=== PATIENT | female | born 1935 | race Caucasian/White ===

== ENCOUNTER 2017-05-09 18:12 | Inpatient (IN) | payer MEDICARE, MEDICAID ==
[2017-05-09 18:13] VITALS: PULSE 76
[2017-05-09] MEDS ORDERED: Sodium Chloride 0.9% 1,000 ML IV ONE (19:43)
--- NOTE | 2017-05-09 19:43 | C.PDOC ---
History Of Present Illness 81 year old female sent from correction being found to have altered mental status. As per correction, patient has not been recognizing things in the correction; they report she has a Hx of recurrent UTIs. Patient is currently complaining of abdominal pain; denies nausea, vomiting, or headache. Chief Complaint (Nursing): Fever History Per: Patient, EMS History/Exam Limitations: no limitations Onset/Duration Of Symptoms: Days Current Symptoms Are (Timing): Still Present Location Of Pain: Other (Abdomen) Sick Contacts (Context): None Associated Symptoms: Fever, Other ((+) AMS (-) Headache). denies: Nausea, Vomiting Ear Symptoms: Bilateral: None Recent travel outside of the [place]: No Additional History Per: Group Home Past Medical History Reviewed: Historical Data, Nursing Documentation, Vital Signs Vital Signs: Last Vital Signs Temp 98.1 F 05/09/17 21:30 Pulse 93 H 05/09/17 21:30 Resp 20 05/09/17 21:30 BP 144/56 L 05/09/17 21:30 Pulse Ox 96 05/09/17 21:30 - Medical History PMH: Arthritis (B/L KNEE R >L), 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), Dementia, Depression (sigle episode), Diabetes, HTN, Hypercholesterolemia, Hyperlipidemia, Osteoporosis, Parkinson's Disease, Rheumatoid Arthritis - [facility] Procedures PLICATION OF VENA CAVA (02/28/14) Family History: States: Unknown Family Hx - Social History Hx Tobacco Use: No Hx Alcohol Use: No Hx Substance Use: No - Immunization History Hx Tetanus Toxoid Vaccination: No Hx Influenza Vaccination: Yes Hx Pneumococcal Vaccination: Yes Review Of Systems Constitutional: Positive for: Fever Cardiovascular: Negative for: Chest Pain Respiratory: Negative for: Shortness of Breath Gastrointestinal: Positive for: Abdominal Pain. Negative for: Nausea, Vomiting Neurological: Positive for: Altered Mental Status. Negative for: Headache Physical Exam - Physical Exam Appears: Non-toxic, Other (Noted to have fever of 100.6) Skin: Normal Color, Warm, Dry Head: Atraumatic, Normacephalic Eye(s): bilateral: Normal Inspection Oral Mucosa: Moist Neck: Normal, No Midline Cervical Tenderness, No Paracervical Tenderness, Supple Chest: Symmetrical, No Tenderness Cardiovascular: Rhythm Regular Respiratory: Normal Breath Sounds, No Rales, No Rhonchi, No Wheezing Gastrointestinal/Abdominal: Soft, Tenderness (Nonspecific to mid abdomen), No Guarding, No Rebound Neurological/Psych: Other (Awake, Alert) ED Course And Treatment - Laboratory Results Result Diagrams: 05/09/17 20:02 05/09/17 20:02 O2 Sat by Pulse Oximetry: 91 (room air) Progress Note: CT abd/pel, CT head, blood work, CXR, and urinalysis ordered. IV fluids and toradol administered. Disposition Discussed With Dr.: Yu Franklin Doctor Will See Patient In The: Hospital Counseled Patient/Family Regarding: Diagnosis - Disposition Referrals: Faina Franklin MD [Medical Doctor] - Disposition: HOSPITALIZED Disposition Time: 22:44 Condition: STABLE Forms: [facility] ([place]) - POA Present On Arrival: None - Clinical Impression Clinical Impression: Altered mental status, Obstructive uropathy, Urinary tract infection - Scribe Statement The provider has reviewed the documentation as recorded by the Scribe Zenon Conklin All medical record entries made by the Scribe were at my direction and personally dictated by me. I have reviewed the chart and agree that the record accurately reflects my personal performance of the history, physical exam, medical decision making, and the department course for this patient. I have also personally directed, reviewed, and agree with the discharge instructions and disposition.
[2017-05-09] MEDS ORDERED: Iohexol 240 (50 ml) ONE (20:00)
[2017-05-09] MEDS ORDERED: Iohexol 240 (50 ml) PO ONE (20:00)
[2017-05-09 20:06] LABS: BASO # 0.1 K/uL (0.0-0.2); BASO % 0.6 % (0.0-2.0); EOS # 0.2 K/uL (0.0-0.7); EOS % 1.1 % (0.0-4.0); HEMOGLOBIN 11.6 g/dL (11.0-16.0); LYMPH # 3.8 K/uL (1.0-4.3); LYMPH % 24.1 % (20.0-40.0); MEAN CORPUSCULAR HEMOGLOBIN 31.5 pg (27.0-31.0); MEAN CORPUSCULAR HGB CONC 33.1 g/dL (33.0-37.0); MEAN PLATELET VOLUME 8.6 fL (7.2-11.7); MONO # 1.2 K/uL (0.0-0.8); MONO % 7.9 % (0.0-10.0); NEUT # 10.5 K/uL (1.8-7.0); NEUT % 66.3 % (50.0-75.0); NRBC % 0.1 % (0.0-2.0); RBC 3.69 Mil/uL (3.80-5.20); RED CELL DISTRIBUTION WIDTH 15.1 % (11.5-14.5); WHITE BLOOD COUNT 15.8 K/uL (4.8-10.8)
[2017-05-09] MEDS ORDERED: Sodium Chloride 0.9% 1,000 ML ONE (20:10)
[2017-05-09 20:18] LABS: CALCIUM 8.6 mg/dl (8.6-10.4); GFR AFRICAN-AMERICAN > 60; GFR NON-AFRICAN AMERICAN 60; LIPASE 300 U/L (23-300)
[2017-05-09 20:20] LABS: ALBUMIN 4.3 g/dL (3.5-5.0); ALT/SGPT 17 U/L (9-52); AST/SGOT 33 U/L (14-36); BLOOD UREA NITROGEN 18 mg/dL (7-17)
[2017-05-09] MEDS ORDERED: Iohexol 300 100 ML IJ ONE (20:30)
[2017-05-09 22:08] LABS: SQUAMOUS EPITHIAL 3 /hpf (0-5); URINE BACTERIA MOD (<OCC); URINE BILIRUBIN NEGATIVE (NEGATIVE); URINE BLOOD 1+ (NEGATIVE); URINE CLARITY Turbid (Clear); URINE COLOR Yellow (YELLOW); URINE GLUCOSE (UA) 3+ mg/dL (Normal); URINE LEUKOCYTE ESTERASE 3+ Leu/uL (Negative); URINE NITRATE POSITIVE (NEGATIVE); URINE PROTEIN 2+ mg/dL (NEGATIVE); URINE UROBILINOGEN NORMAL mg/dL (0.2-1.0); WBC CLUMPS MANY /hpf
--- NOTE | 2017-05-09 22:21 | CT ---
EXAM: CT Abdomen and Pelvis With Intravenous Contrast EXAM DATE/TIME: 05/09/2017 7:45 PM CLINICAL HISTORY: 81 years old, female; Pain; Abdominal pain; Generalized; Additional info: Mid abd pain TECHNIQUE: Axial computed tomography images of the abdomen and pelvis with intravenous contrast. All CT scans at this facility use one or more dose reduction techniques, viz.: automated exposure control; ma/kV adjustment per patient size (including targeted exams where dose is matched to indication; i.e. head); or iterative reconstruction technique. Coronal and sagittal reformatted images were created and reviewed. CONTRAST: 100 mL of omnipaque 300 administered intravenously. COMPARISON: There are no prior studies for comparison. FINDINGS: Artifacts: Motion artifact degrades image quality. Streak artifact degrades image quality. Lower thorax: Heart size is normal. There are coronary artery calcifications. There is minimal atelectasis and scarring at the lung bases. There is a small hiatal hernia. ABDOMEN: Liver: There is fatty infiltration of the liver.The liver is enlarged. Gallbladder and bile ducts: unremarkable Pancreas: Pancreas is mildly atrophic. Spleen: unremarkable Adrenals: unremarkable Kidneys and ureters: There is bilateral obstructive uropathy. There is bilateral pelvocaliectasis and ureterectasis. There are no renal or ureteral stones. Dilated ureters can be traced to the bladder. Stomach and bowel: Stomach is partially distended with an air-fluid level. Rotation is normal. There is no obstruction. Ileocecal region is unremarkable. There is a moderately large amount of stool in the right colon. Left colon is incompletely distended. There is scattered diverticulosis. Appendix: See stomach and bowel PELVIS: Bladder: Bladder is almost empty. There is marked bladder wall thickening and mucosal enhancement. There is perivesical inflammation. Reproductive: Uterus is absent. There are no adnexal masses. ABDOMEN and PELVIS: Intraperitoneal space: There is no significant fluid.There is no free air. Bones/joints: Bony structures are osteopenic. There are degenerative changes. There is sclerosis at the sacroiliac joints. Soft tissues: There are small fat containing inguinal hernias. Vasculature: An IVC filter is in place. There are vascular calcifications. There are vascular calcifications. Lymph nodes: There is no pathologic adenopathy. IMPRESSION: Bilateral obstructive uropathy secondary to bladder wall thickening; bladder wall thickening and inflammation infectious/inflammatory versus neoplastic; enlarged fatty liver; constipation, no bowel obstruction Additional nonemergent findings as described above.
[2017-05-09] MEDS ORDERED: Ciprofloxacin 400mg/200ml D5W 400 MG/200 ML BAG IVPB STA (22:35)
[2017-05-09] MEDS ORDERED: Ciprofloxacin 400mg/200ml D5W 400 MG/200 ML BAG IVPB ONE (22:39)
[2017-05-09] MEDS ORDERED: (Novolin R) Insulin Human Regular 100 units/ml vial SC ONE (22:49)
[2017-05-09] MEDS ORDERED: (Novolin R) Insulin Human Regular 100 units/ml vial ONE (23:00)
[2017-05-09] MEDS ORDERED: ACETAMINOPHEN 650 MG PO PRN (23:06)
[2017-05-10] MEDS ORDERED: (Novolog) Insulin Aspart, Recombinant 100 u/ml 10 ml vial SC SCH (07:30)
--- NOTE | 2017-05-10 08:31 | CT ---
PROCEDURE: CT HEAD WITHOUT CONTRAST. HISTORY: Altered mental status COMPARISON: MRI brain from 07/02/[address] from 06/30/2015. TECHNIQUE: Axial computed tomography images were obtained through the head/brain without intravenous contrast. Radiation dose: Total exam DLP = 841.54 mGy-cm. This CT exam was performed using one or more of the following dose reduction techniques: Automated exposure control, adjustment of the mA and/or kV according to patient size, and/or use of iterative reconstruction technique. FINDINGS: HEMORRHAGE: No intracranial hemorrhage. BRAIN: Again seen are severe chronic microangiopathic changes. There is no mass, mass effect or abnormal extra-axial fluid collection. Status post clipping of right ICA aneurysm with streak artifacts from cord limiting evaluation of this region. VENTRICLES: There is moderate age-related global parenchymal volume loss and proportionate enlargement of the ventricles and cortical sulci. CALVARIUM: The skull base and calvarium are normal. PARANASAL SINUSES: Predominantly clear. MASTOID AIR CELLS: Predominantly clear. OTHER FINDINGS: None. IMPRESSION: 1. No acute intracranial abnormality. 2. Severe chronic microangiopathic changes and moderate age-related global parenchymal volume loss. A preliminary report was provided by [employer] services.
--- NOTE | 2017-05-10 09:07 | RAD ---
PROCEDURE: CHEST RADIOGRAPH, 1 VIEW HISTORY: abd pain COMPARISON: Chest radiograph dated 06/30/2015 FINDINGS: LUNGS: Stable chronic prominence of the bilateral interstitial markings. PLEURA: No pneumothorax or pleural fluid seen. CARDIOVASCULAR: Atherosclerotic aortic calcifications. Cardiomediastinal silhouette within normal limits. OSSEOUS STRUCTURES: Unchanged. VISUALIZED UPPER ABDOMEN: Normal. OTHER FINDINGS: None. IMPRESSION: Stable chronic prominence of the bilateral interstitial markings. No focal consolidation or pleural effusion.
[2017-05-10] MEDS ORDERED: (Novolog) Insulin Aspart, Recombinant 100 u/ml 10 ml vial ONE ×2 (09:10→13:03)
[2017-05-10] MEDS ORDERED: DEXTRAN OU SCH (10:00)
[2017-05-10] MEDS ORDERED: TIMOLOL OU SCH (10:00)
[2017-05-10] MEDS ORDERED: ACARBOSE 50 MG PO SCH ×2 (10:00)
[2017-05-10] MEDS ORDERED: DORZOLAMIDE OU SCH (10:00)
[2017-05-10] MEDS ORDERED: HYPROMELLOSE OU SCH (10:00)
[2017-05-10] MEDS: Aritificial Tears (15ml) OU SCH ×3 (10:03→18:00)
[2017-05-10] MEDS: Ciprofloxacin 400mg/200ml D5W 400 MG/200 ML BAG IVPB SCH ×2 (10:03→21:32)
[2017-05-10] MEDS: Dorzolamide 2% Opht Sol 10ml OU SCH ×2 (10:04→21:35)
[2017-05-10] MEDS: Pantoprazole 40 mg EC Tab PO SCH (10:04)
[2017-05-10] MEDS: Enoxaparin 40 mg Syringe SC SCH (10:04)
[2017-05-10] MEDS: Insulin Detemir 100 units/ml Vial (Levemir) SC SCH ×2 (10:04→21:48)
[2017-05-10] MEDS: (Novolog) Insulin Aspart, Recombinant 100 u/ml 10 ml vial SC SCH ×3 (13:15→21:48)
--- NOTE | 2017-05-10 16:01 | CARD ---
APPROVED REPORT EKG Measurement Heart [id number] <Conclusion> Normal sinus rhythm Minimal voltage criteria for LVH, may be normal variant Borderline ECG
[2017-05-10 16:13] VITALS: RESP 20
--- NOTE | 2017-05-10 19:16 | CP.PCM.HP ---
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 - INTEGUMENTARY Hx Dermatological Problems: No - MUSCULOSKELETAL/RHEUMATOLOGICAL Hx Arthritis: Yes (B/L KNEE R >L) Hx Osteoporosis: Yes Hx Rheumatoid Arthritis: Yes - GASTROINTESTINAL Hx Gastrointestinal Disorders: Yes Hx Constipation: Yes Hx Gastroesophageal Reflux: Yes - GENITOURINARY/GYNECOLOGICAL Hx Genitourinary Disorders: No - PSYCHIATRIC Hx Depression: Yes (sigle episode) Hx Substance Use: No - SURGICAL HISTORY Hx Surgeries: Yes Hx Vascular Surgery: Yes (brain aneurysm) - ANESTHESIA Hx Anesthesia: Yes Hx Anesthesia Reactions: No Hx Malignant Hyperthermia: No Meds Allergies/Adverse Reactions: Allergies Allergy/AdvReac Type Severity Reaction Status Date / Time No Known Allergies Allergy Verified 05/09/17 18:31 Physical Exam - Constitutional Appears: Well - Head Exam Head Exam: ATRAUMATIC, NORMAL INSPECTION, NORMOCEPHALIC - Eye Exam Eye Exam: EOMI, Normal appearance, PERRL Pupil Exam: NORMAL ACCOMODATION, PERRL - ENT Exam ENT Exam: Mucous Membranes Moist, Normal Exam - Neck Exam Neck exam: Positive for: Normal Inspection - Respiratory Exam Respiratory Exam: Decreased Breath Sounds - Cardiovascular Exam Cardiovascular Exam: REGULAR RHYTHM, +S1, +S2 - GI/Abdominal Exam GI & Abdominal Exam: Diminished Bowel Sounds, Soft - Rectal Exam Rectal Exam: Deferred Results - Vital Signs Recent Vital Signs: Last Vital Signs Temp 98.0 F 05/10/17 15:00 Pulse 98 H 05/10/17 15:00 Resp 20 05/10/17 15:00 BP 125/79 05/10/17 15:00 Pulse Ox 97 05/10/17 15:00 - Labs Result Diagrams: 05/09/17 20:02 05/09/17 20:02 Labs: Laboratory Results - last 24 hr 05/09/17 05/09/17 05/09/17 20:02 20:02 21:52 WBC 15.8 H D RBC 3.69 L Hgb 11.6 Hct 35.0 MCV 95.0 D MCH 31.5 H MCHC 33.1 RDW 15.1 H Plt Count 322 MPV 8.6 Neut % (Auto) 66.3 Lymph % (Auto) 24.1 [place] % (Auto) 7.9 Eos % (Auto) 1.1 Baso % (Auto) 0.6 Neut # 10.5 H Lymph # 3.8 Wilcox # 1.2 H Eos # 0.2 Baso # 0.1 Sodium 130 L Potassium 5.2 Chloride 95 L Carbon Dioxide 25 Anion Gap 16 BUN 18 H Creatinine 0.9 Est GFR ( Amer) > 60 Est GFR (Non-Af Amer) 60 POC Glucose (mg/dL) Random Glucose 335 H Calcium 8.6 Total Bilirubin 0.9 AST 33 ALT 17 Alkaline Phosphatase 128 H Total Protein 8.4 H Albumin 4.3 Globulin 4.1 H Albumin/Globulin Ratio 1.0 Lipase 300 Urine Color Yellow Urine Clarity Turbid Urine pH 6.0 Ur Specific [place] 1.013 Urine Protein 2+ H Urine Glucose (UA) 3+ H Urine Ketones Negative Urine Blood 1+ H Urine Nitrate Positive H Urine Bilirubin Negative Urine Urobilinogen Normal Ur Leukocyte Esterase 3+ H Urine WBC (Auto) 2140 H Urine RBC (Auto) 63 H Urine WBC Clumps (Auto) Many H Ur Squamous Epith Cells 3 Urine Bacteria Mod H 05/09/17 05/10/17 05/10/17 22:55 08:08 11:43 WBC RBC Hgb Hct MCV MCH MCHC RDW Plt Count MPV Neut % (Auto) Lymph % (Auto) [place] % (Auto) Eos % (Auto) Baso % (Auto) Neut # Lymph # [place] # Eos # Baso # Sodium Potassium Chloride Carbon Dioxide Anion Gap BUN Creatinine Est GFR ( Amer) Est GFR (Non-Af Amer) POC Glucose (mg/dL) 250 H 270 H 320 H Random Glucose Calcium Total Bilirubin AST ALT Alkaline Phosphatase Total Protein Albumin Globulin Albumin/Globulin Ratio Lipase Urine Color Urine Clarity Urine pH Ur Specific [place] Urine Protein Urine Glucose (UA) Urine Ketones Urine Blood Urine Nitrate Urine Bilirubin Urine Urobilinogen Ur Leukocyte Esterase Urine WBC (Auto) Urine RBC (Auto) Urine WBC Clumps (Auto) Ur Squamous Epith Cells Urine Bacteria 05/10/17 16:02 WBC RBC Hgb Hct MCV MCH MCHC RDW Plt Count MPV Neut % (Auto) Lymph % (Auto) [place] % (Auto) Eos % (Auto) Baso % (Auto) Neut # Lymph # [place] # Eos # Baso # Sodium Potassium Chloride Carbon Dioxide Anion Gap BUN Creatinine Est GFR ( Amer) Est GFR (Non-Af Amer) POC Glucose (mg/dL) 235 H Random Glucose Calcium Total Bilirubin AST ALT Alkaline Phosphatase Total Protein Albumin Globulin Albumin/Globulin Ratio Lipase Urine Color Urine Clarity Urine pH Ur Specific [place] Urine Protein Urine Glucose (UA) Urine Ketones Urine Blood Urine Nitrate Urine Bilirubin Urine Urobilinogen Ur Leukocyte Esterase Urine WBC (Auto) Urine RBC (Auto) Urine WBC Clumps (Auto) Ur Squamous Epith Cells Urine Bacteria
[2017-05-11] MEDS: (Novolog) Insulin Aspart, Recombinant 100 u/ml 10 ml vial SC SCH ×4 (08:30→21:34)
[2017-05-11] MEDS: Dorzolamide 2% Opht Sol 10ml OU SCH ×2 (10:10→21:33)
[2017-05-11] MEDS: Enoxaparin 40 mg Syringe SC SCH (10:11)
[2017-05-11] MEDS: Aritificial Tears (15ml) OU SCH ×3 (10:11→18:00)
[2017-05-11] MEDS: Pantoprazole 40 mg EC Tab PO SCH (10:12)
[2017-05-11] MEDS: Insulin Detemir 100 units/ml Vial (Levemir) SC SCH ×2 (10:23→21:34)
[2017-05-11 11:28] LABS: BASO % 0.3 % (0.0-2.0); EOS # 0.2 K/uL (0.0-0.7); EOS % 1.8 % (0.0-4.0); HEMOGLOBIN 10.1 g/dL (11.0-16.0); LYMPH # 2.4 K/uL (1.0-4.3); LYMPH % 19.1 % (20.0-40.0); MEAN CELL VOLUME 95.3 fL (81.0-99.0); MEAN CORPUSCULAR HGB CONC 33.6 g/dL (33.0-37.0); MEAN PLATELET VOLUME 8.8 fL (7.2-11.7); MONO # 1.2 K/uL (0.0-0.8); MONO % 9.9 % (0.0-10.0); NEUT # 8.5 K/uL (1.8-7.0); NEUT % 68.9 % (50.0-75.0); RBC 3.15 Mil/uL (3.80-5.20); RED CELL DISTRIBUTION WIDTH 14.3 % (11.5-14.5); WHITE BLOOD COUNT 12.3 K/uL (4.8-10.8)
[2017-05-11 11:55] LABS: BLOOD UREA NITROGEN 19 mg/dL (7-17); CALCIUM 8.4 mg/dl (8.6-10.4); GFR AFRICAN-AMERICAN > 60; GFR NON-AFRICAN AMERICAN 53
--- NOTE | 2017-05-11 11:56 | CP.PCM.PN ---
Subjective - Date & Time of Evaluation Date of Evaluation: 05/11/17 Time of Evaluation: 08:40 - Subjective Subjective: clinically same Objective - Vital Signs/Intake and Output Vital Signs (last 24 hours): Temp Pulse Resp BP Pulse Ox 97.7 F 100 H 20 129/70 100 05/11/17 08:43 05/11/17 08:43 05/11/17 08:43 05/11/17 08:43 05/11/17 08:43 Intake and Output: 05/11/17 05/11/17 06:59 18:59 Intake Total 200 Balance 200 - Medications Medications: Current Medications Acetaminophen (Tylenol 325mg Tab) 650 mg PO Q4 PRN PRN Reason: Fever >100.4 F Artificial Tears (Artificial Tears) 1 ml OU TID [facility] Last Admin: 05/11/17 10:11 Dose: 1 drop Aspirin (Aspirin) 325 mg PO DAILY [facility] Last Admin: 05/11/17 10:12 Dose: 325 mg Carbidopa/Levodopa (Sinemet 10/) 1 tab PO BID [facility] Last Admin: 05/11/17 10:12 Dose: 1 tab Dorzolamide HCl (Trusopt) 0 ml OU Q12 [facility] Last Admin: 05/11/17 10:10 Dose: 1 drop Enoxaparin Sodium (Lovenox) 40 mg SC DAILY [facility] Last Admin: 05/11/17 10:11 Dose: 40 mg Meropenem 500 mg/ Sodium (Chloride) 100 mls @ 100 mls/hr IVPB Q8 [facility] Insulin Aspart (Novolog) 0 unit SC ACHS [facility] PRN Reason: Protocol Last Admin: 05/11/17 08:30 Dose: 2 unit Insulin Detemir (Levemir) 26 unit SC Q12 [facility] Last Admin: 05/11/17 10:23 Dose: 26 unit Levetiracetam (Keppra) 250 mg PO BID [facility] Last Admin: 05/11/17 10:13 Dose: 250 mg Loperamide HCl (Imodium) 2 mg PO QID [facility] Last Admin: 05/11/17 10:12 Dose: Not Given Metformin HCl (Glucophage) 500 mg PO BID [facility] Last Admin: 05/11/17 10:12 Dose: 500 mg Nateglinide (Starlix) 120 mg PO TID [facility] Last Admin: 05/11/17 10:12 Dose: 120 mg Pantoprazole Sodium (Protonix Ec Tab) 40 mg PO DAILY [facility] Last Admin: 05/11/17 10:12 Dose: 40 mg Rosuvastatin Calcium (Crestor) 20 mg PO [facility] Last Admin: 05/10/17 21:33 Dose: 20 mg Sennosides (Senokot Tab) 8.6 mg PO HS [facility] Last Admin: 05/10/17 21:33 Dose: 8.6 mg Sitagliptin Phosphate (Januvia) 50 mg PO DAILY [facility] Last Admin: 05/11/17 10:12 Dose: 50 mg Timolol Maleate (Timoptic 0.5% Ophth Soln) 0 drop OU BID [facility] Last Admin: 05/11/17 10:11 Dose: 1 drop - Labs Labs: 05/11/17 11:04 05/11/17 11:04 - Constitutional Appears: Well - Head Exam Head Exam: ATRAUMATIC, NORMAL INSPECTION, NORMOCEPHALIC - Eye Exam Eye Exam: EOMI, Normal appearance, PERRL Pupil Exam: NORMAL ACCOMODATION, PERRL - ENT Exam ENT Exam: Mucous Membranes Moist, Normal Exam - Neck Exam Neck Exam: Full ROM, Normal Inspection. absent: Lymphadenopathy - Respiratory Exam Respiratory Exam: Decreased Breath Sounds - Cardiovascular Exam Cardiovascular Exam: REGULAR RHYTHM, +S1, +S2 - GI/Abdominal Exam GI & Abdominal Exam: Soft, Diminished Bowel Sounds - Rectal Exam Rectal Exam: Deferred
[2017-05-11] MEDS ORDERED: Meropenem 500 MG in Sodium Chloride 0.9% 100 ML IVPB SCH (14:00)
--- NOTE | 2017-05-11 19:31 | CP.PCM.CON ---
History of Present Illness - History of Present Illness History of Present Illness: 81 year old female sent from alf being found to have altered mental status. As per alf, patient has not been recognizing things in the alf; they report she has a Hx of recurrent UTIs. Patient is currently complaining of abdominal pain; denies nausea, vomiting, or headache. 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), Dementia, Depression (sigle episode), Diabetes, HTN, Hypercholesterolemia, Hyperlipidemia, Osteoporosis, Parkinson's Disease, Rheumatoid Arthritis Review of Systems - Review of Systems Systems not reviewed;Unavailable: Altered Mental Status - Constitutional Constitutional: As Per HPI - EENT Eyes: absent: As Per HPI, Blind Spots, Blurred Vision, Change in Vision, Decreased Night Vision, Diplopia, Discharge, Dry Eye, Exophthalmos, Floaters, Irritation, Itchy Eyes, Loss of Peripheral Vision, Pain, Photophobia, Requires Corrective Lenses, Sees Flashes, Spots in Vision, Tunnel Vision, Other Visual Disturbances, Loss of Vision, Other Ears: absent: As Per HPI, Decreased Hearing, Ear Discharge, Ear Pain, Tinnitus, Abnormal Hearing, Disequilibrium, Dizziness, Other Nose/Mouth/Throat: absent: As Per HPI, Epistaxis, Nasal Congestion, Nasal Discharge, Nasal Obstruction, Nasal Trauma, Nose Pain, Post Nasal Drip, Sinus Pain, Sinus Pressure, Bleeding Gums, Change in Voice, Dental Pain, Dry Mouth, Dysphagia, Halitosis, Hoarsness, Lip Swelling, Mouth Lesions, Mouth Pain, Odynophagia, Sore Throat, Throat Swelling, Tongue Swelling, Facial Pain, Neck Pain, Neck Mass, Other - Breasts Breasts: absent: As Per HPI, Change in Shape, Mass, Pain, Nipple Discharge, Nipple Inversion, Skin Changes, Swelling, Other - Cardiovascular Cardiovascular: absent: As Per HPI, Acrocyanosis, Chest Pain, Chest Pain at Rest , Chest Pain with Activity, Claudication, Diaphoresis, Dyspnea, Dyspnea on Exertion, Edema, Irregular Heart Rhythm, Pain Radiating to Arm/Neck/Jaw, Leg Edema, Leg Ulcers, Lightheadedness, Orthopnea, Palpitations, Paroxysmal Nocturnal Dyspnea, Pedal Edema, Radiating Pain, Rapid Heart Rate, Slow Heart Rate, Syncope, Other - Respiratory Respiratory: absent: As Per HPI, Cough, Dyspnea, Hemoptysis, Dyspnea on Exertion , Wheezing, Snoring, Stridor, Pain on Inspiration, Chest Congestion, Excessive Mucous Production, Change in Mucous Color, Pain with Coughing, Other - Gastrointestinal Gastrointestinal: absent: As Per HPI, Abdominal Pain, Belching, Bloating, Change in Bowel Habits, Change in Stool Character, Coffee Ground Emesis, Constipation, Cramping, Diarrhea, Dyspepsia, Dysphagia, Early Satiety, Excessive Flatus, Fecal Incontinence, Heartburn, Hematemesis, Hematochezia, Loose Stools, Melena, Nausea, Odynophagia, Temesmus, Vomiting, Other - Genitourinary Genitourinary: As Per HPI - Reproductive: Female Reproductive:Female: absent: As Per HPI, Amenorrhea, Amenorrhea/ Control, Currently Menstual, Cycle <21 Days, Cycle >35 Days, Cycle Variable, Menses 1-7 Days, Menses >/= 8 Days, Menses Variable, Cycle > 4 Weeks Between, No Menses for 6 Months, Heavy Menses, Light Menses, Normal Menses, Spotting Between Cycles , S/P Hysterectomy, Menopausal, Post Menopausal, Premenarche, Abnormal Vaginal Bleeding, Dysmenorrhea, Dyspareunia, Genital Lesions, Genital Pruritis, Pelvic Pain, Prolapse Symptoms, Sexual Dysfunction, Vaginal Discharge, Vaginal Dryness , Vaginal Odor, Vaginal Pruritis, Other - Menstruation Menstruation: absent: As Per HPI, Amenorrhea, Amenorrhea/ Control, Currently Menstual, Cycle <21 Days, Cycle >35 Days, Cycle Variable, Menses 1-7 Days, Menses >/= 8 Days, Menses Variable, Cycle > 4 Weeks Between, No Menses for 6 Months, Heavy Menses, Light Menses, Normal Menses, Spotting Between Cycles , S/P Hysterectomy, Menopausal, Post Menopausal, Premenarche, Abnormal Vaginal Bleeding, Dysmenorrhea, Other - Musculoskeletal Musculoskeletal: absent: As Per HPI, Abnormal Gait, Arthralgias, Atrophy, Back Pain, Deformity, Joint Swelling, Limited Range of Motion, Loss of Height, Muscle Cramps, Muscle Weakness, Myalgias, Neck Pain, Numbness, Radiating Pain into Limb, Stiffness, Tingling, Other - Integumentary Integumentary: absent: As Per HPI, Acne, Alopecia, Bleeding Lesions, Change in Hair, Change in Nails, Change in Pigmentation, Changing Lesions, Dry Skin, Erythema, Furuncle, Hirsutism, Lesions, New Lesions, Non-Healing Lesions, Photosensitivity, Pruritus, Rash, Skin Pain, Skin Ulcer, Sores, Striae, Swelling , Unusual Bruising, Wounds, Jaundice, Other - Neurological Neurological: absent: As Per HPI, Abnormal Gait, Abnormal Hearing, Abnormal Movements, Abnormal Speech, Behavioral Changes, Burning Sensations, Confusion, Convulsions, Disequilibrium, Dizziness, Numbness, Focal Weakness, Frequent Falls , Headaches, Lack of Coordination, Loss of Vision, Memory Loss, Paresthesias, Radicular Pain, Restless Legs, Sensory Deficit, Syncope, Tingling, Tremor, Vertigo, Weakness, Other Visual Disturbances, Other - Psychiatric Psychiatric: absent: As Per HPI, Abnormal Sleep Pattern, Anhedonia, Anxiety, Auditory Hallucinations, Behavioral Changes, Change in Appetite, Change in Libido, Confusion, Depression, Difficulty Concentrating, Hallucinations, Homicidal Ideation, Hopelessness, Irritability, Memory Loss, Mood Swings, Panic Attacks, Paranoia, Suicidal Ideation, Visual Hallucinations, Tactile Hallucinations, Other - Endocrine Endocrine: absent: As Per HPI, Change in Body Appearance, Change in Libido, Cold Intolorance, Deepening of Voice, Excessive Sweating, Fatigue, Flushing, Heat Intolorance, Increase in Ring/Shoe/Hat Size, Palpitations, Polydipsia, Polyphagia, Polyuria, Other - Hematologic/Lymphatic Hematologic: absent: As Per HPI, Easy Bleeding, Easy Bruising, Lymphadenopathy, Other Past Patient History - Past Medical History & Family History Past Medical History?: Yes - Past Social History Smoking Status: unknown - CARDIAC Hx Hypercholesterolemia: Yes Hx Hypertension: Yes - PULMONARY Hx Respiratory Disorders: No - NEUROLOGICAL Hx Dementia: Yes Hx Parkinson's Disease: Yes - HEENT Hx HEENT Problems: No - RENAL Hx Chronic Kidney Disease: No - ENDOCRINE/METABOLIC Hx Diabetes Mellitus Type 2: Yes - HEMATOLOGICAL/ONCOLOGICAL Hx Blood Disorders: No Other/Comment: 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 - INTEGUMENTARY Hx Dermatological Problems: No - MUSCULOSKELETAL/RHEUMATOLOGICAL Hx Arthritis: Yes (B/L KNEE R >L) Hx Falls: Yes (according to friend) Hx Osteoporosis: Yes Hx Rheumatoid Arthritis: Yes - GASTROINTESTINAL Hx Gastrointestinal Disorders: Yes Hx Constipation: Yes Hx Gastroesophageal Reflux: Yes - GENITOURINARY/GYNECOLOGICAL Hx Genitourinary Disorders: No - PSYCHIATRIC Hx Depression: Yes (sigle episode) Hx Substance Use: No - SURGICAL HISTORY Hx Surgeries: Yes Hx Vascular Surgery: Yes (brain aneurysm) - ANESTHESIA Hx Anesthesia: Yes Hx Anesthesia Reactions: No Hx Malignant Hyperthermia: No Meds Allergies/Adverse Reactions: Allergies Allergy/AdvReac Type Severity Reaction Status Date / Time No Known Allergies Allergy Verified 05/09/17 18:31 - Medications Medications: Current Medications Acetaminophen (Tylenol 325mg Tab) 650 mg PO Q4 PRN PRN Reason: Fever >100.4 F Artificial Tears (Artificial Tears) 1 ml OU TID [facility] Last Admin: 05/11/17 18:00 Dose: 1 drop Aspirin (Aspirin) 325 mg PO DAILY [facility] Last Admin: 05/11/17 10:12 Dose: 325 mg Carbidopa/Levodopa (Sinemet 10/100) 1 tab PO BID [facility] Last Admin: 05/11/17 18:01 Dose: 1 tab Dorzolamide HCl (Trusopt) 0 ml OU Q12 [facility] Last Admin: 05/11/17 10:10 Dose: 1 drop Enoxaparin Sodium (Lovenox) 40 mg SC DAILY [facility] Last Admin: 05/11/17 10:11 Dose: 40 mg Meropenem 500 mg/ Sodium (Chloride) 100 mls @ 100 mls/hr IVPB Q8 [facility] Last Admin: 05/11/17 13:56 Dose: 100 mls/hr Insulin Aspart (Novolog) 0 unit SC ACHS [facility] PRN Reason: Protocol Last Admin: 05/11/17 16:30 Dose: 1 unit Insulin Detemir (Levemir) 26 unit SC Q12 [facility] Last Admin: 05/11/17 10:23 Dose: 26 unit Levetiracetam (Keppra) 250 mg PO BID [facility] Last Admin: 05/11/17 18:01 Dose: 250 mg Loperamide HCl (Imodium) 2 mg PO QID [facility] Last Admin: 05/11/17 18:04 Dose: 2 mg Metformin HCl (Glucophage) 500 mg PO BID [facility] Last Admin: 05/11/17 18:01 Dose: 500 mg Nateglinide (Starlix) 120 mg PO TID [facility] Last Admin: 05/11/17 18:01 Dose: 120 mg Pantoprazole Sodium (Protonix Ec Tab) 40 mg PO DAILY [facility] Last Admin: 05/11/17 10:12 Dose: 40 mg Rosuvastatin Calcium (Crestor) 20 mg PO [facility] Last Admin: 05/10/17 21:33 Dose: 20 mg Sennosides (Senokot Tab) 8.6 mg PO HS [facility] Last Admin: 05/10/17 21:33 Dose: 8.6 mg Sitagliptin Phosphate (Januvia) 50 mg PO DAILY [facility] Last Admin: 05/11/17 10:12 Dose: 50 mg Timolol Maleate (Timoptic 0.5% Ophth Soln) 0 drop OU BID [facility] Last Admin: 05/11/17 18:00 Dose: 1 drop Physical Exam - Constitutional Appears: Confused, Cachectic, Chronically Ill - Head Exam Head Exam: ATRAUMATIC, NORMAL INSPECTION, NORMOCEPHALIC - Eye Exam Eye Exam: PERRL. absent: Scleral icterus - ENT Exam ENT Exam: Mucous Membranes Dry - Neck Exam Neck exam: Negative for: Lymphadenopathy - Respiratory Exam Respiratory Exam: Decreased Breath Sounds, Rhonchi - Cardiovascular Exam Cardiovascular Exam: REGULAR RHYTHM, +S1, +S2 - GI/Abdominal Exam GI & Abdominal Exam: Diminished Bowel Sounds, Soft. absent: Tenderness - Rectal Exam Rectal Exam: Deferred - Exam Exam: NORMAL INSPECTION - Extremities Exam Extremities exam: Positive for: pedal pulses present. Negative for: calf tenderness, pedal edema, tenderness - Back Exam Back exam: absent: CVA tenderness (L), CVA tenderness (R) - Neurological Exam Neurological exam: Alert, Altered, CN II-XII Intact - Psychiatric Exam Psychiatric exam: Depressed - Skin Skin Exam: Dry Results - Vital Signs Recent Vital Signs: Last Vital Signs Temp 97.7 F 05/11/17 08:43 Pulse 100 H 05/11/17 08:43 Resp 20 05/11/17 08:43 BP 129/70 05/11/17 08:43 Pulse Ox 100 05/11/17 08:43 - Labs Result Diagrams: 05/11/17 11:04 05/11/17 11:04 Labs: Laboratory Results - last 24 hr 05/10/17 05/11/17 05/11/17 20:43 02:24 07:13 WBC RBC Hgb Hct MCV MCH MCHC RDW Plt Count MPV Neut % (Auto) Lymph % (Auto) [place] % (Auto) Eos % (Auto) Baso % (Auto) Neut # Lymph # [place] # Eos # Baso # Sodium Potassium Chloride Carbon Dioxide Anion Gap BUN Creatinine Est GFR ( Amer) Est GFR (Non-Af Amer) POC Glucose (mg/dL) 171 H 230 H 212 H Random Glucose Calcium 05/11/17 05/11/17 05/11/17 11:04 11:04 11:22 WBC 12.3 H RBC 3.15 L Hgb 10.1 L Hct 30.0 L MCV 95.3 MCH 32.0 H MCHC 33.6 RDW 14.3 Plt Count 277 MPV 8.8 Neut % (Auto) 68.9 Lymph % (Auto) 19.1 L [place] % (Auto) 9.9 Eos % (Auto) 1.8 Baso % (Auto) 0.3 Neut # 8.5 H Lymph # 2.4 [place] # 1.2 H Eos # 0.2 Baso # 0.0 Sodium 129 L Potassium 4.6 Chloride 97 L Carbon Dioxide 24 Anion Gap 13 BUN 19 H Creatinine 1.0 Est GFR ( Amer) > 60 Est GFR (Non-Af Amer) 53 POC Glucose (mg/dL) 311 H Random Glucose 279 H Calcium 8.4 L 05/11/17 16:41 WBC RBC Hgb Hct MCV MCH MCHC RDW Plt Count MPV Neut % (Auto) Lymph % (Auto) [place] % (Auto) Eos % (Auto) Baso % (Auto) Neut # Lymph # [place] # Eos # Baso # Sodium Potassium Chloride Carbon Dioxide Anion Gap BUN Creatinine Est GFR ( Amer) Est GFR (Non-Af Amer) POC Glucose (mg/dL) 184 H Random Glucose Calcium Assessment & Plan (1) Altered mental status Status: Acute (2) Obstructive uropathy Status: Acute (3) Urinary tract infection Status: Acute (4) Diabetes mellitus Status: Chronic (5) History of brain surgery Status: Chronic (6) History of dementia Status: Chronic
[2017-05-11] MEDS: Cefepime IV 1 gm in Dextrose 1 GM/50 ML BAG IVPB SCH (20:00)
[2017-05-12] MEDS: Meropenem 500 MG in Sodium Chloride 0.9% 100 ML IVPB SCH ×2 (03:44→12:19)
[2017-05-12 07:45] LABS: BASO % 0.4 % (0.0-2.0); EOS # 0.2 K/uL (0.0-0.7); HEMOGLOBIN 10.1 g/dL (11.0-16.0); LYMPH # 2.3 K/uL (1.0-4.3); LYMPH % 20.7 % (20.0-40.0); MEAN CELL VOLUME 94.5 fL (81.0-99.0); MEAN CORPUSCULAR HEMOGLOBIN 32.4 pg (27.0-31.0); MEAN CORPUSCULAR HGB CONC 34.3 g/dL (33.0-37.0); MEAN PLATELET VOLUME 8.5 fL (7.2-11.7); MONO # 1.1 K/uL (0.0-0.8); MONO % 9.7 % (0.0-10.0); NEUT # 7.6 K/uL (1.8-7.0); NEUT % 67.2 % (50.0-75.0); RBC 3.14 Mil/uL (3.80-5.20); RED CELL DISTRIBUTION WIDTH 14.8 % (11.5-14.5); WHITE BLOOD COUNT 11.3 K/uL (4.8-10.8)
[2017-05-12 07:46] LABS: BLOOD UREA NITROGEN 20 mg/dL (7-17); CALCIUM 8.8 mg/dl (8.6-10.4); GFR AFRICAN-AMERICAN > 60; GFR NON-AFRICAN AMERICAN 60
[2017-05-12] MEDS: (Novolog) Insulin Aspart, Recombinant 100 u/ml 10 ml vial SC SCH ×2 (08:43→12:27)
[2017-05-12 08:44] VITALS: TEMP 98.5; O2SAT 97
[2017-05-12] MEDS: Cefepime IV 1 gm in Dextrose 1 GM/50 ML BAG IVPB SCH (08:45)
[2017-05-12] MEDS: Insulin Detemir 100 units/ml Vial (Levemir) SC SCH (11:23)
[2017-05-12] MEDS: Pantoprazole 40 mg EC Tab PO SCH (11:24)
[2017-05-12] MEDS: Enoxaparin 40 mg Syringe SC SCH (11:24)
[2017-05-12] MEDS: Dorzolamide 2% Opht Sol 10ml OU SCH (11:27)
[2017-05-12] MEDS: Aritificial Tears (15ml) OU SCH ×2 (11:27→14:18)
--- NOTE | 2017-05-12 13:37 | CP.PCM.PN ---
Subjective - Date & Time of Evaluation Date of Evaluation: 05/12/17 Time of Evaluation: 08:00 - Subjective Subjective: afeb on iv antibiotics cultures noted Objective - Vital Signs/Intake and Output Vital Signs (last 24 hours): Temp Pulse Resp BP Pulse Ox 98.5 F 83 20 124/64 97 05/12/17 08:43 05/12/17 08:43 05/12/17 08:43 05/12/17 08:43 05/12/17 08:43 Intake and Output: 05/12/17 05/12/17 06:59 18:59 Intake Total 400 Output Total 1400 Balance -1000 - Medications Medications: Current Medications Acetaminophen (Tylenol 325mg Tab) 650 mg PO Q4 PRN PRN Reason: Fever >100.4 F Artificial Tears (Artificial Tears) 1 ml OU TID [facility] Last Admin: 05/12/17 11:27 Dose: 1 drop Aspirin (Aspirin) 325 mg PO DAILY [facility] Last Admin: 05/12/17 11:24 Dose: 325 mg Carbidopa/Levodopa (Sinemet 10/100) 1 tab PO BID [facility] Last Admin: 05/12/17 12:06 Dose: 1 tab Dorzolamide HCl (Trusopt) 0 ml OU Q12 [facility] Last Admin: 05/12/17 11:27 Dose: 1 drop Enoxaparin Sodium (Lovenox) 40 mg SC DAILY [facility] Last Admin: 05/12/17 11:24 Dose: 40 mg Meropenem 500 mg/ Sodium (Chloride) 100 mls @ 100 mls/hr IVPB Q8H [facility] Last Admin: 05/12/17 12:19 Dose: 100 mls/hr Insulin Aspart (Novolog) 0 unit SC ACHS [facility] PRN Reason: Protocol Last Admin: 05/12/17 12:27 Dose: 4 unit Insulin Detemir (Levemir) 26 unit SC Q12 [facility] Last Admin: 05/12/17 11:23 Dose: 26 unit Levetiracetam (Keppra) 250 mg PO BID [facility] Last Admin: 05/12/17 11:25 Dose: 250 mg Loperamide HCl (Imodium) 2 mg PO QID [facility] Last Admin: 05/12/17 11:26 Dose: Not Given Metformin HCl (Glucophage) 500 mg PO BID [facility] Last Admin: 05/12/17 11:25 Dose: 500 mg Nateglinide (Starlix) 120 mg PO TID [facility] Last Admin: 05/12/17 12:06 Dose: 120 mg Pantoprazole Sodium (Protonix Ec Tab) 40 mg PO DAILY [facility] Last Admin: 05/12/17 11:24 Dose: 40 mg Rosuvastatin Calcium (Crestor) 20 mg PO HS [facility] Last Admin: 05/11/17 21:32 Dose: 20 mg Sennosides (Senokot Tab) 8.6 mg PO HS [facility] Last Admin: 05/11/17 21:35 Dose: 8.6 mg Sitagliptin Phosphate (Januvia) 50 mg PO DAILY [facility] Last Admin: 05/12/17 11:25 Dose: 50 mg Timolol Maleate (Timoptic 0.5% Ophth Soln) 0 drop OU BID [facility] Last Admin: 05/12/17 11:26 Dose: 1 drop - Labs Labs: 05/12/17 07:14 05/12/17 07:14 - Constitutional Appears: Non-toxic, Chronically Ill - Head Exam Head Exam: NORMOCEPHALIC - Eye Exam Eye Exam: PERRL - ENT Exam ENT Exam: Mucous Membranes Dry - Neck Exam Neck Exam: absent: Thyromegaly - Respiratory Exam Respiratory Exam: Decreased Breath Sounds - Cardiovascular Exam Cardiovascular Exam: REGULAR RHYTHM - GI/Abdominal Exam GI & Abdominal Exam: Distended Assessment and Plan (1) Altered mental status Status: Acute (2) Obstructive uropathy Status: Acute (3) Urinary tract infection Status: Acute (4) Diabetes mellitus Status: Chronic (5) History of brain surgery Status: Chronic (6) History of dementia Status: Chronic
--- NOTE | 2017-05-12 15:32 | CP.PCM.PN ---
Subjective - Date & Time of Evaluation Date of Evaluation: 05/12/17 Time of Evaluation: 15:32 - Subjective Subjective: Alert, awake, no sob or chest pains. kimble draining clear urine. Objective - Vital Signs/Intake and Output Vital Signs (last 24 hours): Temp Pulse Resp BP Pulse Ox 98.5 F 83 20 124/64 97 05/12/17 08:43 05/12/17 13:45 05/12/17 08:43 05/12/17 13:45 05/12/17 13:45 Intake and Output: 05/12/17 05/12/17 06:59 18:59 Intake Total 400 Output Total 1400 Balance -1000 - Medications Medications: Current Medications Acetaminophen (Tylenol 325mg Tab) 650 mg PO Q4 PRN PRN Reason: Fever >100.4 F Artificial Tears (Artificial Tears) 1 ml OU TID [facility] Last Admin: 05/12/17 14:18 Dose: 1 drop Aspirin (Aspirin) 325 mg PO DAILY [facility] Last Admin: 05/12/17 11:24 Dose: 325 mg Carbidopa/Levodopa (Sinemet 10/100) 1 tab PO BID [facility] Last Admin: 05/12/17 12:06 Dose: 1 tab Dorzolamide HCl (Trusopt) 0 ml OU Q12 [facility] Last Admin: 05/12/17 11:27 Dose: 1 drop Enoxaparin Sodium (Lovenox) 40 mg SC DAILY [facility] Last Admin: 05/12/17 11:24 Dose: 40 mg Meropenem 500 mg/ Sodium (Chloride) 100 mls @ 100 mls/hr IVPB Q8H [facility] Last Admin: 05/12/17 12:19 Dose: 100 mls/hr Insulin Aspart (Novolog) 0 unit SC ACHS [facility] PRN Reason: Protocol Last Admin: 05/12/17 12:27 Dose: 4 unit Insulin Detemir (Levemir) 26 unit SC Q12 [facility] Last Admin: 05/12/17 11:23 Dose: 26 unit Levetiracetam (Keppra) 250 mg PO BID [facility] Last Admin: 05/12/17 11:25 Dose: 250 mg Loperamide HCl (Imodium) 2 mg PO QID [facility] Last Admin: 05/12/17 11:26 Dose: Not Given Metformin HCl (Glucophage) 500 mg PO BID [facility] Last Admin: 05/12/17 11:25 Dose: 500 mg Nateglinide (Starlix) 120 mg PO TID [facility] Last Admin: 05/12/17 14:18 Dose: 120 mg Pantoprazole Sodium (Protonix Ec Tab) 40 mg PO DAILY [facility] Last Admin: 05/12/17 11:24 Dose: 40 mg Rosuvastatin Calcium (Crestor) 20 mg PO [facility] Last Admin: 05/11/17 21:32 Dose: 20 mg Sennosides (Senokot Tab) 8.6 mg PO [facility] Last Admin: 05/11/17 21:35 Dose: 8.6 mg Sitagliptin Phosphate (Januvia) 50 mg PO DAILY [facility] Last Admin: 05/12/17 11:25 Dose: 50 mg Timolol Maleate (Timoptic 0.5% Ophth Soln) 0 drop OU BID [facility] Last Admin: 05/12/17 11:26 Dose: 1 drop - Labs Labs: 05/12/17 07:14 05/12/17 07:14 Assessment and Plan - Assessment and Plan (Free Text) Assessment: Patient is seen and examined. Alert, awake, out of bed on the chair. Still has some pain in the abdomen. Kimble is draining well, no bleeding. Discussed with Dr Walsh and DR Pedro Franklin, plan to discharge back to [facility], continie iv meropenum for 7 days for UTI. To follow up with in the office. Will discharge with kimble.
[2017-05-12 16:47] VITALS: BP 136/80; PULSE 97
== END 2017-05-12 17:02 | DRG 690 ==
LOC: C.ER 18:12 → C.9E 22:46 → C.3T 05-10 13:45
PROVIDERS: ADMIT Internal Medicine Nephrology; ATTEND Internal Medicine Nephrology
DX: N39.0 Urinary tract infection, site not specified (principal); G20 Parkinson's disease; E11.9 Type 2 diabetes mellitus without complications; N13.9 Obstructive and reflux uropathy, unspecified; F32.9 Major depressive disorder, single episode, unspecified; E78.00 Pure hypercholesterolemia, unspecified; I10 Essential (primary) hypertension; Z86.73 Personal history of transient ischemic attack (TIA), and cerebral infarction without residual deficits; M81.0 Age-related osteoporosis without current pathological fracture; F02.80 Dementia in other diseases classified elsewhere, unspecified severity, without behavioral disturbance, psychotic disturbance, mood disturbance, and anxiety; M06.9 Rheumatoid arthritis, unspecified; Z79.4 Long term (current) use of insulin

== ENCOUNTER 2017-09-17 20:37 | Emergency (ER) | payer MEDICARE, MEDICAID ==
[2017-09-17 20:38] VITALS: PULSE 76
[2017-09-17 20:50] VITALS: BMI 28.3
[2017-09-17] MEDS ORDERED: Epinephrine /Lidocaine HCL 1:100,000/2% 30 ml INJ STA (21:27)
--- NOTE | 2017-09-17 21:39 | C.PDOC ---
History Of Present Illness 81 year old female is brought to the ED by EMS for evaluation of left hip pain and laceration. Patient reports she fell from her wheelchair when transferring from the chair to her bed. Patient has a 3cm laceration to the occipital scalp. Patient denies fever, chills, visual changes, weakness, numbness. - HPI Time Seen by Provider: 09/17/17 21:22 Chief Complaint (Nursing): Trauma History Per: Patient History/Exam Limitations: no limitations Onset/Duration Of Symptoms: Hrs Injury Occurred (Timing): Just Before Arrival Location Of Injury: Posterior: Head Severity: None Recent travel outside of the [place]: No Additional History Per: Patient - Fall Fall:Prior To Injury: Lost Balance Past Medical History Reviewed: Historical Data, Nursing Documentation, Vital Signs Vital Signs: Last Vital Signs Temp 98.8 F 09/17/17 23:24 Pulse 85 09/17/17 23:24 Resp 20 09/17/17 23:24 BP 154/64 H 09/17/17 23:24 Pulse Ox 98 09/17/17 23:58 - Medical History PMH: Arthritis (B/L KNEE R >L), 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), Dementia, Depression (sigle episode), Diabetes, HTN, Hypercholesterolemia, Hyperlipidemia, Osteoporosis, Parkinson's Disease, Rheumatoid Arthritis Denies: Chronic Kidney Disease Surgical History: No Surg Hx - [facility] Procedures PLICATION OF VENA CAVA (02/28/14) Family History: States: Unknown Family Hx - Social History Hx Tobacco Use: No Hx Alcohol Use: No Hx Substance Use: No - Immunization History Hx Tetanus Toxoid Vaccination: No Hx Influenza Vaccination: Yes Hx Pneumococcal Vaccination: Yes Review Of Systems Constitutional: Negative for: Fever, Chills Eyes: Negative for: Vision Change Cardiovascular: Negative for: Chest Pain, Palpitations Respiratory: Negative for: Shortness of Breath Gastrointestinal: Negative for: Nausea, Vomiting Neurological: Positive for: Headache. Negative for: Weakness, Numbness Physical Exam - Physical Exam Appears: Non-toxic, No Acute Distress, Other (elderly female) Skin: Normal Color, Warm, Dry Head: Atraumatic, Normacephalic, Laceration (3 cm occipital scalp) Eye(s): bilateral: Normal Inspection, PERRL, EOMI Oral Mucosa: Moist Neck: Normal ROM, Supple Chest: Symmetrical Cardiovascular: Rhythm Regular, No Murmur Respiratory: Normal Breath Sounds, No Rales, No Rhonchi, No Wheezing Gastrointestinal/Abdominal: Soft, No Tenderness, No Guarding, No Rebound Extremity: Normal ROM, No Tenderness, Capillary Refill, No Swelling Neurological/Psych: Oriented x3, Normal Speech Gait: Other (wheelchair bound) ED Course And Treatment - Laboratory Results Result Diagrams: 09/17/17 22:19 09/17/17 22:19 O2 Sat by Pulse Oximetry: 98 (ON RA) Pulse Ox Interpretation: Normal Reevaluation Time: 23:56 Reassessment Condition: Improved Laceration - Laceration Repair occipital Wound Length (In cm): 3 Description Of Wound: Linear Wound Cleansed With: Betadine, Sterile Saline Anesthesia: Lidocaine 2%, With Epi Wound Examination: Irrigated With Saline, No FB With Wound Exploration Wound Closure: [place] Wound Complexity: Simple Medical Decision Making Medical Decision Making: Plan: * CT head * EKG * Labs * Motrin 600 mg PO * Ultram 50 mg PO * Left hip X-RAy accidental fall from wheelchair due to unlocked brakes 3 cm lac R occiput now stapled head CT neg (old aneurysmal clip) L hip pain but no fx/disloc. Disposition Doctor Will See Patient In The: Office Counseled Patient/Family Regarding: Studies Performed, Diagnosis - Disposition Referrals: Whitney Clifford MD [Staff Provider] - Disposition: HOME/ ROUTINE Disposition Time: 23:57 Condition: GOOD Additional Instructions: staple removal in 1 week (from today 09/17/17)= 09/24/17 ice packs to the scalp for pain control Hip pain no hip fracture Motrin 400-600 mg every 6 hours as needed follow-up with Dr. Clifford as needed. Instructions: Contusion (DC), Laceration Repair With Russell (DC), Minor Head Injury Forms: [facility] (Tongan) - Clinical Impression Clinical Impression: Scalp laceration, Contusion, buttock - Scribe Statement The provider has reviewed the documentation as recorded by the Scribe Michael Kulkarni All medical record entries made by the Scribe were at my direction and personally dictated by me. I have reviewed the chart and agree that the record accurately reflects my personal performance of the history, physical exam, medical decision making, and the department course for this patient. I have also personally directed, reviewed, and agree with the discharge instructions and disposition.
[2017-09-17 22:23] LABS: BASO # 0.1 K/uL (0.0-0.2); BASO % 0.6 % (0.0-2.0); EOS # 0.4 K/uL (0.0-0.7); EOS % 2.9 % (0.0-4.0); HEMOGLOBIN 10.7 g/dL (11.0-16.0); LYMPH # 4.2 K/uL (1.0-4.3); LYMPH % 32.9 % (20.0-40.0); MEAN CORPUSCULAR HEMOGLOBIN 30.3 pg (27.0-31.0); MEAN CORPUSCULAR HGB CONC 32.8 g/dL (33.0-37.0); MONO # 0.9 K/uL (0.0-0.8); MONO % 6.8 % (0.0-10.0); NEUT # 7.2 K/uL (1.8-7.0); NEUT % 56.8 % (50.0-75.0); NRBC % 0.1 % (0.0-2.0); RBC 3.54 Mil/uL (3.80-5.20); RED CELL DISTRIBUTION WIDTH 16.4 % (11.5-14.5); WHITE BLOOD COUNT 12.6 K/uL (4.8-10.8)
[2017-09-17 22:28] LABS: PROTHROMBIN TIME 11.1 SECONDS (9.7-12.2)
[2017-09-17 22:30] LABS: MEAN CELL VOLUME 92.4 fL (81.0-99.0)
[2017-09-17] MEDS ORDERED: Bacitracin 500 Units/gm Oint Foilpak UD ONE (22:30)
[2017-09-17 22:40] LABS: ALT/SGPT 11 U/L (9-52); AST/SGOT 23 U/L (14-36); BLOOD UREA NITROGEN 25 mg/dL (7-17); CALCIUM 9.5 mg/dl (8.6-10.4); GFR AFRICAN-AMERICAN > 60; GFR NON-AFRICAN AMERICAN 60
[2017-09-17] MEDS ORDERED: Bacitracin Ointment 30 GM TUBE TOP STA (22:42)
--- NOTE | 2017-09-17 22:45 | CT ---
EXAM: CT Head Without Intravenous Contrast EXAM DATE/TIME: 09/17/2017 9:28 PM CLINICAL HISTORY: 81 years old, female; Pain; Headache and other: Fall, l occiput, ? bled TECHNIQUE: Axial computed tomography images of the head/brain without intravenous contrast. All CT scans at this facility use one or more dose reduction techniques, viz.: automated exposure control; ma/kV adjustment per patient size (including targeted exams where dose is matched to indication; i.e. head); or iterative reconstruction technique. COMPARISON: CT - HEAD W/O (CODE STROKE) 2015-06-30 16:36 FINDINGS: There is subcutaneous soft tissue swelling in the right occipital region. Aneurysm clip right suprasellar cistern similar to prior producing artifact. Atrophy and chronic small vessel ischemic disease similar to prior. No intracranial hemorrhage. No intracranial edema. Trace mucosal thickening left maxillary sinus. No depressed fractures. IMPRESSION: No acute intracranial injury.
[2017-09-17 23:26] VITALS: RESP 20
[2017-09-18 01:37] VITALS: BP 159/66; PULSE 74; TEMP 97.5; O2SAT 99
--- NOTE | 2017-09-18 13:13 | RAD ---
PROCEDURE: Left Hip X-ray Radiographs. HISTORY: fall from sitting, L hip pain COMPARISON: None. FINDINGS: BONES: No acute fracture identified. JOINTS: Moderate -severe symmetrical degenerative change both hips. SOFT TISSUES: Normal. OTHER FINDINGS: None. IMPRESSION: No acute findings related to/accounting for the clinical presentation. Additional benign and/or incidental findings described above. Concordant results with the preliminary interpretation rendered by the emergency department physician procedure.
== END 2017-09-18 01:41 | disposition home or self-care (01) ==
LOC: C.ER 20:37
DX: S01.01XA Laceration without foreign body of scalp, initial encounter (principal); S30.0XXA Contusion of lower back and pelvis, initial encounter; W05.0XXA Fall from non-moving wheelchair, initial encounter; E11.9 Type 2 diabetes mellitus without complications; E78.00 Pure hypercholesterolemia, unspecified; F03.90 Unspecified dementia, unspecified severity, without behavioral disturbance, psychotic disturbance, mood disturbance, and anxiety; G20 Parkinson's disease; I10 Essential (primary) hypertension; M06.9 Rheumatoid arthritis, unspecified; E78.5 Hyperlipidemia, unspecified

== ENCOUNTER 2018-08-16 23:59 | Inpatient (IN) | payer MEDICARE, MEDICAID ==
[2018-08-17] VITALS: BMI 28.3
--- NOTE | 2018-08-17 00:54 | C.PDOC ---
History Of Present Illness Patient presents with worsening left foot pain for the past 2 weeks. Denies trauma, fever, chills, nausea, or vomiting. Time Seen by Provider: 08/17/18 00:53 Chief Complaint (Nursing): Lower Extremity Problem/Injury History Per: Patient History/Exam Limitations: no limitations Onset/Duration Of Symptoms: Days (2 weeks) Current Symptoms Are (Timing): Still Present Severity: Moderate Pain Scale Rating Of: 4 Recent travel outside of the [place]: No Past Medical History Reviewed: Historical Data, Nursing Documentation, Vital Signs Vital Signs: Last Vital Signs Temp 98.0 F 08/17/18 00:10 Pulse 92 H 08/17/18 00:10 Resp 16 08/17/18 00:10 BP 108/56 L 08/17/18 00:10 Pulse Ox 96 08/17/18 00:10 Primary Care Provider: Yu Franklin - Medical History PMH: Arthritis (B/L KNEE R >L), 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), Dementia, Depression (sigle episode), Diabetes, HTN, Hypercholesterolemia, Hyperlipidemia, Osteoporosis, Parkinson's Disease, Rheumatoid Arthritis Denies: Chronic Kidney Disease - [facility] Procedures PLICATION OF VENA CAVA (02/28/14) Family History: States: No Known Family Hx - Social History Hx Tobacco Use: No Hx Alcohol Use: No Hx Substance Use: No - Immunization History Hx Tetanus Toxoid Vaccination: No Hx Influenza Vaccination: Yes Hx Pneumococcal Vaccination: Yes Review Of Systems Constitutional: Negative for: Fever, Chills Cardiovascular: Negative for: Chest Pain, Palpitations Respiratory: Negative for: Cough, Shortness of Breath Gastrointestinal: Negative for: Nausea, Vomiting Genitourinary: Negative for: Dysuria, Hematuria Musculoskeletal: Positive for: Foot Pain Skin: Negative for: Rash Neurological: Negative for: Weakness, Numbness Physical Exam - Physical Exam Appears: Non-toxic Skin: Warm, Dry Head: Normacephalic Oral Mucosa: Moist Neck: Trachea Midline, Supple Chest: Symmetrical, No Tenderness Cardiovascular: Rhythm Regular Respiratory: No Rales, No Rhonchi, No Wheezing Gastrointestinal/Abdominal: Soft, No Tenderness Extremity: Other (Left foot cold, 3rd digit with area of necrosis and decreased cap refill. Right foot with decreased cap refill.) Pulses: Left Dorsalis Pedis: Normal, Right Dorsalis Pedis: Normal Neurological/Psych: Oriented x3 ED Course And Treatment - Laboratory Results Result Diagrams: 08/17/18 01:26 08/17/18 01:26 O2 Sat by Pulse Oximetry: 96 (Room air) Pulse Ox Interpretation: Normal Progress Note: CT angiography of left lower extremity, blood work, and urinalysis ordered. IV fluids administered. Disposition Discussed With Dr.: Yu Franklin Comment: accepted the pt on his service and took over the care at 4:14 AM Doctor Will See Patient In The: Hospital Counseled Patient/Family Regarding: Studies Performed, Diagnosis - Disposition Disposition: HOSPITALIZED Disposition Time: 00:54 Condition: GUARDED - POA Present On Arrival: Poor Glycemic Control, Pressure Ulcer - Clinical Impression Clinical Impression: Diabetes mellitus, Cellulitis and abscess of foot, Cold left foot, Hyperglycemia - Scribe Statement The provider has reviewed the documentation as recorded by the Scribe Zenon Conklin All medical record entries made by the Scribe were at my direction and personally dictated by me. I have reviewed the chart and agree that the record accurately reflects my personal performance of the history, physical exam, medical decision making, and the department course for this patient. I have also personally directed, reviewed, and agree with the discharge instructions and disposition. Decision To Admit - Pt Status Changed To: Hospital Disposition Of: Inpatient - Admit Certification Admit to Inpatient:: After my assessment, the patient will require hospitalization for at least two midnights. This is because of the severity of symptoms shown, intensity of services needed, and/or the medical risk in this patient being treated as an outpatient. - InPatient: Physician Admission Certification: I certify that this patient requires 2 or more midnights of care for the following reason:: After my assessment, the patient will require hospitalization for at least two midnights. This is because of the severity of symptoms shown, intensity of services needed, and/or the medical risk in this patient being treated as an outpatient. - . Bed Request Type: Regular Admitting Physician: Yu Franklin Patient Diagnosis: Diabetes mellitus, Cellulitis and abscess of foot, Cold left foot, Hyperglycemia
[2018-08-17 01:29] LABS: BASO # 0.1 K/uL (0.0-0.2); BASO % 0.9 % (0.0-2.0); EOS # 0.8 K/uL (0.0-0.7); LYMPH # 4.6 K/uL (1.0-4.3); LYMPH % 35.3 % (20.0-40.0); MEAN CORPUSCULAR HEMOGLOBIN 32.6 pg (27.0-31.0); MEAN CORPUSCULAR HGB CONC 33.3 g/dL (33.0-37.0); MEAN PLATELET VOLUME 8.9 fL (7.2-11.7); MONO # 0.9 K/uL (0.0-0.8); MONO % 7.1 % (0.0-10.0); NEUT # 6.6 K/uL (1.8-7.0); NEUT % 50.7 % (50.0-75.0); NRBC % 0.1 % (0.0-2.0); RBC 3.97 Mil/uL (3.80-5.20); RED CELL DISTRIBUTION WIDTH 14.6 % (11.5-14.5)
[2018-08-17 01:38] LABS: HEMOGLOBIN 12.9 g/dL (11.0-16.0)
[2018-08-17 01:39] LABS: MEAN CELL VOLUME 97.6 fL (81.0-99.0)
[2018-08-17 01:41] LABS: BLOOD UREA NITROGEN 27 mg/dL (7-17); GFR NON-AFRICAN AMERICAN 53
[2018-08-17 01:42] LABS: ALB/GLOB RATIO 1.5 (1.0-2.1); ALBUMIN 4.4 g/dL (3.5-5.0); ALT/SGPT 24 U/L (9-52); AST/SGOT 22 U/L (14-36); CALCIUM 9.7 mg/dl (8.6-10.4)
[2018-08-17 01:45] LABS: VENOUS BLOOD GAS BASE EXCESS -0.2 mmol/L (0.0-2.0); VENOUS BLOOD GAS PCO2 41 mmHg (40-60); VENOUS BLOOD GAS PO2 66 mm/Hg (30-55); VENOUS BLOOD PH 7.39 (7.32-7.43)
[2018-08-17] MEDS ORDERED: Sodium Chloride 0.9% 1,000 ML IV ONE (01:46)
[2018-08-17] MEDS ORDERED: Sodium Chloride 0.9% 1,000 ML ONE (01:54)
[2018-08-17] MEDS ORDERED: Iohexol 350mg/ml 100 ML ONE (03:16)
[2018-08-17] MEDS ORDERED: Vancomycin 1 GM 1 GM/250 ML BAG IVPB STA (04:12)
[2018-08-17] MEDS ORDERED: Piperacillin/Tazobact 3.375 gm 100 ML IVPB STA (04:13)
[2018-08-17] MEDS ORDERED: Piperacillin/Tazobact 3.375 gm 100 ML IVPB ONE (04:31)
[2018-08-17] MEDS ORDERED: Vancomycin 1 GM 1 GM/250 ML BAG IVPB ONE (04:55)
--- NOTE | 2018-08-17 05:42 | CP.PCM.CON ---
History of Present Illness - History of Present Illness History of Present Illness: Vascular surgery consult note for Dr. Frederick Velasquez, PGY-2 Pt seen/examined at bedside. Welsh interpretor [id number] Kinsey. Pt with dementia, poor historian. 82F w/PMH sig for consulted for decreased pulses of Left foot. Pt reports worsening pain of L foot x 2 weeks with noted coolness of L foot >R x 1 day. Pt brought in by daughter for evaluation of complaints of Left foot pain, mostly with movement or pressure to area, intermittent, moderate, non radiating. Admits to dyspnea on speaking, constipation, wearing shoes that are too small for her feet. Denies F & C, N & V, SOB, CP, abdominal pain, cough, rhinorrhea, numbness or tingling of feet, trauma to feet. In ED- leukocytosis of 13. Lactate of 2.4. PMH: Rheumatoid arthritis CVA, dementia, depression, DM, HTN, HLD, Osteoporosis, Parkinson's, RA, wheelchair bound, hx of falls PSH: IVC filter, hysterectomy, umbilical hernia repair All: NKDA SH: Denies tobacco, ETOH or illicit drug use FH: Father had CVA PMD: A clinic Review of Systems - Review of Systems Systems not reviewed;Unavailable: Dementia - Constitutional Constitutional: absent: Chills, Fever - EENT Nose/Mouth/Throat: absent: Sore Throat - Cardiovascular Cardiovascular: absent: Chest Pain - Respiratory Respiratory: Dyspnea on Exertion. absent: Cough - Gastrointestinal Gastrointestinal: Constipation. absent: Abdominal Pain, Nausea, Vomiting - Genitourinary Genitourinary: absent: Change in Urinary Stream - Musculoskeletal Musculoskeletal: Joint Swelling (chronic). absent: Numbness, Tingling - Neurological Neurological: Weakness. 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 - INTEGUMENTARY Hx Dermatological Problems: No - MUSCULOSKELETAL/RHEUMATOLOGICAL Hx Arthritis: Yes (B/L KNEE R >L) Hx Osteoporosis: Yes Hx Rheumatoid Arthritis: Yes - GASTROINTESTINAL Hx Gastrointestinal Disorders: Yes Hx Constipation: Yes Hx Gastroesophageal Reflux: Yes - GENITOURINARY/GYNECOLOGICAL Hx Genitourinary Disorders: No - PSYCHIATRIC Hx Depression: Yes (sigle episode) Hx Substance Use: No - SURGICAL HISTORY Hx Surgeries: Yes Hx Vascular Surgery: Yes (brain aneurysm/ barricade coil system) Other/Comment: brain aneurysm/ barricade coil system - ANESTHESIA Hx Anesthesia: Yes Hx Anesthesia Reactions: No Hx Malignant Hyperthermia: No Meds Allergies/Adverse Reactions: Allergies Allergy/AdvReac Type Severity Reaction Status Date / Time No Known Allergies Allergy Verified 08/17/18 00:14 - Medications Medications: Current Medications Sodium Chloride (Sodium Chloride 0.9%) 1,000 mls @ 100 mls/hr IV .Q10H ONE Stop: 08/17/18 11:45 Last Admin: 08/17/18 01:47 Dose: 100 mls/hr Physical Exam - Constitutional Appears: Non-toxic, No Acute Distress - Head Exam Head Exam: ATRAUMATIC, NORMAL INSPECTION, NORMOCEPHALIC - Eye Exam Eye Exam: EOMI, Normal appearance - ENT Exam ENT Exam: Mucous Membranes Moist, Normal Exam - Neck Exam Neck exam: Positive for: Normal Inspection - Respiratory Exam Respiratory Exam: NORMAL BREATHING PATTERN - Cardiovascular Exam Cardiovascular Exam: REGULAR RHYTHM, +S1, +S2 - GI/Abdominal Exam GI & Abdominal Exam: Soft. absent: Distended (obese), Firm, Guarding, Tenderness Additional comments: well healed lower abdominal transverse scar - Extremities Exam Extremities exam: Negative for: pedal pulses present Additional comments: Left distal foot with coolness vs. R. Pain on palpation of left foot. Left 4th toe with medial aspect ecchymoses at distal aspect. Intact sensation and ROM. No palpable DP or PT bilaterally. - Neurological Exam Neurological exam: Alert - Psychiatric Exam Psychiatric exam: Normal Affect, Normal Mood - Skin Skin Exam: Intact Results - Vital Signs Recent Vital Signs: Last Vital Signs Temp 98.0 F 08/17/18 00:10 Pulse 94 H 08/17/18 04:41 Resp 20 08/17/18 04:41 BP 125/56 L 08/17/18 04:41 Pulse Ox 96 08/17/18 05:38 - Labs Result Diagrams: 08/17/18 01:26 08/17/18 01:26 Labs: Laboratory Results - last 24 hr 08/17/18 08/17/18 08/17/18 01:22 01:26 01:26 WBC 13.0 H RBC 3.97 Hgb 12.9 D Hct 38.8 MCV 97.6 D MCH 32.6 H MCHC 33.3 RDW 14.6 H Plt Count 262 MPV 8.9 Neut % (Auto) 50.7 Lymph % (Auto) 35.3 Travis % (Auto) 7.1 Eos % (Auto) 6.0 H Baso % (Auto) 0.9 Neut # (Auto) 6.6 Lymph # (Auto) 4.6 H Travis # (Auto) 0.9 H Eos # (Auto) 0.8 H Baso # (Auto) 0.1 pO2 66 H VBG pH 7.39 VBG pCO2 41 VBG HCO3 24.6 VBG Total CO2 26.1 VBG O2 Sat (Calc) 94.9 H VBG Base Excess -0.2 L VBG Potassium 3.2 L Sodium 142.0 140 Chloride 105.0 97 L Glucose 161 H Lactate 2.4 H Potassium 3.9 Carbon Dioxide 29 Anion Gap 19 BUN 27 H Creatinine 1.0 Est GFR ( Amer) > 60 Est GFR (Non-Af Amer) 53 Random Glucose 174 H D Calcium 9.7 Magnesium 1.5 L Total Bilirubin 0.4 AST 22 ALT 24 Alkaline Phosphatase 136 H Total Protein 7.3 Albumin 4.4 Globulin 3.0 Albumin/Globulin Ratio 1.5 Venous Blood Potassium 3.2 L Assessment & Plan - Assessment and Plan (Free Text) Assessment: 82F w/cold, painful left foot x 1 day Plan: FU CTA official read Pain control Abx Recommend ABIs Further recs pending attending evaluation Will DW Dr. Michel Velasquez, PGY-2 - Date & Time Date: 08/17/18 Time: 06:21
[2018-08-17] MEDS ORDERED: Heparin25000 units/250ml 1/2NS 25,000 UNITS/250 ML BAG IV ONE (05:47)
[2018-08-17 06:20] LABS: PROTHROMBIN TIME 10.6 SECONDS (9.7-12.2)
[2018-08-17 09:07] LABS: SQUAMOUS EPITHIAL 3 /hpf (0-5); URINE BACTERIA OCC (<OCC); URINE BILIRUBIN NEGATIVE (NEGATIVE); URINE BLOOD NEGATIVE (NEGATIVE); URINE CLARITY Hazy (Clear); URINE COLOR Yellow (YELLOW); URINE GLUCOSE (UA) NORMAL (Normal); URINE LEUKOCYTE ESTERASE 3+ Leu/uL (Negative); URINE PROTEIN NEGATIVE (NEGATIVE); URINE UROBILINOGEN NORMAL mg/dL (0.2-1.0); WBC CLUMPS OCC /hpf
--- NOTE | 2018-08-17 11:51 | CT ---
Date of service: 08/17/2018 PROCEDURE: CT Angiography Abdomen, Pelvis and Lower Extremity with Contrast HISTORY: Left foot, peripheral arterial disease COMPARISON: None available. TECHNIQUE: Technique: CT angiography of the abdomen, pelvis and bilateral lower extremities performed in the arterial phase of enhancement. Coronal and sagittal reformats, and well as rotating MIP images of the vessels generated at the workstation. Intravenous contrast dose: 150 milliliters Visipaque 320 Radiation dose: Total exam DLP = 2011.74 mGy-cm. This CT exam was performed using one or more of the following dose reduction techniques: Automated exposure control, adjustment of the mA and/or kV according to patient size, and/or use of iterative reconstruction technique. FINDINGS: CT ANGIOGRAPHY: ABDOMINAL AORTA:: Moderate plaque in the abdominal aorta without significant stenosis or aneurysm. MAJOR AORTIC BRANCHES: Celiac [place]: Unremarkable. Superior mesenteric artery: Unremarkable. Inferior mesenteric artery: Unremarkable. Renal arteries: Unremarkable. PELVIC ARTERIES: Right Common Iliac: Unremarkable. Right External Iliac: Unremarkable. Right Internal Iliac: Unremarkable. Left Common Iliac: Unremarkable. Left External Iliac: Unremarkable. Left Internal Iliac: Unremarkable. RIGHT LOWER EXTREMITY ARTERIES: Right Common Femoral: Unremarkable. Right Superficial Femoral: Moderate plaque in the SFA without significant stenosis. Right Profunda Femoris: Unremarkable. Right Popliteal:Mild popliteal artery stenosis. Right Anterior Tibial: Calcific plaque in the proximal segment but otherwise anterior tibial artery is patent with no significant stenosis. Right Tibioperoneal Trunk: Unremarkable. Right Posterior Tibial: Multiple areas of moderate stenosis throughout the posterior tibial artery with possible severe stenosis or occlusion of the distal posterior tibial artery. Right Peroneal: Multiple areas of tandem [id number] stenosis throughout the peroneal artery. Possible severe stenosis distal peroneal artery. Right dorsalis pedis : Unremarkable. LEFT LOWER EXTREMITY ARTERIES: Left Common Femoral: Unremarkable. Left Superficial Femoral: Moderate plaque in the SFA with area of mild stenosis in the mid SFA. Left Profunda Femoris: Unremarkable. Left Popliteal: Moderate stenosis of popliteal artery Left Anterior Tibial: Unremarkable. Left Tibioperoneal Trunk: Unremarkable. Left Posterior Tibial: Limited evaluation secondary to calcific plaque. Possible moderate stenosis in the mid and distal segments. Left Peroneal: Possible multiple areas of mild stenosis throughout the peroneal artery. Calcific plaque limits evaluation. Left Dorsalis pedis: Unremarkable. NON-ANGIOGRAPHIC ASPECT OF THE EXAM: LOWER THORAX: Unremarkable. LIVER: Recent induration of the liver with 2 areas of focal fatty sparing. GALLBLADDER AND BILE DUCTS: Unremarkable. PANCREAS: Unremarkable. No gross lesion or ductal dilatation. SPLEEN: Unremarkable. ADRENALS: Unremarkable. No mass. KIDNEYS AND URETERS: Unremarkable. No hydronephrosis. No solid mass. STOMACH AND BOWEL: Diffuse diverticulosis without acute diverticulitis. No obstruction or mural thickening. APPENDIX: PERITONEUM: Unremarkable. No free fluid. No free air. LYMPH NODES: Unremarkable. No enlarged lymph nodes. BLADDER: Distended but otherwise unremarkable. REPRODUCTIVE: BONES: Severe degenerative changes in the axial spine. OTHER FINDINGS: None. IMPRESSION: CT ANGIOGRAM ABDOMEN/PELVIS: 1. Essentially unremarkable CT angiogram of the abdomen pelvis. LEFT LOWER EXTREMITY CT ANGIOGRAM: 1. The common femoral artery, and profunda femoral artery normal. 2. There is moderate plaque in the SFA with area of mild stenosis in the mid SFA. 3. There is moderate stenosis of popliteal artery. 4. Runoff shows a patent anterior tibial artery. The posterior tibial artery and peroneal artery arteries have multiple areas of moderate stenosis in the mid and distal segments. RIGHT LOWER EXTREMITY CT ANGIOGRAM: 1. The common femoral artery, and profunda femoral artery normal. 2. There is mild plaque in the SFA without significant stenosis. 3. Popliteal artery has mild stenosis. 4. Runoff shows a patent anterior tibial artery. The posterior tibial artery and peroneal artery have multiple areas of moderate stenosis and possible severe stenosis distal posterior tibial artery
[2018-08-17] MEDS ORDERED: Heparin25000 units/250ml 1/2NS 25,000 UNITS/250 ML BAG IV PRN (16:18)
--- NOTE | 2018-08-17 17:47 | CP.PCM.CON ---
History of Present Illness - History of Present Illness History of Present Illness: 82F c/o worsening pain of L foot x 2 weeks with noted coolness of L foot Referred for ID eval of possible coexisting infection/ sepsis with elevated WBC and lactate levels PMH: Rheumatoid arthritis CVA, dementia, depression, DM, HTN, HLD, Osteoporosis, Parkinson's, RA, wheelchair bound, hx of falls PSH: IVC filter, hysterectomy, umbilical hernia repair All: NKDA SH: Denies tobacco, ETOH or illicit drug use FH: Father had CVA Review of Systems - Review of Systems Systems not reviewed;Unavailable: Altered Mental Status All systems: reviewed and no additional remarkable complaints except - Constitutional Constitutional: As Per HPI - EENT Eyes: absent: As Per HPI, Blind Spots, Blurred Vision, Change in Vision, Decreased Night Vision, Diplopia, Discharge, Dry Eye, Exophthalmos, Floaters, Irritation, Itchy Eyes, Loss of Peripheral Vision, Pain, Photophobia, Requires Corrective Lenses, Sees Flashes, Spots in Vision, Tunnel Vision, Other Visual Disturbances, Loss of Vision, Other Ears: absent: As Per HPI, Decreased Hearing, Ear Discharge, Ear Pain, Tinnitus, Abnormal Hearing, Disequilibrium, Dizziness, Other Nose/Mouth/Throat: absent: As Per HPI, Epistaxis, Nasal Congestion, Nasal Discharge, Nasal Obstruction, Nasal Trauma, Nose Pain, Post Nasal Drip, Sinus Pain, Sinus Pressure, Bleeding Gums, Change in Voice, Dental Pain, Dry Mouth, Dysphagia, Halitosis, Hoarsness, Lip Swelling, Mouth Lesions, Mouth Pain, Odynophagia, Sore Throat, Throat Swelling, Tongue Swelling, Facial Pain, Neck Pain, Neck Mass, Other - Breasts Breasts: absent: As Per HPI, Change in Shape, Mass, Pain, Nipple Discharge, Nipple Inversion, Skin Changes, Swelling, Other - Cardiovascular Cardiovascular: absent: As Per HPI, Acrocyanosis, Chest Pain, Chest Pain at Rest, Chest Pain with Activity, Claudication, Diaphoresis, Dyspnea, Dyspnea on Exertion, Edema, Irregular Heart Rhythm, Pain Radiating to Arm/Neck/Jaw, Leg Edema, Leg Ulcers, Lightheadedness, Orthopnea, Palpitations, Paroxysmal Nocturnal Dyspnea, Pedal Edema, Radiating Pain, Rapid Heart Rate, Slow Heart Rate, Syncope, Other - Respiratory Respiratory: absent: As Per HPI, Cough, Dyspnea, Hemoptysis, Dyspnea on Exertion, Wheezing, Snoring, Stridor, Pain on Inspiration, Chest Congestion, Excessive Mucous Production, Change in Mucous Color, Pain with Coughing, Other - Gastrointestinal Gastrointestinal: absent: As Per HPI, Abdominal Pain, Belching, Bloating, Change in Bowel Habits, Change in Stool Character, Coffee Ground Emesis, Constipation, Cramping, Diarrhea, Dyspepsia, Dysphagia, Early Satiety, Excessive Flatus, Fecal Incontinence, Heartburn, Hematemesis, Hematochezia, Loose Stools, Melena, Nausea, Odynophagia, Temesmus, Vomiting, Other - Genitourinary Genitourinary: absent: As Per HPI, Change in Urinary Stream, Difficulty Urinating, Dysuria, Flank Pain, Hematuria, Pyuria, Nocturia, Urinary Incontinence, Urinary Frequency, Urinary Hesitance, Urinary Urgency, Voiding Freq/Small Amts, Freq UTI, Hx Renal/Bladder Calculi, Hx /Renal Surgery, Blad guerita Distension, Other - Reproductive: Female Reproductive:Female: absent: As Per HPI, Amenorrhea, Amenorrhea/ Control, Currently Menstual, Cycle <21 Days, Cycle >35 Days, Cycle Variable, Menses 1-7 Days, Menses >/= 8 Days, Menses Variable, Cycle > 4 Weeks Between, No Menses for 6 Months, Heavy Menses, Light Menses, Normal Menses, Spotting Between Cycles, S/P Hysterectomy, Menopausal, Post Menopausal, Premenarche, Abnormal Vaginal Bleeding, Dysmenorrhea, Dyspareunia, Genital Lesions, Genital Pruritis, Pelvic Pain, Prolapse Symptoms, Sexual Dysfunction, Vaginal Discharge, Vaginal Dryness, Vaginal Odor, Vaginal Pruritis, Other - Menstruation Menstruation: absent: As Per HPI, Amenorrhea, Amenorrhea/ Control, Currently Menstual, Cycle <21 Days, Cycle >35 Days, Cycle Variable, Menses 1-7 Days, Menses >/= 8 Days, Menses Variable, Cycle > 4 Weeks Between, No Menses for 6 Months, Heavy Menses, Light Menses, Normal Menses, Spotting Between Cycles, S/P Hysterectomy, Menopausal, Post Menopausal, Premenarche, Abnormal Vaginal Bleeding, Dysmenorrhea, Other - Musculoskeletal Musculoskeletal: As Per HPI - Integumentary Integumentary: As Per HPI, Skin Pain - Neurological Neurological: absent: As Per HPI, Abnormal Gait, Abnormal Hearing, Abnormal Movements, Abnormal Speech, Behavioral Changes, Burning Sensations, Confusion, Convulsions, Disequilibrium, Dizziness, Numbness, Focal Weakness, Frequent Falls, Headaches, Lack of Coordination, Loss of Vision, Memory Loss, Paresthesias, Radicular Pain, Restless Legs, Sensory Deficit, Syncope, Tingling, Tremor, Vertigo, Weakness, Other Visual Disturbances, Other - Psychiatric Psychiatric: absent: As Per HPI, Abnormal Sleep Pattern, Anhedonia, Anxiety, Auditory Hallucinations, Behavioral Changes, Change in Appetite, Change in Libido, Confusion, Depression, Difficulty Concentrating, Hallucinations, Homi cidal Ideation, Hopelessness, Irritability, Memory Loss, Mood Swings, Panic Attacks, Paranoia, Suicidal Ideation, Visual Hallucinations, Tactile Hallucinations, Other - Endocrine Endocrine: absent: As Per HPI, Change in Body Appearance, Change in Libido, Cold Intolorance, Deepening of Voice, Excessive Sweating, Fatigue, Flushing, Heat Intolorance, Increase in Ring/Shoe/Hat Size, Palpitations, Polydipsia, Polyphagia, Polyuria, Other - Hematologic/Lymphatic Hematologic: absent: As Per HPI, Easy Bleeding, Easy Bruising, Lymphadenopathy, Other 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 - INTEGUMENTARY Hx Dermatological Problems: No - MUSCULOSKELETAL/RHEUMATOLOGICAL Hx Arthritis: Yes (B/L KNEE R >L) Hx Falls: Yes Hx Osteoporosis: Yes Hx Rheumatoid Arthritis: Yes - GASTROINTESTINAL Hx Gastrointestinal Disorders: Yes Hx Constipation: Yes Hx Gastroesophageal Reflux: Yes - GENITOURINARY/GYNECOLOGICAL Hx Genitourinary Disorders: No - PSYCHIATRIC Hx Depression: Yes (sigle episode) Hx Substance Use: No - SURGICAL HISTORY Hx Surgeries: Yes Hx Vascular Surgery: Yes (brain aneurysm/ barricade coil system) Other/Comment: brain aneurysm/ barricade coil system - ANESTHESIA Hx Anesthesia: Yes Hx Anesthesia Reactions: No Hx Malignant Hyperthermia: No Meds Allergies/Adverse Reactions: Allergies Allergy/AdvReac Type Severity Reaction Status Date / Time No Known Allergies Allergy Verified 08/17/18 00:14 - Medications Medications: Current Medications Acetaminophen (Tylenol 325mg Tab) 650 mg PO Q4 PRN PRN Reason: Fever >100.4 F Aspirin (Aspirin) 325 mg PO DAILY [facility] Carbidopa/Levodopa (Sinemet 10/100) 1 tab PO BID [facility] Digoxin (Digoxin) 0.125 mg PO DAILY@1800 [facility] Home Med (Acarbose [Precose 50 Mg Tab]) 50 mg PO TID [facility] Heparin Sodium/Sodium Chloride (Heparin 12849 Units/250ml 1/2 Normal Saline) 25,000 units in 250 mls @ 7.53 mls/hr IV .Q24H PRN; Protocol PRN Reason: ADJUST RATE PER PROTOCOL Piperacillin Sod/Tazobactam Sod (Zosyn 3.375 Gm Iv Premix) 3.375 gm in 50 mls @ 100 mls/hr IVPB Q8H [facility]; Protocol Vancomycin/Sodium Chloride (Vancomycin 1 Gm/Ns 200 Ml) 1 gm in 200 mls @ 133 mls/hr IVPB Q24H [facility]; Protocol Stop: 08/23/18 05:01 Insulin Aspart (Novolog) 0 unit SC ACHS [facility]; Protocol Insulin Detemir (Levemir) 26 unit SC Q12 [facility] Metformin HCl (Glucophage Xr) 500 mg PO BID [facility] Metoprolol Tartrate (Lopressor) 25 mg PO BID [facility] Morphine Sulfate (Morphine) 1 mg IVP Q4 PRN PRN Reason: Pain, Mild (1-3) Nateglinide (Starlix) 120 mg PO TID [facility] Rosuvastatin Calcium (Crestor) 20 mg PO HS [facility] Sennosides (Senokot Tab) 1 mg PO HS [facility] Sitagliptin Phosphate (Januvia) 25 mg PO DAILY [facility] Physical Exam - Constitutional Appears: Non-toxic, Confused, Chronically Ill - Head Exam Head Exam: ATRAUMATIC, NORMAL INSPECTION, NORMOCEPHALIC - Eye Exam Eye Exam: EOMI, Normal appearance, PERRL Pupil Exam: NORMAL ACCOMODATION, PERRL - ENT Exam ENT Exam: Mucous Membranes Moist, Normal Exam - Neck Exam Neck exam: Positive for: Normal Inspection. Negative for: Lymphadenopathy, Thyromegaly - Respiratory Exam Respiratory Exam: Decreased Breath Sounds, Clear to Auscultation Bilateral, Prolonged Expiratory Phase - Cardiovascular Exam Cardiovascular Exam: REGULAR RHYTHM, +S1, +S2 - GI/Abdominal Exam GI & Abdominal Exam: Diminished Bowel Sounds, Distended, Soft. absent: Tenderness - Rectal Exam Rectal Exam: Deferred - Exam Exam: NORMAL INSPECTION External exam: Ecchymosis, Erythema, Lacerations, Lesions, NORMAL EXTERNAL EXAM, Swelling - Extremities Exam Extremities exam: Positive for: joint swelling, pedal edema, tenderness. Negative for: normal capillary refill, normal inspection, pedal pulses present Additional comments: severe RA deformities of hands/ feet cool pulseless left foot with rubor - Back Exam Back exam: NORMAL INSPECTION - Neurological Exam Neurological exam: Alert, CN II-XII Intact, Normal Gait, Oriented x3, Reflexes Normal - Psychiatric Exam Psychiatric exam: Normal Affect, Normal Mood - Skin Skin Exam: Dry, Intact Results - Vital Signs Recent Vital Signs: Last Vital Signs Temp 98.1 F 08/17/18 14:01 Pulse 92 H 08/17/18 14:01 Resp 18 08/17/18 14:01 BP 141/84 08/17/18 14:01 Pulse Ox 96 08/17/18 14:01 - Labs Result Diagrams: 08/17/18 01:26 08/17/18 01:26 Labs: Laboratory Results - last 24 hr 08/17/18 08/17/18 08/17/18 01:22 01:26 01:26 WBC 13.0 H RBC 3.97 Hgb 12.9 D Hct 38.8 MCV 97.6 D MCH 32.6 H MCHC 33.3 RDW 14.6 H Plt Count 262 MPV 8.9 Neut % (Auto) 50.7 Lymph % (Auto) 35.3 [place] % (Auto) 7.1 Eos % (Auto) 6.0 H Baso % (Auto) 0.9 Neut # (Auto) 6.6 Lymph # (Auto) 4.6 H [place] # (Auto) 0.9 H Eos # (Auto) 0.8 H Baso # (Auto) 0.1 PT INR APTT pO2 66 H VBG pH 7.39 VBG pCO2 41 VBG HCO3 24.6 VBG Total CO2 26.1 VBG O2 Sat (Calc) 94.9 H VBG Base Excess -0.2 L VBG Potassium 3.2 L Sodium 142.0 140 Chloride 105.0 97 L Glucose 161 H Lactate 2.4 H Potassium 3.9 Carbon Dioxide 29 Anion Gap 19 BUN 27 H Creatinine 1.0 Est GFR ( Amer) > 60 Est GFR (Non-Af Amer) 53 POC Glucose (mg/dL) Random Glucose 174 H D Calcium 9.7 Magnesium 1.5 L Total Bilirubin 0.4 AST 22 ALT 24 Alkaline Phosphatase 136 H Total Protein 7.3 Albumin 4.4 Globulin 3.0 Albumin/Globulin Ratio 1.5 Venous Blood Potassium 3.2 L Urine Color Urine Clarity Urine pH Ur Specific [place] Urine Protein Urine Glucose (UA) Urine Ketones Urine Blood Urine Nitrate Urine Bilirubin Urine Urobilinogen Ur Leukocyte Esterase Urine WBC (Auto) Urine RBC (Auto) Urine WBC Clumps (Auto) Ur Squamous Epith Cells Urine Bacteria 08/17/18 08/17/18 08/17/18 06:09 07:53 08:34 WBC RBC Hgb Hct MCV MCH MCHC RDW Plt Count MPV Neut % (Auto) Lymph % (Auto) [place] % (Auto) Eos % (Auto) Baso % (Auto) Neut # (Auto) Lymph # (Auto) [place] # (Auto) Eos # (Auto) Baso # (Auto) PT 10.6 INR 1.0 APTT 32.0 pO2 VBG pH VBG pCO2 VBG HCO3 VBG Total CO2 VBG O2 Sat (Calc) VBG Base Excess VBG Potassium Sodium Chloride Glucose Lactate Potassium Carbon Dioxide Anion Gap BUN Creatinine Est GFR ( Amer) Est GFR (Non-Af Amer) POC Glucose (mg/dL) 178 H Random Glucose Calcium Magnesium Total Bilirubin AST ALT Alkaline Phosphatase Total Protein Albumin Globulin Albumin/Globulin Ratio Venous Blood Potassium Urine Color Yellow Urine Clarity Hazy Urine pH 5.0 Ur Specific [place] 1.025 Urine Protein Negative Urine Glucose (UA) Normal Urine Ketones Negative Urine Blood Negative Urine Nitrate Positive H Urine Bilirubin Negative Urine Urobilinogen Normal Ur Leukocyte Esterase 3+ H Urine WBC (Auto) 926 H Urine RBC (Auto) 12 H Urine WBC Clumps (Auto) Occ H Ur Squamous Epith Cells 3 Urine Bacteria Occ H 08/17/18 08/17/18 08/17/18 11:57 16:11 16:31 WBC RBC Hgb Hct MCV MCH MCHC RDW Plt Count MPV Neut % (Auto) Lymph % (Auto) [place] % (Auto) Eos % (Auto) Baso % (Auto) Neut # (Auto) Lymph # (Auto) [place] # (Auto) Eos # (Auto) Baso # (Auto) PT INR APTT 46.0 H D pO2 VBG pH VBG pCO2 VBG HCO3 VBG Total CO2 VBG O2 Sat (Calc) VBG Base Excess VBG Potassium Sodium Chloride Glucose Lactate Potassium Carbon Dioxide Anion Gap BUN Creatinine Est GFR ( Amer) Est GFR (Non-Af Amer) POC Glucose (mg/dL) 205 H 289 H Random Glucose Calcium Magnesium Total Bilirubin AST ALT Alkaline Phosphatase Total Protein Albumin Globulin Albumin/Globulin Ratio Venous Blood Potassium Urine Color Urine Clarity Urine pH Ur Specific [place] Urine Protein Urine Glucose (UA) Urine Ketones Urine Blood Urine Nitrate Urine Bilirubin Urine Urobilinogen Ur Leukocyte Esterase Urine WBC (Auto) Urine RBC (Auto) Urine WBC Clumps (Auto) Ur Squamous Epith Cells Urine Bacteria Assessment & Plan (1) Cellulitis and abscess of foot Status: Acute (2) Cold left foot Status: Acute (3) Diabetes mellitus Status: Chronic - Assessment and Plan (Free Text) Assessment: cold pulseless left foot in setting of RA r/o vasculitic component consider Rheum eval Vascular on Board IV antibiotics started after cultures prognosis for limb salvage poor
[2018-08-17] MEDS: Digoxin 125 mcg (0.125 mg) Tab PO SCH (17:55)
[2018-08-17] MEDS: Piperacill/Tazo 3.375gm in Dex 3.375 GM/50 ML BAG IVPB SCH (17:56)
[2018-08-17] MEDS ORDERED: ACARBOSE 50 MG PO SCH (18:00)
--- NOTE | 2018-08-17 20:17 | CP.PCM.HP ---
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 - INTEGUMENTARY Hx Dermatological Problems: No - MUSCULOSKELETAL/RHEUMATOLOGICAL Hx Arthritis: Yes (B/L KNEE R >L) Hx Falls: Yes Hx Osteoporosis: Yes Hx Rheumatoid Arthritis: Yes - GASTROINTESTINAL Hx Gastrointestinal Disorders: Yes Hx Constipation: Yes Hx Gastroesophageal Reflux: Yes - GENITOURINARY/GYNECOLOGICAL Hx Genitourinary Disorders: No - PSYCHIATRIC Hx Depression: Yes (sigle episode) Hx Substance Use: No - SURGICAL HISTORY Hx Surgeries: Yes Hx Vascular Surgery: Yes (brain aneurysm/ barricade coil system) Other/Comment: brain aneurysm/ barricade coil system - ANESTHESIA Hx Anesthesia: Yes Hx Anesthesia Reactions: No Hx Malignant Hyperthermia: No Meds Allergies/Adverse Reactions: Allergies Allergy/AdvReac Type Severity Reaction Status Date / Time No Known Allergies Allergy Verified 08/17/18 00:14 Physical Exam - Constitutional Appears: Well - Head Exam Head Exam: ATRAUMATIC, NORMAL INSPECTION, NORMOCEPHALIC - Eye Exam Eye Exam: EOMI, Normal appearance, PERRL Pupil Exam: NORMAL ACCOMODATION, PERRL - ENT Exam ENT Exam: Mucous Membranes Moist, Normal Exam - Neck Exam Neck exam: Positive for: Normal Inspection - Respiratory Exam Respiratory Exam: Decreased Breath Sounds - Cardiovascular Exam Cardiovascular Exam: REGULAR RHYTHM, +S1, +S2 - GI/Abdominal Exam GI & Abdominal Exam: Diminished Bowel Sounds, Soft - Rectal Exam Rectal Exam: Deferred - Neurological Exam Neurological exam: Oriented x3 Results - Vital Signs Recent Vital Signs: Last Vital Signs Temp 97.9 F 08/17/18 16:39 Pulse 97 H 08/17/18 16:39 Resp 18 08/17/18 16:39 BP 148/89 08/17/18 17:54 Pulse Ox 97 08/17/18 16:39 - Labs Result Diagrams: 08/17/18 01:26 05/03/19 01:26 Labs: Laboratory Results - last 24 hr 08/17/18 08/17/18 08/17/18 01:22 01:26 01:26 WBC 13.0 H RBC 3.97 Hgb 12.9 D Hct 38.8 MCV 97.6 D MCH 32.6 H MCHC 33.3 RDW 14.6 H Plt Count 262 MPV 8.9 Neut % (Auto) 50.7 Lymph % (Auto) 35.3 [place] % (Auto) 7.1 Eos % (Auto) 6.0 H Baso % (Auto) 0.9 Neut # (Auto) 6.6 Lymph # (Auto) 4.6 H [place] # (Auto) 0.9 H Eos # (Auto) 0.8 H Baso # (Auto) 0.1 PT INR APTT pO2 66 H VBG pH 7.39 VBG pCO2 41 VBG HCO3 24.6 VBG Total CO2 26.1 VBG O2 Sat (Calc) 94.9 H VBG Base Excess -0.2 L VBG Potassium 3.2 L Sodium 142.0 140 Chloride 105.0 97 L Glucose 161 H Lactate 2.4 H Potassium 3.9 Carbon Dioxide 29 Anion Gap 19 BUN 27 H Creatinine 1.0 Est GFR ( Amer) > 60 Est GFR (Non-Af Amer) 53 POC Glucose (mg/dL) Random Glucose 174 H D Calcium 9.7 Magnesium 1.5 L Total Bilirubin 0.4 AST 22 ALT 24 Alkaline Phosphatase 136 H Total Protein 7.3 Albumin 4.4 Globulin 3.0 Albumin/Globulin Ratio 1.5 Venous Blood Potassium 3.2 L Urine Color Urine Clarity Urine pH Ur Specific [place] Urine Protein Urine Glucose (UA) Urine Ketones Urine Blood Urine Nitrate Urine Bilirubin Urine Urobilinogen Ur Leukocyte Esterase Urine WBC (Auto) Urine RBC (Auto) Urine WBC Clumps (Auto) Ur Squamous Epith Cells Urine Bacteria 08/17/18 08/17/18 08/17/18 06:09 07:53 08:34 WBC RBC Hgb Hct MCV MCH MCHC RDW Plt Count MPV Neut % (Auto) Lymph % (Auto) [place] % (Auto) Eos % (Auto) Baso % (Auto) Neut # (Auto) Lymph # (Auto) [place] # (Auto) Eos # (Auto) Baso # (Auto) PT 10.6 INR 1.0 APTT 32.0 pO2 VBG pH VBG pCO2 VBG HCO3 VBG Total CO2 VBG O2 Sat (Calc) VBG Base Excess VBG Potassium Sodium Chloride Glucose Lactate Potassium Carbon Dioxide Anion Gap BUN Creatinine Est GFR ( Amer) Est GFR (Non-Af Amer) POC Glucose (mg/dL) 178 H Random Glucose Calcium Magnesium Total Bilirubin AST ALT Alkaline Phosphatase Total Protein Albumin Globulin Albumin/Globulin Ratio Venous Blood Potassium Urine Color Yellow Urine Clarity Hazy Urine pH 5.0 Ur Specific [place] 1.025 Urine Protein Negative Urine Glucose (UA) Normal Urine Ketones Negative Urine Blood Negative Urine Nitrate Positive H Urine Bilirubin Negative Urine Urobilinogen Normal Ur Leukocyte Esterase 3+ H Urine WBC (Auto) 926 H Urine RBC (Auto) 12 H Urine WBC Clumps (Auto) Occ H Ur Squamous Epith Cells 3 Urine Bacteria Occ H 08/17/18 08/17/18 08/17/18 11:57 16:11 16:31 WBC RBC Hgb Hct MCV MCH MCHC RDW Plt Count MPV Neut % (Auto) Lymph % (Auto) [place] % (Auto) Eos % (Auto) Baso % (Auto) Neut # (Auto) Lymph # (Auto) [place] # (Auto) Eos # (Auto) Baso # (Auto) PT INR APTT 46.0 H D pO2 VBG pH VBG pCO2 VBG HCO3 VBG Total CO2 VBG O2 Sat (Calc) VBG Base Excess VBG Potassium Sodium Chloride Glucose Lactate Potassium Carbon Dioxide Anion Gap BUN Creatinine Est GFR ( Amer) Est GFR (Non-Af Amer) POC Glucose (mg/dL) 205 H 289 H Random Glucose Calcium Magnesium Total Bilirubin AST ALT Alkaline Phosphatase Total Protein Albumin Globulin Albumin/Globulin Ratio Venous Blood Potassium Urine Color Urine Clarity Urine pH Ur Specific [place] Urine Protein Urine Glucose (UA) Urine Ketones Urine Blood Urine Nitrate Urine Bilirubin Urine Urobilinogen Ur Leukocyte Esterase Urine WBC (Auto) Urine RBC (Auto) Urine WBC Clumps (Auto) Ur Squamous Epith Cells Urine Bacteria
[2018-08-17] MEDS: Insulin Detemir 100 units/ml Vial (Levemir) SC SCH (21:57)
[2018-08-17] MEDS: (Novolog) Insulin Aspart, Recombinant 100 u/ml 10 ml vial SC SCH (22:39)
[2018-08-17 23:11] LABS: INR 1.1; PROTHROMBIN TIME 11.7 SECONDS (9.7-12.2)
[2018-08-18] MEDS ORDERED: Heparin25000 units/250ml 1/2NS 25,000 UNITS/250 ML BAG IV PRN (02:30)
[2018-08-18] MEDS: Vancomycin 1 gm/NS 200 ml 1 GM/200 ML BAG IVPB SCH (04:45)
[2018-08-18 07:53] LABS: INR 1.1; PROTHROMBIN TIME 11.5 SECONDS (9.7-12.2)
[2018-08-18] MEDS: (Novolog) Insulin Aspart, Recombinant 100 u/ml 10 ml vial SC SCH ×4 (07:53→21:58)
[2018-08-18] MEDS: Piperacill/Tazo 3.375gm in Dex 3.375 GM/50 ML BAG IVPB SCH ×3 (07:53→16:30)
[2018-08-18 08:02] LABS: BASO # 0.1 K/uL (0.0-0.2); BASO % 0.7 % (0.0-2.0); EOS # 0.7 K/uL (0.0-0.7); HEMOGLOBIN 11.6 g/dL (11.0-16.0); LYMPH # 3.7 K/uL (1.0-4.3); LYMPH % 33.6 % (20.0-40.0); MEAN CELL VOLUME 98.3 fL (81.0-99.0); MEAN CORPUSCULAR HEMOGLOBIN 32.7 pg (27.0-31.0); MEAN CORPUSCULAR HGB CONC 33.2 g/dL (33.0-37.0); MEAN PLATELET VOLUME 8.7 fL (7.2-11.7); MONO # 0.6 K/uL (0.0-0.8); MONO % 5.8 % (0.0-10.0); NEUT % 53.9 % (50.0-75.0); NRBC % 0.1 % (0.0-2.0); RBC 3.56 Mil/uL (3.80-5.20); RED CELL DISTRIBUTION WIDTH 14.4 % (11.5-14.5); WHITE BLOOD COUNT 11.1 K/uL (4.8-10.8)
[2018-08-18 08:17] LABS: ALB/GLOB RATIO 1.4 (1.0-2.1); ALBUMIN 3.8 g/dL (3.5-5.0); ALT/SGPT 34 U/L (9-52); AST/SGOT 23 U/L (14-36); BLOOD UREA NITROGEN 16 mg/dL (7-17); CALCIUM 9.2 mg/dl (8.6-10.4); GFR NON-AFRICAN AMERICAN 60
[2018-08-18] MEDS: Insulin Detemir 100 units/ml Vial (Levemir) SC SCH ×2 (09:12→21:57)
[2018-08-18 14:13] LABS: INR 1.1; PROTHROMBIN TIME 11.6 SECONDS (9.7-12.2)
--- NOTE | 2018-08-18 15:03 | CP.PCM.PN ---
Subjective - Date & Time of Evaluation Date of Evaluation: 08/18/18 - Subjective Subjective: patient seen today no nausea no fever no vomiting no dizziness no diarrhea no shortness of breath Objective - Vital Signs/Intake and Output Vital Signs (last 24 hours): Temp Pulse Resp BP Pulse Ox 98 F 91 H 20 135/67 95 08/18/18 00:00 08/18/18 00:00 08/18/18 00:00 08/18/18 09:12 08/18/18 00:00 Intake and Output: 08/18/18 08/18/18 06:59 18:59 Intake Total 300 Output Total 400 Balance -100 - Medications Medications: Current Medications Acetaminophen (Tylenol 325mg Tab) 650 mg PO Q4 PRN PRN Reason: Fever >100.4 F Aspirin (Aspirin) 325 mg PO DAILY [facility] Last Admin: 08/18/18 09:12 Dose: 325 mg Carbidopa/Levodopa (Sinemet 10/100) 1 tab PO BID [facility] Last Admin: 08/18/18 09:13 Dose: 1 tab Digoxin (Digoxin) 0.125 mg PO DAILY@1800 [facility] Last Admin: 08/17/18 17:55 Dose: 0.125 mg Home Med (Acarbose [Precose 50 Mg Tab]) 50 mg PO TID [facility] Piperacillin Sod/Tazobactam Sod (Zosyn 3.375 Gm Iv Premix) 3.375 gm in 50 mls @ 100 mls/hr IVPB Q8H [facility]; Protocol Last Admin: 08/18/18 07:53 Dose: 100 mls/hr Vancomycin/Sodium Chloride (Vancomycin 1 Gm/Ns 200 Ml) 1 gm in 200 mls @ 133 mls/hr IVPB Q24H [facility]; Protocol Stop: 08/23/18 05:01 Last Admin: 08/18/18 04:45 Dose: 133 mls/hr Heparin Sodium/Sodium Chloride (Heparin 17199 Units/250ml 1/2 Normal Saline) 25,000 units in 250 mls @ 9.53 mls/hr IV .Q24H PRN; Protocol PRN Reason: ADJUST RATE PER PROTOCOL Last Admin: 08/18/18 13:26 Dose: 9.53 mls/hr, 9.53 mls/hr Insulin Aspart (Novolog) 0 unit SC ACHS [facility]; Protocol Last Admin: 08/18/18 11:40 Dose: 5 unit Insulin Detemir (Levemir) 26 unit SC Q12 [facility] Last Admin: 08/18/18 09:12 Dose: 26 units Metformin HCl (Glucophage Xr) 500 mg PO BID [facility] Last Admin: 08/18/18 09:13 Dose: 500 mg Metoprolol Tartrate (Lopressor) 25 mg PO BID [facility] Last Admin: 08/18/18 09:12 Dose: 25 mg Morphine Sulfate (Morphine) 1 mg IVP Q4 PRN PRN Reason: Pain, Mild (1-3) Last Admin: 08/18/18 01:45 Dose: 1 mg Nateglinide (Starlix) 120 mg PO TID [facility] Last Admin: 08/18/18 13:08 Dose: 120 mg Rosuvastatin Calcium (Crestor) 20 mg PO HS [facility] Last Admin: 08/17/18 21:39 Dose: 20 mg Sennosides (Senokot Tab) 1 mg PO [facility] Last Admin: 08/17/18 21:42 Dose: 1 mg Sitagliptin Phosphate (Januvia) 25 mg PO DAILY [facility] Last Admin: 08/18/18 09:12 Dose: 25 mg - Labs Labs: 08/18/18 07:37 08/18/18 07:37 PT 11.6 SECONDS (9.7-12.2) 08/18/18 13:54 INR 1.1 08/18/18 13:54 APTT 61.0 SECONDS (21-34) H D 08/18/18 13:54 - Constitutional Appears: Well - Head Exam Head Exam: ATRAUMATIC, NORMAL INSPECTION, NORMOCEPHALIC - Eye Exam Eye Exam: EOMI, Normal appearance, PERRL Pupil Exam: NORMAL ACCOMODATION, PERRL - ENT Exam ENT Exam: Mucous Membranes Moist, Normal Exam - Neck Exam Neck Exam: Full ROM, Normal Inspection. absent: Lymphadenopathy - Respiratory Exam Respiratory Exam: Decreased Breath Sounds - Cardiovascular Exam Cardiovascular Exam: REGULAR RHYTHM, +S1, +S2 - GI/Abdominal Exam GI & Abdominal Exam: Soft, Diminished Bowel Sounds - Rectal Exam Rectal Exam: Deferred - Neurological Exam Neurological Exam: Oriented x3 Assessment and Plan - Assessment and Plan (Free Text) Plan: plan discussed with pt moderate to severe complexity of care labs reviewed vitals reviewed medications reviewed aspirin crestor digoxin glucophage xl heparin januvia levemir lorpessor morphine novolog senokot tab sinemet starlix tylenol vancomycincold pulseless left foot in setting of RA r/o vasculitic component consider Rheum eval Vascular on Board IV antibiotics started after cultures prognosis for limb salvage poor zosyn
[2018-08-18] MEDS: Digoxin 125 mcg (0.125 mg) Tab PO SCH (18:33)
[2018-08-19 00:52] VITALS: RESP 20
[2018-08-19] MEDS: Piperacill/Tazo 3.375gm in Dex 3.375 GM/50 ML BAG IVPB SCH ×3 (00:53→16:30)
[2018-08-19] MEDS: Vancomycin 1 gm/NS 200 ml 1 GM/200 ML BAG IVPB SCH (05:11)
--- NOTE | 2018-08-19 07:58 | CP.PCM.PN ---
Subjective - Date & Time of Evaluation Date of Evaluation: 08/19/18 Time of Evaluation: 07:30 - Subjective Subjective: Vascular surgery progress note for Dr. Frederick Velasquez, PGY-2 Pt seen/examined at bedside Pt reports Left foot pain is slightly better. No other complaints at this time. Resting comfortably in bed. Objective - Vital Signs/Intake and Output Vital Signs (last 24 hours): Temp Pulse Resp BP Pulse Ox 98.1 F 86 20 150/79 96 08/19/18 00:00 08/19/18 00:00 08/19/18 00:00 08/19/18 00:00 08/19/18 00:00 Intake and Output: 08/19/18 08/19/18 06:59 18:59 Intake Total 460 Output Total 300 Balance 160 - Medications Medications: Current Medications Acetaminophen (Tylenol 325mg Tab) 650 mg PO Q4 PRN PRN Reason: Fever >100.4 F Aspirin (Aspirin) 325 mg PO DAILY [facility] Last Admin: 08/18/18 09:12 Dose: 325 mg Carbidopa/Levodopa (Sinemet 10/100) 1 tab PO BID [facility] Last Admin: 08/18/18 18:34 Dose: 1 tab Digoxin (Digoxin) 0.125 mg PO DAILY@1800 [facility] Last Admin: 08/18/18 18:33 Dose: 0.125 mg Home Med (Acarbose [Precose 50 Mg Tab]) 50 mg PO TID [facility] Piperacillin Sod/Tazobactam Sod (Zosyn 3.375 Gm Iv Premix) 3.375 gm in 50 mls @ 100 mls/hr IVPB Q8H [facility]; Protocol Last Admin: 08/19/18 00:53 Dose: 100 mls/hr Vancomycin/Sodium Chloride (Vancomycin 1 Gm/Ns 200 Ml) 1 gm in 200 mls @ 133 mls/hr IVPB Q24H [facility]; Protocol Stop: 08/23/18 05:01 Last Admin: 08/19/18 05:11 Dose: 133 mls/hr Heparin Sodium/Sodium Chloride (Heparin 65319 Units/250ml 1/2 Normal Saline) 25,000 units in 250 mls @ 9.53 mls/hr IV .Q24H PRN; Protocol PRN Reason: ADJUST RATE PER PROTOCOL Last Admin: 08/18/18 13:26 Dose: 9.53 mls/hr, 9.53 mls/hr Insulin Aspart (Novolog) 0 unit SC ACHS [facility]; Protocol Last Admin: 08/18/18 21:58 Dose: Not Given Insulin Detemir (Levemir) 26 unit SC Q12 [facility] Last Admin: 08/18/18 21:57 Dose: 26 units Metformin HCl (Glucophage Xr) 500 mg PO BID [facility] Last Admin: 08/18/18 18:34 Dose: 500 mg Metoprolol Tartrate (Lopressor) 25 mg PO BID [facility] Last Admin: 08/18/18 18:33 Dose: 25 mg Morphine Sulfate (Morphine) 1 mg IVP Q4 PRN PRN Reason: Pain, Mild (1-3) Last Admin: 08/18/18 01:45 Dose: 1 mg Nateglinide (Starlix) 120 mg PO TID [facility] Last Admin: 08/18/18 18:34 Dose: 120 mg Rosuvastatin Calcium (Crestor) 20 mg PO [facility] Last Admin: 08/18/18 21:57 Dose: 20 mg Sennosides (Senokot Tab) 1 mg PO [facility] Last Admin: 08/18/18 21:57 Dose: 1 mg Sitagliptin Phosphate (Januvia) 25 mg PO DAILY [facility] Last Admin: 08/18/18 09:12 Dose: 25 mg - Labs Labs: 08/18/18 07:37 08/18/18 07:37 PT 11.6 SECONDS (9.7-12.2) 08/18/18 13:54 INR 1.1 08/18/18 13:54 APTT 61.0 SECONDS (21-34) H D 08/18/18 13:54 - Constitutional Appears: Non-toxic, No Acute Distress - Head Exam Head Exam: ATRAUMATIC, NORMAL INSPECTION, NORMOCEPHALIC - Eye Exam Eye Exam: EOMI, Normal appearance - ENT Exam ENT Exam: Normal Exam - Neck Exam Neck Exam: Normal Inspection - Respiratory Exam Respiratory Exam: NORMAL BREATHING PATTERN - Cardiovascular Exam Cardiovascular Exam: REGULAR RHYTHM, +S1, +S2 - GI/Abdominal Exam GI & Abdominal Exam: Soft. absent: Tenderness - Extremities Exam Extremities Exam: absent: Normal Inspection Additional comments: Left foot with coolness compared to right - Neurological Exam Neurological Exam: Alert, Awake, CN II-XII Intact, Oriented x3 - Psychiatric Exam Psychiatric exam: Normal Affect, Normal Mood - Skin Skin Exam: Dry, Intact, Normal Color, Warm Assessment and Plan - Assessment and Plan (Free Text) Assessment: 82F w/possible L foot ischemia Plan: Plan for angio tomorrow 08/20 Consent in chart NPO pMN Further care as per primary team DW Dr. Michel Velasquez, PGY-2
[2018-08-19] MEDS: (Novolog) Insulin Aspart, Recombinant 100 u/ml 10 ml vial SC SCH ×4 (08:08→21:41)
[2018-08-19 09:06] LABS: BASO # 0.1 K/uL (0.0-0.2); EOS # 0.8 K/uL (0.0-0.7); EOS % 5.7 % (0.0-4.0); LYMPH # 3.2 K/uL (1.0-4.3); MEAN CORPUSCULAR HEMOGLOBIN 33.3 pg (27.0-31.0); MONO # 0.5 K/uL (0.0-0.8); NRBC % 0.1 % (0.0-2.0)
[2018-08-19 09:18] LABS: BASO % 0.8 % (0.0-2.0); HEMOGLOBIN 12.6 g/dL (11.0-16.0); LYMPH % 23.4 % (20.0-40.0); MEAN CELL VOLUME 98.5 fL (81.0-99.0); MEAN CORPUSCULAR HGB CONC 33.8 g/dL (33.0-37.0); MEAN PLATELET VOLUME 9.3 fL (7.2-11.7); MONO % 3.7 % (0.0-10.0); NEUT # 9.1 K/uL (1.8-7.0); NEUT % 66.4 % (50.0-75.0); RBC 3.77 Mil/uL (3.80-5.20); RED CELL DISTRIBUTION WIDTH 14.3 % (11.5-14.5); WHITE BLOOD COUNT 13.7 K/uL (4.8-10.8)
[2018-08-19] MEDS: Insulin Detemir 100 units/ml Vial (Levemir) SC SCH ×2 (09:23→21:42)
[2018-08-19] MEDS: Heparin25000 units/250ml 1/2NS 25,000 UNITS/250 ML BAG IV PRN ×2 (11:15→18:54)
[2018-08-19 15:12] LABS: URINE COLOR Straw (YELLOW)
[2018-08-19 15:13] LABS: SQUAMOUS EPITHIAL 15 /hpf (0-5); URINE BILIRUBIN NEGATIVE (NEGATIVE); URINE BLOOD 1+ (NEGATIVE); URINE CLARITY Hazy (Clear); URINE GLUCOSE (UA) NORMAL (Normal); URINE LEUKOCYTE ESTERASE TRACE Leu/uL (Negative); URINE PROTEIN NEGATIVE (NEGATIVE); URINE UROBILINOGEN NORMAL mg/dL (0.2-1.0)
--- NOTE | 2018-08-19 15:45 | CP.PCM.PN ---
Subjective - Date & Time of Evaluation Date of Evaluation: 08/19/18 - Subjective Subjective: Patient examined today no nausea no vomitng no dizziness no shortness of breath no diarrhea no fever Objective - Vital Signs/Intake and Output Vital Signs (last 24 hours): Temp Pulse Resp BP Pulse Ox 98.5 F 86 20 182/72 H 96 08/19/18 08:00 08/19/18 08:00 08/19/18 08:00 08/19/18 09:23 08/19/18 08:00 Intake and Output: 08/19/18 08/19/18 06:59 18:59 Intake Total 460 820 Output Total 300 601 Balance 160 219 - Medications Medications: Current Medications Acetaminophen (Tylenol 325mg Tab) 650 mg PO Q4 PRN PRN Reason: Fever >100.4 F Aspirin (Aspirin) 325 mg PO DAILY [facility] Last Admin: 08/19/18 09:23 Dose: 325 mg Carbidopa/Levodopa (Sinemet 10/100) 1 tab PO BID [facility] Last Admin: 08/19/18 09:23 Dose: 1 tab Digoxin (Digoxin) 0.125 mg PO DAILY@1800 [facility] Last Admin: 08/18/18 18:33 Dose: 0.125 mg Home Med (Acarbose [Precose 50 Mg Tab]) 50 mg PO TID [facility] Piperacillin Sod/Tazobactam Sod (Zosyn 3.375 Gm Iv Premix) 3.375 gm in 50 mls @ 100 mls/hr IVPB Q8H [facility]; Protocol Last Admin: 08/19/18 08:09 Dose: 100 mls/hr Vancomycin/Sodium Chloride (Vancomycin 1 Gm/Ns 200 Ml) 1 gm in 200 mls @ 133 mls/hr IVPB Q24H [facility]; Protocol Stop: 08/23/18 05:01 Last Admin: 08/19/18 05:11 Dose: 133 mls/hr Heparin Sodium/Sodium Chloride (Heparin 70106 Units/250ml 1/2 Normal Saline) 25,000 units in 250 mls @ 11.294 mls/hr IV .Q22H9M PRN; Protocol PRN Reason: ADJUST RATE PER PROTOCOL Last Admin: 08/19/18 11:15 Dose: 15 units/kg/hr, 11.294 mls/hr Sodium Chloride (Sodium Chloride 0.9%) 1,000 mls @ 65 mls/hr IV .[id number] [facility] Insulin Aspart (Novolog) 0 unit SC ACHS [facility]; Protocol Last Admin: 08/19/18 11:45 Dose: 4 unit Insulin Detemir (Levemir) 26 unit SC Q12 [facility] Last Admin: 08/19/18 09:23 Dose: 26 units Metformin HCl (Glucophage Xr) 500 mg PO BID [facility] Last Admin: 08/19/18 09:23 Dose: 500 mg Metoprolol Tartrate (Lopressor) 25 mg PO BID [facility] Last Admin: 08/19/18 09:23 Dose: 25 mg Morphine Sulfate (Morphine) 1 mg IVP Q4 PRN PRN Reason: Pain, Mild (1-3) Last Admin: 08/18/18 01:45 Dose: 1 mg Nateglinide (Starlix) 120 mg PO TID [facility] Last Admin: 08/19/18 14:23 Dose: 120 mg Rosuvastatin Calcium (Crestor) 20 mg PO [facility] Last Admin: 08/18/18 21:57 Dose: 20 mg Sennosides (Senokot Tab) 1 mg PO [facility] Last Admin: 08/18/18 21:57 Dose: 1 mg Sitagliptin Phosphate (Januvia) 25 mg PO DAILY [facility] Last Admin: 08/19/18 09:23 Dose: 25 mg - Labs Labs: 08/19/18 08:52 08/18/18 07:37 PT 11.6 SECONDS (9.7-12.2) 08/18/18 13:54 INR 1.1 08/18/18 13:54 APTT 43.0 SECONDS (21-34) H D 08/19/18 08:52 - Constitutional Appears: Well - Head Exam Head Exam: ATRAUMATIC, NORMAL INSPECTION, NORMOCEPHALIC - Eye Exam Eye Exam: EOMI, Normal appearance, PERRL Pupil Exam: NORMAL ACCOMODATION, PERRL - ENT Exam ENT Exam: Mucous Membranes Moist, Normal Exam - Neck Exam Neck Exam: Full ROM, Normal Inspection. absent: Lymphadenopathy - Respiratory Exam Respiratory Exam: Decreased Breath Sounds - Cardiovascular Exam Cardiovascular Exam: +S1, +S2 - GI/Abdominal Exam GI & Abdominal Exam: Soft, Diminished Bowel Sounds - Rectal Exam Rectal Exam: Deferred - Neurological Exam Neurological Exam: Oriented x3 Assessment and Plan - Assessment and Plan (Free Text) Plan: aspirin crestor digoxin glucophage xl heparin januvia levemir lorpessor morphine novolog senokot tab sinemet starlix tylenol vancomycin plan discussed with pt moderate to severe complexity of care labs reviewed vitals reviewed medications reviewed
[2018-08-19] MEDS: Digoxin 125 mcg (0.125 mg) Tab PO SCH (18:13)
[2018-08-19 18:20] LABS: ANTI STREPTOLYSIN O NEGATIVE (NEGATIVE)
--- NOTE | 2018-08-19 18:39 | CP.PCM.PN ---
Subjective - Date & Time of Evaluation Date of Evaluation: 08/19/18 Time of Evaluation: 08:00 - Subjective Subjective: less cellulitis tips of toes blackened left 2nd and 4th and right vascular on board Claims Hx of temporal arteritis cont iv rx Objective - Vital Signs/Intake and Output Vital Signs (last 24 hours): Temp Pulse Resp BP Pulse Ox 97.4 F L 85 20 157/77 H 95 08/19/18 16:31 08/19/18 16:31 08/19/18 16:31 08/19/18 18:12 08/19/18 16:31 Intake and Output: 08/19/18 08/19/18 06:59 18:59 Intake Total 460 820 Output Total 300 601 Balance 160 219 - Medications Medications: Current Medications Acetaminophen (Tylenol 325mg Tab) 650 mg PO Q4 PRN PRN Reason: Fever >100.4 F Aspirin (Aspirin) 325 mg PO DAILY [facility] Last Admin: 08/19/18 09:23 Dose: 325 mg Carbidopa/Levodopa (Sinemet 10/100) 1 tab PO BID [facility] Last Admin: 08/19/18 18:13 Dose: 1 tab Digoxin (Digoxin) 0.125 mg PO DAILY@1800 [facility] Last Admin: 08/19/18 18:13 Dose: 0.125 mg Home Med (Acarbose [Precose 50 Mg Tab]) 50 mg PO TID [facility] Piperacillin Sod/Tazobactam Sod (Zosyn 3.375 Gm Iv Premix) 3.375 gm in 50 mls @ 100 mls/hr IVPB Q8H [facility]; Protocol Last Admin: 08/19/18 16:30 Dose: 100 mls/hr Vancomycin/Sodium Chloride (Vancomycin 1 Gm/Ns 200 Ml) 1 gm in 200 mls @ 133 mls/hr IVPB Q24H [facility]; Protocol Stop: 08/23/18 05:01 Last Admin: 08/19/18 05:11 Dose: 133 mls/hr Heparin Sodium/Sodium Chloride (Heparin 37489 Units/250ml 1/2 Normal Saline) 25,000 units in 250 mls @ 11.294 mls/hr IV .Q22H9M PRN; Protocol PRN Reason: ADJUST RATE PER PROTOCOL Last Admin: 08/19/18 11:15 Dose: 15 units/kg/hr, 11.294 mls/hr Sodium Chloride (Sodium Chloride 0.9%) 1,000 mls @ 65 mls/hr IV .[id number] [facility] Insulin Aspart (Novolog) 0 unit SC ACHS [facility]; Protocol Last Admin: 08/19/18 16:30 Dose: 3 unit Insulin Detemir (Levemir) 26 unit SC Q12 [facility] Last Admin: 08/19/18 09:23 Dose: 26 units Metformin HCl (Glucophage Xr) 500 mg PO BID [facility] Last Admin: 08/19/18 18:13 Dose: 500 mg Metoprolol Tartrate (Lopressor) 25 mg PO BID [facility] Last Admin: 08/19/18 18:12 Dose: 25 mg Morphine Sulfate (Morphine) 1 mg IVP Q4 PRN PRN Reason: Pain, Mild (1-3) Last Admin: 08/18/18 01:45 Dose: 1 mg Nateglinide (Starlix) 120 mg PO TID [facility] Last Admin: 08/19/18 18:13 Dose: 120 mg Rosuvastatin Calcium (Crestor) 20 mg PO [facility] Last Admin: 08/18/18 21:57 Dose: 20 mg Sennosides (Senokot Tab) 1 mg PO [facility] Last Admin: 08/18/18 21:57 Dose: 1 mg Sitagliptin Phosphate (Januvia) 25 mg PO DAILY [facility] Last Admin: 08/19/18 09:23 Dose: 25 mg - Labs Labs: 08/19/18 08:52 08/18/18 07:37 PT 11.6 SECONDS (9.7-12.2) 08/18/18 13:54 INR 1.1 08/18/18 13:54 APTT 67.0 SECONDS (21-34) H D 08/19/18 17:36 - Constitutional Appears: Non-toxic, No Acute Distress, Chronically Ill - Head Exam Head Exam: ATRAUMATIC, NORMAL INSPECTION, NORMOCEPHALIC - Eye Exam Eye Exam: EOMI, Normal appearance, PERRL Pupil Exam: NORMAL ACCOMODATION, PERRL - ENT Exam ENT Exam: Mucous Membranes Moist, Normal Exam - Neck Exam Neck Exam: Full ROM, Normal Inspection. absent: Lymphadenopathy - Respiratory Exam Respiratory Exam: Clear to Ausculation Bilateral, NORMAL BREATHING PATTERN - Cardiovascular Exam Cardiovascular Exam: REGULAR RHYTHM, +S1, +S2. absent: Murmur - GI/Abdominal Exam GI & Abdominal Exam: Soft, Normal Bowel Sounds. absent: Tenderness - Rectal Exam Rectal Exam: Deferred - Exam Exam: NORMAL INSPECTION - Extremities Exam Extremities Exam: Full ROM, Normal Capillary Refill, Pedal Edema, Tenderness. absent: Joint Swelling, Normal Inspection Additional comments: digits on both feet with necrotic tips- left 2nd and 4th asas well as right 3rd - Back Exam Back Exam: NORMAL INSPECTION - Neurological Exam Neurological Exam: Alert, Awake, CN II-XII Intact, Normal Gait, Oriented x3 - Psychiatric Exam Psychiatric exam: Normal Affect, Normal Mood - Skin Skin Exam: Dry, Erythema, Intact, Warm. absent: Normal Color Assessment and Plan (1) Cellulitis and abscess of foot Status: Acute (2) Cold left foot Status: Acute (3) Diabetes mellitus Status: Chronic - Assessment and Plan (Free Text) Assessment: possible vasculitic component consider rheum eval vascular follow up blood cultures negative Cont IV antibiotics
[2018-08-20] MEDS: Sodium Chloride 0.9% 1,000 ML IV SCH ×2 (01:00→18:00)
[2018-08-20] MEDS: Piperacill/Tazo 3.375gm in Dex 3.375 GM/50 ML BAG IVPB SCH ×3 (01:20→18:25)
[2018-08-20 06:45] LABS: ALB/GLOB RATIO 1.4 (1.0-2.1); ALT/SGPT 26 U/L (9-52); AST/SGOT 28 U/L (14-36); BLOOD UREA NITROGEN 13 mg/dL (7-17); CALCIUM 9.6 mg/dl (8.6-10.4); GFR NON-AFRICAN AMERICAN 60
[2018-08-20 06:49] LABS: COMPLEMENT C4 37.5 mg/dL (14.0-44.0)
[2018-08-20 06:51] LABS: BASO # 0.1 K/uL (0.0-0.2); BASO % 0.5 % (0.0-2.0); EOS # 0.7 K/uL (0.0-0.7); HEMOGLOBIN 11.7 g/dL (11.0-16.0); LYMPH # 3.7 K/uL (1.0-4.3); LYMPH % 26.5 % (20.0-40.0); MEAN CELL VOLUME 97.4 fL (81.0-99.0); MEAN CORPUSCULAR HEMOGLOBIN 32.9 pg (27.0-31.0); MEAN CORPUSCULAR HGB CONC 33.8 g/dL (33.0-37.0); MEAN PLATELET VOLUME 8.6 fL (7.2-11.7); MONO # 0.7 K/uL (0.0-0.8); MONO % 5.3 % (0.0-10.0); NEUT # 8.7 K/uL (1.8-7.0); NEUT % 62.7 % (50.0-75.0); NRBC % 0.1 % (0.0-2.0); RBC 3.56 Mil/uL (3.80-5.20); RED CELL DISTRIBUTION WIDTH 14.2 % (11.5-14.5); WHITE BLOOD COUNT 13.9 K/uL (4.8-10.8)
[2018-08-20] MEDS: Vancomycin 1 gm/NS 200 ml 1 GM/200 ML BAG IVPB SCH (07:22)
[2018-08-20 07:32] LABS: INR 1.1; PROTHROMBIN TIME 11.8 SECONDS (9.7-12.2)
[2018-08-20] MEDS: (Novolog) Insulin Aspart, Recombinant 100 u/ml 10 ml vial SC SCH ×5 (08:32→22:36)
[2018-08-20] MEDS: Insulin Detemir 100 units/ml Vial (Levemir) SC SCH ×2 (10:57→22:37)
--- NOTE | 2018-08-20 13:49 | VASCLAB ---
Date of service: 08/18/2018 STUDY DESCRIPTION: Lower Extremity Arterial Exam (PVR). HISTORY: PVD PRIORS: Last arterial exam 06/01/2007, normal. TECHNIQUE: Pulse volume recording waveforms and segmental pressures of bilateral lower extremities at multiple levels were obtained. Ankle Brachial Indices (ABIs) were calculated. Report prepared by KARMEN Morocho RIGHT LOWER EXTREMITY: * Brachial artery: n/a * Low thigh: Pressure - >220 mmHg: Ratio - n/c PVR waveform: Pulsatile * Calf: Pressure - >220 mmHg: Ratio - n/c PVR waveform: Pulsatile * Posterior tibial Artery: Pressure - 0 mmHg: Ratio - 0 PVR waveform: Reduced * Dorsalis pedis Artery: Pressure - 72 mmHg: Ratio - 0.53 PVR waveform: Reduced * Great toe: Pressure - 0 mmHg: Ratio - 0 PVR waveform: Absent Ankle brachial index (FERNANDO): 0.53 LEFT LOWER EXTREMITY: * Brachial artery: Pressure - 135 mmHg. * Low thigh: Pressure - 0 mmHg: Ratio - 0 PVR waveform: Pulsatile * Calf: Pressure - 0 mmHg: Ratio - 0 PVR waveform: Pulsatile * Posterior tibial Artery: Pressure - 0 mmHg: Ratio - 0 PVR waveform: Pulsatile * Dorsalis pedis Artery: Pressure - 0 mmHg: Ratio - 0 PVR waveform: Absent * Great toe: Pressure - 0 mmHg: Ratio - 0 PVR waveform: Absent Ankle brachial index (FERNANDO): Absent OTHER FINDINGS: Right: Non audible pulse of the right posterior tibial artery. Left: Non audible pulses of the left posterior tibial and dorsalis pedis arteries. IMPRESSION: Right: FERNANDO and PVR waveforms suggest moderate to severe arterial insufficiency at rest, involving the tibial, pedal and digital arteries. Left: Absent ankle brachial index. PVR waveforms suggest moderate to severe arterial insufficiency at rest, involving the tibial, pedal and digital arteries.
[2018-08-20] MEDS ORDERED: Iodixanol 320 MG/ML 200 ML BOTTLE IV ONE (14:04)
[2018-08-20] MEDS ORDERED: Lidocaine 2% MPF (5 ml) Inj ONE (14:35)
--- NOTE | 2018-08-20 16:03 | PCM.SURG1 ---
Surgeon's Initial Post Op Note - Surgeon's Notes Surgeon: Dr. Pearson Um Nurse: Karen PGY2 Type of Anesthesia: IV Sedation, Local Anesthesia Administered By: Dr. Ang Pre-Operative Diagnosis: Peripheral artery disease Operative Findings: stenoseses in 1. left popliteal artery, 2. left anterior tibial artery Post-Operative Diagnosis: Peripheral artery disease Operation Performed: aortofemoral run off, selective catheterization of left femoral artery, artherectomy of left popliteal into tibioperoneal trunk, angioplasty of distal left popliteal artery and entire left anterior tibial artery Specimen/Specimens Removed: N/A Estimated Blood Loss: EBL {In ML}: 10 Blood Products Given: N/A Drains Used: No Drains Post-Op Condition: Good Date of Surgery/Procedure: 08/20/18 Time of Surgery/Procedure: 16:04
--- NOTE | 2018-08-20 16:05 | PCM.SURG1 ---
Surgeon's Initial Post Op Note - Surgeon's Notes Surgeon: kylie Grain Ii Farmworker: 0 Type of Anesthesia: IV Sedation Anesthesia Administered By: tip Pre-Operative Diagnosis: gangrene left foot Operative Findings: severe stenosis of popliteal arteery. PT and Peroneal occluded. Anterior tibial occluded but with multiple stenotic segments Post-Operative Diagnosis: same Operation Performed: aortofemoral angiogram via right groin. selective catherization of left femoral arteery. pathway atherectomy of sfa/pop/dcb 4mm. balloonangioplasty of anteriot tibial artery. perclose right groin Specimen/Specimens Removed: 0 Estimated Blood Loss: EBL {In ML}: 25 Blood Products Given: N/A Drains Used: No Drains Post-Op Condition: Good Date of Surgery/Procedure: 08/20/18 Time of Surgery/Procedure: 16:05
[2018-08-20] MEDS: Dextrose 5%/0.45% NS 1,000 ML IV SCH (18:11)
[2018-08-20] MEDS: Digoxin 125 mcg (0.125 mg) Tab PO SCH (18:18)
--- NOTE | 2018-08-20 18:43 | CP.PCM.PN ---
Subjective - Date & Time of Evaluation Date of Evaluation: 08/20/18 - Subjective Subjective: patient examined today no nausea no vomiting no fever no dizziness no diarrhea no shortness of breath Objective - Vital Signs/Intake and Output Vital Signs (last 24 hours): Temp Pulse Resp BP Pulse Ox 98.4 F 82 20 119/73 95 08/20/18 07:57 08/20/18 07:57 08/20/18 07:57 08/20/18 18:18 08/20/18 07:57 Intake and Output: 08/20/18 08/20/18 06:59 18:59 Intake Total 489 1020 Output Total 500 900 Balance -11 120 - Medications Medications: Current Medications Acetaminophen (Tylenol 325mg Tab) 650 mg PO Q4 PRN PRN Reason: Fever >100.4 F Aspirin (Aspirin) 325 mg PO DAILY [facility] Last Admin: 08/20/18 10:55 Dose: 325 mg Carbidopa/Levodopa (Sinemet 10/100) 1 tab PO BID [facility] Last Admin: 08/20/18 18:19 Dose: 1 tab Clopidogrel Bisulfate (Plavix) 75 mg PO DAILY [facility] Digoxin (Digoxin) 0.125 mg PO DAILY@1800 [facility] Last Admin: 08/20/18 18:18 Dose: 0.125 mg Piperacillin Sod/Tazobactam Sod (Zosyn 3.375 Gm Iv Premix) 3.375 gm in 50 mls @ 100 mls/hr IVPB Q8H [facility]; Protocol Last Admin: 08/20/18 18:25 Dose: 100 mls/hr Vancomycin/Sodium Chloride (Vancomycin 1 Gm/Ns 200 Ml) 1 gm in 200 mls @ 133 mls/hr IVPB Q24H [facility]; Protocol Stop: 08/23/18 05:01 Last Admin: 08/20/18 07:22 Dose: 133 mls/hr Heparin Sodium/Sodium Chloride (Heparin 08591 Units/250ml 1/2 Normal Saline) 25,000 units in 250 mls @ 11.294 mls/hr IV .Q22H9M PRN; Protocol PRN Reason: ADJUST RATE PER PROTOCOL Last Admin: 08/19/18 18:54 Dose: 15 units/kg/hr, 11.294 mls/hr Sodium Chloride (Sodium Chloride 0.9%) 1,000 mls @ 65 mls/hr IV .[id number] [facility] Last Admin: 08/20/18 01:00 Dose: 65 mls/hr Dextrose/Sodium Chloride (Dextrose 5%/0.45% Ns 1000 Ml) 1,000 mls @ 80 mls/hr IV .[id number] [facility] Last Admin: 08/20/18 18:11 Dose: 80 mls/hr Insulin Aspart (Novolog) 0 unit SC ACHS [facility]; Protocol Last Admin: 08/20/18 18:22 Dose: 2 unit Insulin Detemir (Levemir) 26 unit SC Q12 [facility] Last Admin: 08/20/18 10:57 Dose: Not Given Metformin HCl (Glucophage Xr) 500 mg PO BID [facility] Last Admin: 08/20/18 18:18 Dose: 500 mg Metoprolol Tartrate (Lopressor) 25 mg PO BID [facility] Last Admin: 08/20/18 18:18 Dose: 25 mg Morphine Sulfate (Morphine) 1 mg IVP Q4 PRN PRN Reason: Pain, Mild (1-3) Last Admin: 08/18/18 01:45 Dose: 1 mg Nateglinide (Starlix) 120 mg PO TID [facility] Last Admin: 08/20/18 18:19 Dose: 120 mg Rosuvastatin Calcium (Crestor) 20 mg PO [facility] Last Admin: 08/19/18 21:39 Dose: 20 mg Sennosides (Senokot Tab) 1 mg PO [facility] Last Admin: 08/19/18 21:39 Dose: 1 mg Sitagliptin Phosphate (Januvia) 25 mg PO DAILY [facility] Last Admin: 08/20/18 12:29 Dose: Not Given - Labs Labs: 08/20/18 06:25 08/20/18 06:25 PT 11.8 SECONDS (9.7-12.2) 08/20/18 06:25 INR 1.1 08/20/18 06:25 APTT 40.0 SECONDS (21-34) H D 08/20/18 06:25 - Constitutional Appears: Well - Head Exam Head Exam: ATRAUMATIC, NORMAL INSPECTION, NORMOCEPHALIC - Eye Exam Eye Exam: EOMI, Normal appearance, PERRL Pupil Exam: NORMAL ACCOMODATION, PERRL - ENT Exam ENT Exam: Mucous Membranes Moist, Normal Exam - Neck Exam Neck Exam: Full ROM, Normal Inspection. absent: Lymphadenopathy - Respiratory Exam Respiratory Exam: Decreased Breath Sounds - Cardiovascular Exam Cardiovascular Exam: REGULAR RHYTHM, +S1, +S2 - GI/Abdominal Exam GI & Abdominal Exam: Soft, Diminished Bowel Sounds - Rectal Exam Rectal Exam: Deferred - Neurological Exam Neurological Exam: Oriented x3 Assessment and Plan - Assessment and Plan (Free Text) Plan: aspirin crestor digoxin glucophage xl heparin januvia levemir lorpessor morphine novolog senokot tab sinemet starlix tylenol vancomycin plan discussed with pt moderate complexity of care labs reviewed vitals reviewed medications reviewed
[2018-08-20] MEDS: Heparin25000 units/250ml 1/2NS 25,000 UNITS/250 ML BAG IV PRN (22:31)
[2018-08-21] MEDS: Piperacill/Tazo 3.375gm in Dex 3.375 GM/50 ML BAG IVPB SCH ×3 (00:17→16:30)
--- NOTE | 2018-08-21 03:54 | VAS ---
DATE: 08/20/2018 PREOPERATIVE DIAGNOSIS: Gangrene, left foot. PROCEDURE CARRIED OUT: Aortofemoral angiogram via right groin with selective catheterization of left femoral artery, pathway atherectomy of the left superficial femoral and popliteal artery, and balloon angioplasty with drug-coated balloon of the same, and then balloon angioplasty of the anterior tibial artery from this origin down to the foot using a 1.5 to 2.5 mm tapered balloon in different segments. Perclose closure of right groin. The patient has gangrene in the foot. OPERATIVE FINDINGS: The aorta and renal arteries were unremarkable, although the right renal artery was not seen well on the study. The aorta, iliac arteries, common iliac arteries, internal iliac arteries, external iliac arteries, common femoral, and profunda femoris arteries were widely patent. There appeared to be a slight degree of stenosis at the origin of the right superficial femoral artery and it was hard to be clear about this. Below this, detailed pictures were taken at the end of the study basically showed that the superficial femoral artery was patent, previous severe tibial disease. Detailed pictures below the level of the tibial vessels were not obtained. On the left side, which was the effected side, there was a high-grade stenosis just above the knee joint and throughout the popliteal artery. In addition, the posterior tibial and peroneal artery were completed occluded with no reconstitution distally. The anterior tibial artery was severely diseased throughout its course and reconstituted distally and to a small dorsalis pedis. Subsequently, this was wired. Subsequently, a stiff-angled guidewire was advanced over the aortic bifurcation and 7-Lao sheath positioned in the midportion of the superficial femoral artery. Using a road mapping technique, this lesion was crossed and eventually, this was exchanged for a 0.14 wire. I then carried out a pathway atherectomy without a filter device of the popliteal and distal SFA with good cosmetic results. We ballooned this entire segment with a 4-mm drug-coated balloon. We then went distally, carried out balloon angioplasty with a 1.5 to 2 tapered balloon distally and then a 2.5 balloon for the more proximal segment. The final cosmetic result was excellent. There was actually a palpable dorsalis pedis pulse. Blood loss for the procedure was 25 mL. PROCEDURE CARRIED OUT: 1. Aortofemoral angiogram via the right groin, selective catheterization of left femoral artery. 2. Pathway atherectomy and balloon angioplasty of the left popliteal and superficial femoral artery and balloon angioplasty of the anterior tibial artery. Jeremi Pearson Jr., MD cc: Dane Franklin MD
[2018-08-21] MEDS: Vancomycin 1 gm/NS 200 ml 1 GM/200 ML BAG IVPB SCH (05:26)
[2018-08-21 08:07] LABS: ALB/GLOB RATIO 1.5 (1.0-2.1); ALBUMIN 3.8 g/dL (3.5-5.0); ALT/SGPT 30 U/L (9-52); AST/SGOT 26 U/L (14-36); BLOOD UREA NITROGEN 11 mg/dL (7-17); GFR NON-AFRICAN AMERICAN 60
[2018-08-21] MEDS: (Novolog) Insulin Aspart, Recombinant 100 u/ml 10 ml vial SC SCH ×3 (08:24→17:14)
[2018-08-21] MEDS: Insulin Detemir 100 units/ml Vial (Levemir) SC SCH (09:47)
[2018-08-21] MEDS: Dextrose 5%/0.45% NS 1,000 ML IV SCH (09:51)
--- NOTE | 2018-08-21 11:42 | CP.PCM.PN ---
Subjective - Date & Time of Evaluation Date of Evaluation: 08/21/18 Time of Evaluation: 07:15 - Subjective Subjective: Vascular Surgery Note for Dr. Pearson Patient seen and examined at bedside. No acute event overnight. Patient tolerating diet. Palpable DP on left foot. Patient still on heparin drip. Objective - Vital Signs/Intake and Output Vital Signs (last 24 hours): Temp Pulse Resp BP Pulse Ox 98.8 F 84 20 114/67 95 08/21/18 08:01 08/21/18 08:01 08/21/18 08:01 08/21/18 09:47 08/21/18 08:01 Intake and Output: 08/21/18 08/21/18 06:59 18:59 Intake Total 1000 Output Total 300 Balance 700 - Medications Medications: Current Medications Acetaminophen (Tylenol 325mg Tab) 650 mg PO Q4 PRN PRN Reason: Fever >100.4 F Aspirin (Aspirin) 325 mg PO DAILY [facility] Last Admin: 08/21/18 09:46 Dose: 325 mg Carbidopa/Levodopa (Sinemet 10/100) 1 tab PO BID [facility] Last Admin: 08/21/18 09:47 Dose: 1 tab Clopidogrel Bisulfate (Plavix) 75 mg PO DAILY [facility] Last Admin: 08/21/18 09:46 Dose: 75 mg Digoxin (Digoxin) 0.125 mg PO DAILY@1800 [facility] Last Admin: 08/20/18 18:18 Dose: 0.125 mg Piperacillin Sod/Tazobactam Sod (Zosyn 3.375 Gm Iv Premix) 3.375 gm in 50 mls @ 100 mls/hr IVPB Q8H [facility]; Protocol Last Admin: 08/21/18 09:30 Dose: 100 mls/hr Vancomycin/Sodium Chloride (Vancomycin 1 Gm/Ns 200 Ml) 1 gm in 200 mls @ 133 mls/hr IVPB Q24H [facility]; Protocol Stop: 08/23/18 05:01 Last Admin: 08/21/18 05:26 Dose: 133 mls/hr Heparin Sodium/Sodium Chloride (Heparin 02335 Units/250ml 1/2 Normal Saline) 25,000 units in 250 mls @ 11.294 mls/hr IV .[id number] PRN; Protocol PRN Reason: ADJUST RATE PER PROTOCOL Last Admin: 08/20/18 22:31 Dose: 15 units/kg/hr, 11.294 mls/hr Sodium Chloride (Sodium Chloride 0.9%) 1,000 mls @ 65 mls/hr IV .[id number] [facility] Last Admin: 08/20/18 18:00 Dose: Not Given Insulin Aspart (Novolog) 0 unit SC ACHS [facility]; Protocol Last Admin: 08/21/18 08:24 Dose: 2 unit Insulin Detemir (Levemir) 26 unit SC Q12 [facility] Last Admin: 08/21/18 09:47 Dose: 26 units Metformin HCl (Glucophage Xr) 500 mg PO BID [facility] Last Admin: 08/21/18 10:13 Dose: 500 mg Metoprolol Tartrate (Lopressor) 25 mg PO BID [facility] Last Admin: 08/21/18 09:47 Dose: 25 mg Morphine Sulfate (Morphine) 1 mg IVP Q4 PRN PRN Reason: Pain, Mild (1-3) Last Admin: 08/21/18 10:14 Dose: 1 mg Nateglinide (Starlix) 120 mg PO TID [facility] Last Admin: 08/21/18 09:48 Dose: 120 mg Rosuvastatin Calcium (Crestor) 20 mg PO [facility] Last Admin: 08/20/18 22:35 Dose: 20 mg Sennosides (Senokot Tab) 1 mg PO [facility] Last Admin: 08/20/18 22:35 Dose: 1 mg Sitagliptin Phosphate (Januvia) 25 mg PO DAILY [facility] Last Admin: 08/21/18 09:46 Dose: 25 mg - Labs Labs: 08/20/18 06:25 08/21/18 07:19 PT 11.8 SECONDS (9.7-12.2) 08/20/18 06:25 INR 1.1 08/20/18 06:25 APTT 75.0 SECONDS (21-34) H D 08/21/18 07:19 - Constitutional Appears: No Acute Distress - Respiratory Exam Respiratory Exam: NORMAL BREATHING PATTERN - Cardiovascular Exam Cardiovascular Exam: REGULAR RHYTHM - Extremities Exam Additional comments: LLE: palpable DP, erythema on distal foot - Back Exam Back Exam: absent: CVA tenderness (L), CVA tenderness (R) - Neurological Exam Neurological Exam: Alert, Awake - Psychiatric Exam Psychiatric exam: Normal Affect, Normal Mood - Skin Skin Exam: Dry, Warm Assessment and Plan - Assessment and Plan (Free Text) Assessment: 82 F s/p angiogram with intervention POD#1 Plan: -Diet as tolerated -Continue Wound care -medical management as per primary team -No further intervention at this time -Discussed with Dr. Ruy Jones PGY2
[2018-08-21] MEDS: Sodium Chloride 0.9% 1,000 ML IV SCH (12:18)
[2018-08-21 16:02] VITALS: PULSE 86; TEMP 98.1; O2SAT 96
[2018-08-21] MEDS ORDERED: Pneumococcal 23-Valent Vaccine IM ONE (16:35)
[2018-08-21 17:17] VITALS: BP 124/70
[2018-08-21] MEDS: Digoxin 125 mcg (0.125 mg) Tab PO SCH (17:17)
[2018-08-21 17:18] VITALS: PULSE 86
--- NOTE | 2018-08-21 17:24 | CP.PCM.PN ---
Subjective - Date & Time of Evaluation Date of Evaluation: 08/21/18 Time of Evaluation: 17:24 - Subjective Subjective: awake, alert, denies acute pain or distress. Objective - Vital Signs/Intake and Output Vital Signs (last 24 hours): Temp Pulse Resp BP Pulse Ox 98.1 F 86 20 124/72 96 08/21/18 16:01 08/21/18 16:01 08/21/18 16:01 08/21/18 16:01 08/21/18 16:01 Intake and Output: 08/21/18 08/21/18 06:59 18:59 Intake Total 1000 1232.2 Output Total 300 700 Balance 700 532.2 - Medications Medications: Current Medications Acetaminophen (Tylenol 325mg Tab) 650 mg PO Q4 PRN PRN Reason: Fever >100.4 F Aspirin (Aspirin) 325 mg PO DAILY [facility] Last Admin: 08/21/18 09:46 Dose: 325 mg Carbidopa/Levodopa (Sinemet 10/100) 1 tab PO BID [facility] Last Admin: 08/21/18 09:47 Dose: 1 tab Clopidogrel Bisulfate (Plavix) 75 mg PO DAILY [facility] Last Admin: 08/21/18 09:46 Dose: 75 mg Digoxin (Digoxin) 0.125 mg PO DAILY@1800 [facility] Last Admin: 08/20/18 18:18 Dose: 0.125 mg Heparin Sodium (Porcine) (Heparin) 5,000 units SC Q8 [facility] Last Admin: 08/21/18 14:26 Dose: 5,000 units Piperacillin Sod/Tazobactam Sod (Zosyn 3.375 Gm Iv Premix) 3.375 gm in 50 mls @ 100 mls/hr IVPB Q8H [facility]; Protocol Last Admin: 08/21/18 09:30 Dose: 100 mls/hr Vancomycin/Sodium Chloride (Vancomycin 1 Gm/Ns 200 Ml) 1 gm in 200 mls @ 133 mls/hr IVPB Q24H [facility]; Protocol Stop: 08/23/18 05:01 Last Admin: 08/21/18 05:26 Dose: 133 mls/hr Sodium Chloride (Sodium Chloride 0.9%) 1,000 mls @ 65 mls/hr IV .[id number] [facility] Last Admin: 08/21/18 12:18 Dose: 65 mls/hr Insulin Aspart (Novolog) 0 unit SC ACHS [facility]; Protocol Last Admin: 08/21/18 12:15 Dose: 4 unit Insulin Detemir (Levemir) 26 unit SC Q12 [facility] Last Admin: 08/21/18 09:47 Dose: 26 units Metformin HCl (Glucophage Xr) 500 mg PO BID [facility] Last Admin: 08/21/18 10:13 Dose: 500 mg Metoprolol Tartrate (Lopressor) 25 mg PO BID [facility] Last Admin: 08/21/18 09:47 Dose: 25 mg Nateglinide (Starlix) 120 mg PO TID [facility] Last Admin: 08/21/18 14:26 Dose: 120 mg Rosuvastatin Calcium (Crestor) 20 mg PO HS [facility] Last Admin: 08/20/18 22:35 Dose: 20 mg Sennosides (Senokot Tab) 1 mg PO HS [facility] Last Admin: 08/20/18 22:35 Dose: 1 mg Sitagliptin Phosphate (Januvia) 25 mg PO DAILY [facility] Last Admin: 08/21/18 09:46 Dose: 25 mg - Labs Labs: 08/20/18 06:25 08/21/18 07:19 PT 11.8 SECONDS (9.7-12.2) 08/20/18 06:25 INR 1.1 08/20/18 06:25 APTT 75.0 SECONDS (21-34) H D 08/21/18 07:19 Assessment and Plan - Assessment and Plan (Free Text) Assessment: 82 year old female admitted from [facility] with worsening left leg pain and small gangrene on the right toe. Balloon angioplasty done by DR Redmond, started on plavix daily. Cleared to be send back to the residential today. Will continue with vancomycin iv daily for [address] Walsh. Advised to follow up with DR Gambino for toe gangrene.
[2018-08-22 13:07] LABS: RNP <1.0 AI (<1.0)
== END 2018-08-21 18:21 | DRG 271 ==
LOC: C.ER 23:59 → C.9E 08-17 04:39 → C.3T 08-17 12:15
PROVIDERS: ADMIT Internal Medicine Nephrology; ATTEND Internal Medicine Nephrology
PROC: 047L3ZZ Dilation of Left Femoral Artery, Percutaneous Approach (ICD-10-PCS; principal; 2018-08-20)
PROC: 04CL3ZZ Extirpation of Matter from Left Femoral Artery, Percutaneous Approach (ICD-10-PCS; 2018-08-20)
PROC: 047N3ZZ Dilation of Left Popliteal Artery, Percutaneous Approach (ICD-10-PCS; 2018-08-20)
PROC: 047Q3ZZ Dilation of Left Anterior Tibial Artery, Percutaneous Approach (ICD-10-PCS; 2018-08-20)
PROC: 04CN3ZZ Extirpation of Matter from Left Popliteal Artery, Percutaneous Approach (ICD-10-PCS; 2018-08-20)
PROC: B41DZZZ Fluoroscopy of Aorta and Bilateral Lower Extremity Arteries (ICD-10-PCS; 2018-08-20)
DX: E11.52 Type 2 diabetes mellitus with diabetic peripheral angiopathy with gangrene (principal); L02.612 Cutaneous abscess of left foot; I70.262 Atherosclerosis of native arteries of extremities with gangrene, left leg; L03.116 Cellulitis of left lower limb; E11.65 Type 2 diabetes mellitus with hyperglycemia; I10 Essential (primary) hypertension; D72.829 Elevated white blood cell count, unspecified; G20 Parkinson's disease; F02.80 Dementia in other diseases classified elsewhere, unspecified severity, without behavioral disturbance, psychotic disturbance, mood disturbance, and anxiety; K21.9 Gastro-esophageal reflux disease without esophagitis; M06.9 Rheumatoid arthritis, unspecified; E78.5 Hyperlipidemia, unspecified; E78.00 Pure hypercholesterolemia, unspecified; M17.0 Bilateral primary osteoarthritis of knee; M81.0 Age-related osteoporosis without current pathological fracture; K59.00 Constipation, unspecified; Z86.718 Personal history of other venous thrombosis and embolism; Z86.73 Personal history of transient ischemic attack (TIA), and cerebral infarction without residual deficits; Z86.79 Personal history of other diseases of the circulatory system; Z79.4 Long term (current) use of insulin; Z90.710 Acquired absence of both cervix and uterus; Z87.891 Personal history of nicotine dependence; Z91.81 History of falling; Z99.3 Dependence on wheelchair; Z82.3 Family history of stroke

== ENCOUNTER 2018-09-11 12:51 | Inpatient (IN) | payer MEDICARE, MEDICAID ==
[2018-09-11 13:08] VITALS: BMI 31.2
[2018-09-11 15:18] LABS: BASO # 0.1 K/uL (0.0-0.2); BASO % 0.5 % (0.0-2.0); EOS # 0.4 K/uL (0.0-0.7); EOS % 3.4 % (0.0-4.0); HEMOGLOBIN 11.2 g/dL (11.0-16.0); LYMPH # 2.2 K/uL (1.0-4.3); LYMPH % 21.1 % (20.0-40.0); MEAN CELL VOLUME 96.8 fL (81.0-99.0); MEAN CORPUSCULAR HEMOGLOBIN 32.2 pg (27.0-31.0); MEAN CORPUSCULAR HGB CONC 33.3 g/dL (33.0-37.0); MEAN PLATELET VOLUME 8.7 fL (7.2-11.7); MONO # 0.8 K/uL (0.0-0.8); MONO % 7.8 % (0.0-10.0); NEUT % 67.2 % (50.0-75.0); NRBC % 0.1 % (0.0-2.0); RBC 3.46 Mil/uL (3.80-5.20); RED CELL DISTRIBUTION WIDTH 14.5 % (11.5-14.5); WHITE BLOOD COUNT 10.5 K/uL (4.8-10.8)
[2018-09-11 15:32] LABS: INR 1.1; PARTIAL THROMBOPLASTIN TIME 23.6 SECONDS (21-34); PROTHROMBIN TIME 11.6 SECONDS (9.7-12.2)
[2018-09-11 15:42] LABS: ALB/GLOB RATIO 1.1 (1.0-2.1); ALBUMIN 4.5 g/dL (3.5-5.0); ALT/SGPT < 6 U/L (9-52); AST/SGOT 44 U/L (14-36); BLOOD UREA NITROGEN 25 mg/dL (7-17); CALCIUM 9.8 mg/dl (8.6-10.4); GFR NON-AFRICAN AMERICAN 53
[2018-09-11 15:43] LABS: VENOUS BLOOD GAS BASE EXCESS 2.4 mmol/L (0.0-2.0); VENOUS BLOOD GAS PCO2 60 mmHg (40-60); VENOUS BLOOD GAS PO2 19 mm/Hg (30-55); VENOUS BLOOD PH 7.31 (7.32-7.43)
[2018-09-11 16:28] LABS: SQUAMOUS EPITHIAL 8 /hpf (0-5); URINE BILIRUBIN NEGATIVE (NEGATIVE); URINE BLOOD 1+ (NEGATIVE); URINE CLARITY Turbid (Clear); URINE COLOR Yellow (YELLOW); URINE GLUCOSE (UA) 1+ mg/dL (Normal); URINE LEUKOCYTE ESTERASE 3+ Leu/uL (Negative); URINE PROTEIN 1+ mg/dL (NEGATIVE); URINE UROBILINOGEN NORMAL mg/dL (0.2-1.0); WBC CLUMPS MANY /hpf
--- NOTE | 2018-09-11 17:04 | RAD ---
Date of service: 09/11/2018 PROCEDURE: CHEST RADIOGRAPH, 1 VIEW HISTORY: AMS COMPARISON: 05/09/2017. FINDINGS: LUNGS: The lungs are well inflated and clear. PLEURA: No pneumothorax or pleural effusion. CARDIOVASCULAR: The heart is normal in size. No aortic atherosclerotic calcifications present. OSSEOUS STRUCTURES: Within normal limits for the patient's age. VISUALIZED UPPER ABDOMEN: Normal. OTHER FINDINGS: None. IMPRESSION: No active pulmonary disease.
[2018-09-11] MEDS ORDERED: Piperacillin/Tazobact 3.375 gm 100 ML IV STA (17:07)
[2018-09-11] MEDS ORDERED: Vancomycin 1 GM 1 GM/250 ML BAG IV STA (17:07)
--- NOTE | 2018-09-11 17:11 | C.PDOC ---
History Of Present Illness Patient is a 82 year old female, with a PMHx of stent in the left leg by , who presents to the ED from the skilled nursing for pain and worsening gangrenous left 4th toe as per skilled nursing notes. Patient was being treated by Dr. Gambino who recommended patient to come to the ED for further evaluation. According to family, Brabie Brambila (daughter), patient has a worsening wound to sacrum and thinks she may have a UTI due to altered mental status and patient not being at baseline. Daughter denies any fever, falls, CP, or SOB. Time Seen by Provider: 09/11/18 13:17 Chief Complaint (Nursing): Lower Extremity Problem/Injury History Per: Patient History/Exam Limitations: no limitations Onset/Duration Of Symptoms: Days Current Symptoms Are (Timing): Still Present Recent travel outside of the [place]: No Additional History Per: Patient, Family Past Medical History Reviewed: Historical Data, Nursing Documentation, Vital Signs Vital Signs: Last Vital Signs Temp 98.0 F 09/11/18 15:42 Pulse 98 H 09/11/18 15:42 Resp 18 09/11/18 15:42 BP 136/92 H 09/11/18 15:42 Pulse Ox 97 09/11/18 15:42 Primary Care Provider: Non [facility] Provider, - Medical History PMH: Arthritis (B/L KNEE R >L), 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), Dementia, Depression (sigle episode), Diabetes, HTN, Hypercholesterolemia, Hyperlipidemia, Osteoporosis, Parkinson's Disease, Rheumatoid Arthritis Denies: Chronic Kidney Disease Surgical History: No Surg Hx - [facility] Procedures DILATION OF LEFT ANTERIOR TIBIAL ARTERY, PERC APPROACH (08/17/18) DILATION OF LEFT FEMORAL ARTERY, PERCUTANEOUS APPROACH (08/17/18) DILATION OF LEFT POPLITEAL ARTERY, PERCUTANEOUS APPROACH (08/17/18) EXTIRPATION OF MATTER FROM L FEM ART, PERC APPROACH (08/17/18) EXTIRPATION OF MATTER FROM L POPL ART, PERC APPROACH (08/17/18) FLUOROSCOPY OF AORTA AND BILATERAL LOWER EXTREMITY ARTERIES (08/17/18) PLICATION OF VENA CAVA (02/28/14) Family History: States: Unknown Family Hx - Social History Hx Tobacco Use: No Hx Alcohol Use: No Hx Substance Use: No - Immunization History Hx Tetanus Toxoid Vaccination: No Hx Influenza Vaccination: Yes Hx Pneumococcal Vaccination: Yes Review Of Systems Except As Marked, All Systems Reviewed And Found Negative. Constitutional: Negative for: Fever Cardiovascular: Negative for: Chest Pain Respiratory: Negative for: Shortness of Breath Musculoskeletal: Positive for: Foot Pain (painful and gangrenous left 4th toe ) Neurological: Positive for: Altered Mental Status Physical Exam - Physical Exam Appears: Non-toxic, No Acute Distress, Other (obese elderly female) Skin: Warm, Dry, Other (3 to 4cm area sacral decubitus ulcer stage 2 skin breakdown and erythema ) Head: Atraumatic, Normacephalic Oral Mucosa: Moist Chest: Symmetrical, No Deformity Cardiovascular: Rhythm Regular, No Murmur Respiratory: Normal Breath Sounds, No Rales, No Rhonchi, No Wheezing Gastrointestinal/Abdominal: Soft, No Tenderness Extremity: No Pedal Edema, Other (left 4th toe gangrenous ) ED Course And Treatment - Laboratory Results Result Diagrams: 09/11/18 15:08 09/14/18 06:31 Lab Results: pO2 19 mm/Hg (30-55) L 09/11/18 15:38 VBG pH 7.31 (7.32-7.43) L 09/11/18 15:38 VBG pCO2 60 mmHg (40-60) 09/11/18 15:38 VBG HCO3 24.8 mmol/L 09/11/18 15:38 VBG Total CO2 32.0 mmol/L (22-28) H 09/11/18 15:38 VBG O2 Sat (Calc) 27.0 % (40-65) L 09/11/18 15:38 VBG Base Excess 2.4 mmol/L (0.0-2.0) H 09/11/18 15:38 VBG Potassium 4.4 mmol/L (3.6-5.2) 09/11/18 15:38 Sodium 138.0 mmol/l (132-148) 09/11/18 15:38 Chloride 102.0 mmol/L (98-107) 09/11/18 15:38 Glucose 223 mg/dl (65-105) H 09/11/18 15:38 Lactate 2.0 mmol/L (0.7-2.1) 09/11/18 15:38 PT 11.6 SECONDS (9.7-12.2) 09/11/18 15:15 INR 1.1 09/11/18 15:15 APTT 23.6 SECONDS (21-34) 09/11/18 15:15 Total Bilirubin 0.8 mg/dL (0.2-1.3) 09/11/18 15:08 AST 44 U/L (14-36) H D 09/11/18 15:08 ALT < 6 U/L (9-52) L D 09/11/18 15:08 Alkaline Phosphatase 107 U/L (38-126) 09/11/18 15:08 Total Protein 8.4 g/dL (6.3-8.3) H 09/11/18 15:08 Albumin 4.5 g/dL (3.5-5.0) 09/11/18 15:08 Globulin 3.9 gm/dL (2.2-3.9) 09/11/18 15:08 Albumin/Globulin Ratio 1.1 (1.0-2.1) 09/11/18 15:08 Urine Color Yellow (YELLOW) 09/11/18 16:20 Urine Clarity Turbid (Clear) 09/11/18 16:20 Urine pH 5.0 (5.0-8.0) 09/11/18 16:20 Ur Specific [place] 1.015 (1.003-1.030) 09/11/18 16:20 Urine Protein 1+ mg/dL (NEGATIVE) H 09/11/18 16:20 Urine Glucose (UA) 1+ mg/dL (Normal) 09/11/18 16:20 Urine Ketones Negative mg/dL (NEGATIVE) 09/11/18 16:20 Urine Blood 1+ (NEGATIVE) H 09/11/18 16:20 Urine Nitrate Negative (NEGATIVE) 09/11/18 16:20 Urine Bilirubin Negative (NEGATIVE) 09/11/18 16:20 Urine Urobilinogen Normal mg/dL (0.2-1.0) 09/11/18 16:20 Ur Leukocyte Esterase 3+ Rosi/uL (Negative) H 09/11/18 16:20 Urine WBC (Auto) 3125 /hpf (0-5) H 09/11/18 16:20 Urine RBC (Auto) 12 /hpf (0-3) H 09/11/18 16:20 Urine WBC Clumps (Auto) Many /hpf (NONE) H 09/11/18 16:20 Ur Squamous Epith Cells 8 /hpf (0-5) H 09/11/18 16:20 O2 Sat by Pulse Oximetry: 97 (on RA) Pulse Ox Interpretation: Normal - Other Rad CXR X-Ray: Viewed By Me, Read By Radiologist Interpretation: Date of service: 09/11/2018. PROCEDURE: CHEST RADIOGRAPH, 1 VIEW. HISTORY: AMS. COMPARISON: 05/09/2017. FINDINGS: LUNGS: The lungs are well inflated and clear. PLEURA: No pneumothorax or pleural effusion. CARDIOVASCULAR: The heart is normal in size. No aortic atherosclerotic calcifications present. OSSEOUS STRUCTURES: Within normal limits for the patient's age. VISUALIZED UPPER ABDOMEN: Normal. OTHER FINDINGS: None. IMPRESSION: No active pulmonary disease. Medical Decision Making Medical Decision Making: Plan: VBG Labs CXR Blood Culture Urine Culture Wound Culture Zosyn 100ml IV Vancomycin 1gm in 250ml IV Case discussed with Dr. Amparo Franklin as per patient request. Agrees to admit patient to service. Patient found to have stage 2 decubitus ulcer to sacrum. Wound culture sent and patient will be admitted. Disposition - Disposition Disposition: HOSPITALIZED Disposition Time: 15:45 Condition: GUARDED - Clinical Impression Clinical Impression: Diabetes mellitus, UTI (urinary tract infection), Decubitus skin ulcer, Gangrene of toe - PA / [employer] / Resident Statement MD/DO has reviewed & agrees with the documentation as recorded. - Scribe Statement The provider has reviewed the documentation as recorded by the Randyibstefanie Ayoub All medical record entries made by the Scribe were at my direction and personally dictated by me. I have reviewed the chart and agree that the record accurately reflects my personal performance of the history, physical exam, medical decision making, and the department course for this patient. I have also personally directed, reviewed, and agree with the discharge instructions and dis position.
[2018-09-11] MEDS ORDERED: Piperacillin/Tazobact 3.375 gm 100 ML IVPB ONE (17:24)
[2018-09-11] MEDS ORDERED: Vancomycin 1 GM 1 GM/250 ML BAG IVPB ONE (17:24)
[2018-09-11] MEDS: DiphenhydrAMINE 50 mg/ml Inj IVP STA ×2 (19:31→20:05)
--- NOTE | 2018-09-11 19:57 | CP.PCM.HP ---
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 - INTEGUMENTARY Hx Dermatological Problems: No - MUSCULOSKELETAL/RHEUMATOLOGICAL Hx Arthritis: Yes (B/L KNEE R >L) Hx Osteoporosis: Yes Hx Rheumatoid Arthritis: Yes - GASTROINTESTINAL Hx Gastrointestinal Disorders: Yes Hx Constipation: Yes Hx Gastroesophageal Reflux: Yes - GENITOURINARY/GYNECOLOGICAL Hx Genitourinary Disorders: No - PSYCHIATRIC Hx Depression: Yes (sigle episode) Hx Substance Use: No - SURGICAL HISTORY Hx Surgeries: Yes Hx Vascular Surgery: Yes (brain aneurysm/ barricade coil system) Other/Comment: brain aneurysm/ barricade coil system - ANESTHESIA Hx Anesthesia: Yes Hx Anesthesia Reactions: No Hx Malignant Hyperthermia: No Meds Allergies/Adverse Reactions: Allergies Allergy/AdvReac Type Severity Reaction Status Date / Time No Known Allergies Allergy Verified 09/11/18 13:14 Results - Vital Signs Recent Vital Signs: Last Vital Signs Temp 98.8 F 09/11/18 19:32 Pulse 98 H 09/11/18 19:32 Resp 13 09/11/18 19:32 BP 116/65 09/11/18 19:32 Pulse Ox 94 L 09/11/18 19:32 - Labs Result Diagrams: 09/11/18 15:08 09/11/18 15:08 Labs: Laboratory Results - last 24 hr 09/11/18 09/11/18 09/11/18 14:36 15:08 15:08 WBC 10.5 RBC 3.46 L Hgb 11.2 Hct 33.5 L MCV 96.8 MCH 32.2 H MCHC 33.3 RDW 14.5 Plt Count 413 H D MPV 8.7 Neut % (Auto) 67.2 Lymph % (Auto) 21.1 [place] % (Auto) 7.8 Eos % (Auto) 3.4 Baso % (Auto) 0.5 Neut # (Auto) 7.0 Lymph # (Auto) 2.2 [place] # (Auto) 0.8 Eos # (Auto) 0.4 Baso # (Auto) 0.1 Differential Comment PT INR APTT pO2 VBG pH VBG pCO2 VBG HCO3 VBG Total CO2 VBG O2 Sat (Calc) VBG Base Excess VBG Potassium Glucose Lactate Sodium 139 Potassium 5.3 H Chloride 97 L Carbon Dioxide 29 Anion Gap 19 BUN 25 H Creatinine 1.0 Est GFR ( Amer) > 60 Est GFR (Non-Af Amer) 53 POC Glucose (mg/dL) 249 H Random Glucose 221 H Calcium 9.8 Total Bilirubin 0.8 AST 44 H D ALT < 6 L D Alkaline Phosphatase 107 Total Protein 8.4 H Albumin 4.5 Globulin 3.9 Albumin/Globulin Ratio 1.1 Venous Blood Potassium Urine Color Urine Clarity Urine pH Ur Specific [place] Urine Protein Urine Glucose (UA) Urine Ketones Urine Blood Urine Nitrate Urine Bilirubin Urine Urobilinogen Ur Leukocyte Esterase Urine WBC (Auto) Urine RBC (Auto) Urine WBC Clumps (Auto) Ur Squamous Epith Cells 09/11/18 09/11/18 09/11/18 15:15 15:38 16:20 WBC RBC Hgb Hct MCV MCH MCHC RDW Plt Count MPV Neut % (Auto) Lymph % (Auto) [place] % (Auto) Eos % (Auto) Baso % (Auto) Neut # (Auto) Lymph # (Auto) [place] # (Auto) Eos # (Auto) Baso # (Auto) Differential Comment PT 11.6 INR 1.1 APTT 23.6 pO2 19 L VBG pH 7.31 L VBG pCO2 60 VBG HCO3 24.8 VBG Total CO2 32.0 H VBG O2 Sat (Calc) 27.0 L VBG Base Excess 2.4 H VBG Potassium 4.4 Glucose 223 H Lactate 2.0 Sodium 138.0 Potassium Chloride 102.0 Carbon Dioxide Anion Gap BUN Creatinine Est GFR ( Amer) Est GFR (Non-Af Amer) POC Glucose (mg/dL) Random Glucose Calcium Total Bilirubin AST ALT Alkaline Phosphatase Total Protein Albumin Globulin Albumin/Globulin Ratio Venous Blood Potassium 4.4 Urine Color Yellow Urine Clarity Turbid Urine pH 5.0 Ur Specific [place] 1.015 Urine Protein 1+ H Urine Glucose (UA) 1+ Urine Ketones Negative Urine Blood 1+ H Urine Nitrate Negative Urine Bilirubin Negative Urine Urobilinogen Normal Ur Leukocyte Esterase 3+ H Urine WBC (Auto) 3125 H Urine RBC (Auto) 12 H Urine WBC Clumps (Auto) Many H Ur Squamous Epith Cells 8 H
[2018-09-11] MEDS: Piperacill/Tazo 2.25gm in Dex 2.25 GM/50 ML BAG IVPB SCH (20:00)
--- NOTE | 2018-09-11 20:17 | CP.PCM.CON ---
History of Present Illness - History of Present Illness History of Present Illness: Surgery Consult Note- Dr. Pearson Reason for Consult: hx of PVD, s/p Angio Catherization of LLE 82F pmxh significant for PVD s/p angio LLE cath w/ atherectomy and baloon angioplasty earlier this month. Patient presents to [facility] ED from half-way w/ worsening LLE foot pain, and increased discoloration of left 4th toe. During evaluation patient AAOx2 to person and place, easily re-orients to time. Denies fevers, chills, chest pain, shortness of breath, nausea, vomiting, diarrhea. PMH: Rheumatoid arthritis CVA, dementia, depression, DM, HTN, HLD, Osteoporosis, Parkinson's, RA, wheelchair bound, hx of falls PSH: IVC filter, hysterectomy, umbilical hernia repair, LLE Angio, cath of FA, aterectomy of SFA/POP/DCB, baloon angioplasty All: NKDA SH: Denies tobacco, ETOH or illicit drug use FH: non-contributory Review of Systems - Review of Systems All systems: reviewed and no additional remarkable complaints except - Constitutional Constitutional: As Per HPI 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 - INTEGUMENTARY Hx Dermatological Problems: No - MUSCULOSKELETAL/RHEUMATOLOGICAL Hx Arthritis: Yes (B/L KNEE R >L) Hx Osteoporosis: Yes Hx Rheumatoid Arthritis: Yes - GASTROINTESTINAL Hx Gastrointestinal Disorders: Yes Hx Constipation: Yes Hx Gastroesophageal Reflux: Yes - GENITOURINARY/GYNECOLOGICAL Hx Genitourinary Disorders: No - PSYCHIATRIC Hx Depression: Yes (sigle episode) Hx Substance Use: No - SURGICAL HISTORY Hx Surgeries: Yes Hx Vascular Surgery: Yes (brain aneurysm/ barricade coil system) Other/Comment: brain aneurysm/ barricade coil system - ANESTHESIA Hx Anesthesia: Yes Hx Anesthesia Reactions: No Hx Malignant Hyperthermia: No Meds Allergies/Adverse Reactions: Allergies Allergy/AdvReac Type Severity Reaction Status Date / Time No Known Allergies Allergy Verified 09/11/18 13:14 - Medications Medications: Current Medications Aspirin (Aspirin) 325 mg PO DAILY [facility] Carbidopa/Levodopa (Sinemet 10/100) 1 tab PO BID [facility] Clopidogrel Bisulfate (Plavix) 75 mg PO DAILY [facility] Digoxin (Digoxin) 0.125 mg PO DAILY@1800 [facility] Dorzolamide HCl (Trusopt) 0 ml OU BID [facility] Piperacillin Sod/Tazobactam Sod (Zosyn 2.25 Gm Iv Premix) 2.25 gm in 50 mls @ 100 mls/hr IVPB Q6 [facility]; Protocol Vancomycin HCl 1 gm/ Sodium (Chloride) 250 mls @ 167 mls/hr IVPB Q24H [facility]; Protocol Insulin Aspart (Novolog) 26 unit SC ACHS [facility] Insulin Detemir (Levemir) 26 unit SC Q12 [facility] Metformin HCl (Glucophage Xr) 500 mg PO BID [facility] Metoprolol Tartrate (Lopressor) 25 mg PO BID [facility] Nateglinide (Starlix) 120 mg PO TID [facility] Rosuvastatin Calcium (Crestor) 20 mg PO HS [facility] Sennosides (Senokot Tab) 1 mg PO HS [facility] Sitagliptin Phosphate (Januvia) 25 mg PO DAILY [facility] Timolol Maleate (Timoptic 0.5% Ophth Soln) 0 drop OU BID [facility] Physical Exam - Constitutional Appears: Non-toxic, No Acute Distress, Chronically Ill - Head Exam Head Exam: ATRAUMATIC - Eye Exam Eye Exam: EOMI. absent: Scleral icterus - ENT Exam ENT Exam: Mucous Membranes Moist - Respiratory Exam Respiratory Exam: NORMAL BREATHING PATTERN. absent: Accessory Muscle Use, Respiratory Distress - Cardiovascular Exam Cardiovascular Exam: REGULAR RHYTHM. absent: Bradycardia, Tachycardia - GI/Abdominal Exam GI & Abdominal Exam: Soft. absent: Distended, Firm, Guarding, Hernia, Rebound, Rigid, Tenderness - Extremities Exam Additional comments: LLE foot dark. Warm. strong palpable pulses DP LLE. full ROM - Neurological Exam Neurological exam: Alert, Oriented x3 - Psychiatric Exam Psychiatric exam: Normal Affect - Skin Skin Exam: Intact, Warm Results - Vital Signs Recent Vital Signs: Last Vital Signs Temp 98.8 F 09/11/18 19:32 Pulse 98 H 09/11/18 19:32 Resp 13 09/11/18 19:32 BP 116/65 09/11/18 19:32 Pulse Ox 94 L 09/11/18 19:32 - Labs Result Diagrams: 09/11/18 15:08 09/11/18 15:08 Labs: Laboratory Results - last 24 hr 09/11/18 09/11/18 09/11/18 14:36 15:08 15:08 WBC 10.5 RBC 3.46 L Hgb 11.2 Hct 33.5 L MCV 96.8 MCH 32.2 H MCHC 33.3 RDW 14.5 Plt Count 413 H D MPV 8.7 Neut % (Auto) 67.2 Lymph % (Auto) 21.1 [place] % (Auto) 7.8 Eos % (Auto) 3.4 Baso % (Auto) 0.5 Neut # (Auto) 7.0 Lymph # (Auto) 2.2 [place] # (Auto) 0.8 Eos # (Auto) 0.4 Baso # (Auto) 0.1 Differential Comment PT INR APTT pO2 VBG pH VBG pCO2 VBG HCO3 VBG Total CO2 VBG O2 Sat (Calc) VBG Base Excess VBG Potassium Glucose Lactate Sodium 139 Potassium 5.3 H Chloride 97 L Carbon Dioxide 29 Anion Gap 19 BUN 25 H Creatinine 1.0 Est GFR ( Amer) > 60 Est GFR (Non-Af Amer) 53 POC Glucose (mg/dL) 249 H Random Glucose 221 H Calcium 9.8 Total Bilirubin 0.8 AST 44 H D ALT < 6 L D Alkaline Phosphatase 107 Total Protein 8.4 H Albumin 4.5 Globulin 3.9 Albumin/Globulin Ratio 1.1 Venous Blood Potassium Urine Color Urine Clarity Urine pH Ur Specific [place] Urine Protein Urine Glucose (UA) Urine Ketones Urine Blood Urine Nitrate Urine Bilirubin Urine Urobilinogen Ur Leukocyte Esterase Urine WBC (Auto) Urine RBC (Auto) Urine WBC Clumps (Auto) Ur Squamous Epith Cells 09/11/18 09/11/18 09/11/18 15:15 15:38 16:20 WBC RBC Hgb Hct MCV MCH MCHC RDW Plt Count MPV Neut % (Auto) Lymph % (Auto) [place] % (Auto) Eos % (Auto) Baso % (Auto) Neut # (Auto) Lymph # (Auto) [place] # (Auto) Eos # (Auto) Baso # (Auto) Differential Comment PT 11.6 INR 1.1 APTT 23.6 pO2 19 L VBG pH 7.31 L VBG pCO2 60 VBG HCO3 24.8 VBG Total CO2 32.0 H VBG O2 Sat (Calc) 27.0 L VBG Base Excess 2.4 H VBG Potassium 4.4 Glucose 223 H Lactate 2.0 Sodium 138.0 Potassium Chloride 102.0 Carbon Dioxide Anion Gap BUN Creatinine Est GFR ( Amer) Est GFR (Non-Af Amer) POC Glucose (mg/dL) Random Glucose Calcium Total Bilirubin AST ALT Alkaline Phosphatase Total Protein Albumin Globulin Albumin/Globulin Ratio Venous Blood Potassium 4.4 Urine Color Yellow Urine Clarity Turbid Urine pH 5.0 Ur Specific [place] 1.015 Urine Protein 1+ H Urine Glucose (UA) 1+ Urine Ketones Negative Urine Blood 1+ H Urine Nitrate Negative Urine Bilirubin Negative Urine Urobilinogen Normal Ur Leukocyte Esterase 3+ H Urine WBC (Auto) 3125 H Urine RBC (Auto) 12 H Urine WBC Clumps (Auto) Many H Ur Squamous Epith Cells 8 H Assessment & Plan - Assessment and Plan (Free Text) Assessment: 82F hx of PVD admitted for worsening left foot pain Plan: - s/p LLE angio catherization, atherectomy of SFA/POPDCB, baloon angioplasty of CAM on 08/20/18 - bounding DP pulses - No acute vascular surgery intervention indicated at this time - please re-consult as needed - discussed w/ Dr. Pearson Surgical Attending PGY2
[2018-09-11] MEDS ORDERED: (Novolog) Insulin Aspart, Recombinant 100 u/ml 10 ml vial SC SCH (22:00)
[2018-09-11] MEDS: Insulin Detemir 100 units/ml Vial (Levemir) SC SCH (22:17)
[2018-09-12] MEDS: Piperacill/Tazo 2.25gm in Dex 2.25 GM/50 ML BAG IVPB SCH ×4 (00:32→13:03)
[2018-09-12] MEDS: (Novolog) Insulin Aspart, Recombinant 100 u/ml 10 ml vial SC SCH ×4 (07:56→21:15)
[2018-09-12] MEDS ORDERED: PROTEIN SUPPLEMENT 15 GM PO SCH (10:00)
[2018-09-12] MEDS: Insulin Detemir 100 units/ml Vial (Levemir) SC SCH ×2 (10:22→22:21)
[2018-09-12 11:38] LABS: ALB/GLOB RATIO 1.2 (1.0-2.1); ALBUMIN 3.9 g/dL (3.5-5.0); ALT/SGPT 24 U/L (9-52); AST/SGOT 23 U/L (14-36); BLOOD UREA NITROGEN 17 mg/dL (7-17); CALCIUM 9.2 mg/dl (8.6-10.4); GFR NON-AFRICAN AMERICAN 60
[2018-09-12] MEDS: Dorzolamide 2% Opht Sol 10ml OU SCH ×2 (12:37→17:43)
[2018-09-12] MEDS: DiphenhydrAMINE 50 mg/ml Inj IVP SCH ×2 (13:10→22:22)
--- NOTE | 2018-09-12 13:48 | RAD ---
Date of service: 09/12/2018 PROCEDURE: Left Foot Radiographs. 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 TECHNIQUE: 3 views obtained. FINDINGS: Note the examination is slightly note that the study is slightly limited due to extension deformities the proximal phalanges and apparent slight hammertoe deformities at the DIP joints. BONES: No evidence of acute displaced fracture nor dislocation.. Evaluation 4th digit limited due to the aforementioned extension deformities. No definitive cortical destructive changes are identified. If cellulitis or early osteomyelitis suspected clinically recommend follow-up MRI. There are 2 in situ fixation screws traversing the proximal 1st metatarsal JOINTS: Followup MRI. Multi articular degenerative osteoarthritis. SOFT TISSUES: No obvious subcutaneous emphysema so far as can be seen OTHER FINDINGS: None. IMPRESSION: No acute fractures. No definitive cortical destructive changes seen on this limited study. Mild diffuse demineralization. Multi articular degenerative osteoarthritis. If cellulitis or early osteomyelitis suspected clinically recommend followup MRI Two in situ fixation screws proximal first metatarsal.
[2018-09-12] MEDS: Digoxin 125 mcg (0.125 mg) Tab PO SCH (17:42)
[2018-09-12] MEDS: Meropenem 500 MG in Sodium Chloride 0.9% 100 ML IVPB SCH (18:15)
--- NOTE | 2018-09-12 20:33 | CP.PCM.PN ---
Subjective - Date & Time of Evaluation Date of Evaluation: 09/12/18 - Subjective Subjective: patient examined today no nausea, no diarrhea, no fever, no dizziness, no vomiting no shortness of breath Objective - Vital Signs/Intake and Output Vital Signs (last 24 hours): Temp Pulse Resp BP Pulse Ox 98.1 F 85 20 121/68 95 09/12/18 16:00 09/12/18 16:00 09/12/18 16:00 09/12/18 16:00 09/12/18 16:00 Intake and Output: 09/12/18 09/13/18 18:59 06:59 Intake Total 500 Output Total 0 Balance 500 - Medications Medications: Current Medications Aspirin (Aspirin) 325 mg PO DAILY [facility] Last Admin: 09/12/18 10:20 Dose: 325 mg Carbidopa/Levodopa (Sinemet ) 1 tab PO BID [facility] Last Admin: 09/12/18 17:42 Dose: 1 tab Clopidogrel Bisulfate (Plavix) 75 mg PO DAILY [facility] Last Admin: 09/12/18 10:22 Dose: 75 mg Digoxin (Digoxin) 0.125 mg PO DAILY@1800 [facility] Last Admin: 09/12/18 17:42 Dose: 0.125 mg Diphenhydramine HCl (Benadryl) 25 mg IVP Q8 [facility] Last Admin: 09/12/18 13:10 Dose: 25 mg Dorzolamide HCl (Trusopt) 0 ml OU BID [facility] Last Admin: 09/12/18 17:43 Dose: 1 drop Heparin Sodium (Porcine) (Heparin) 5,000 units SC Q12 [facility] Last Admin: 09/12/18 10:22 Dose: 5,000 units Vancomycin HCl 1 gm/ Sodium (Chloride) 250 mls @ 167 mls/hr IVPB Q24H [facility]; Protocol Last Admin: 09/12/18 19:41 Dose: 167 mls/hr Meropenem 500 mg/ Sodium (Chloride) 100 mls @ 100 mls/hr IVPB Q8H [facility]; Protocol Last Admin: 09/12/18 18:15 Dose: 100 mls/hr Insulin Aspart (Novolog) 0 unit SC ACHS [facility]; Protocol Last Admin: 09/12/18 17:30 Dose: 2 unit Insulin Detemir (Levemir) 26 unit SC Q12 [facility] Last Admin: 09/12/18 10:22 Dose: 26 units Metformin HCl (Glucophage Xr) 500 mg PO BID [facility] Last Admin: 09/12/18 17:41 Dose: 500 mg Metoprolol Tartrate (Lopressor) 25 mg PO BID [facility] Last Admin: 09/12/18 17:41 Dose: 25 mg Morphine Sulfate (Morphine) 2 mg IVP Q4 PRN PRN Reason: Pain Nateglinide (Starlix) 120 mg PO TID [facility] Last Admin: 09/12/18 17:42 Dose: 120 mg Rosuvastatin Calcium (Crestor) 20 mg PO HS [facility] Last Admin: 09/11/18 22:18 Dose: 20 mg Sennosides (Senokot Tab) 8.6 mg PO [facility] Sitagliptin Phosphate (Januvia) 25 mg PO DAILY [facility] Last Admin: 09/12/18 10:20 Dose: 25 mg Timolol Maleate (Timoptic 0.5% Ophth Soln) 0 drop OU BID [facility] Last Admin: 09/12/18 17:40 Dose: 1 drop - Labs Labs: 09/11/18 15:08 09/12/18 11:10 PT 11.6 SECONDS (9.7-12.2) 09/11/18 15:15 INR 1.1 09/11/18 15:15 APTT 23.6 SECONDS (21-34) 09/11/18 15:15 - Constitutional Appears: Well - Head Exam Head Exam: ATRAUMATIC, NORMAL INSPECTION, NORMOCEPHALIC - Eye Exam Eye Exam: EOMI, Normal appearance, PERRL Pupil Exam: NORMAL ACCOMODATION, PERRL - ENT Exam ENT Exam: Mucous Membranes Moist, Normal Exam - Neck Exam Neck Exam: Full ROM, Normal Inspection. absent: Lymphadenopathy - Respiratory Exam Respiratory Exam: Decreased Breath Sounds - Cardiovascular Exam Cardiovascular Exam: REGULAR RHYTHM, +S1, +S2 - GI/Abdominal Exam GI & Abdominal Exam: Soft, Diminished Bowel Sounds - Rectal Exam Rectal Exam: Deferred - Neurological Exam Neurological Exam: Oriented x3 Assessment and Plan - Assessment and Plan (Free Text) Plan: medications reviewed labs reviewed vitals reviewed plan discussed with patient and family moderate complexity of care aspirin benadryl crestor digoxin glucophage xr heparin januvia levemir lopressor meropenem morphine novolog plavix senokot tab sinemet starlix timoptic trusopt vancomycin
--- NOTE | 2018-09-12 23:36 | CP.PCM.CON ---
History of Present Illness - History of Present Illness History of Present Illness: 82 year old female, with a PMHx of PVD requiring stent in the left leg presents to the ED from the snf for pain and worsening gangrenous left 4th toe s. Patient was being treated by Dr. Gambino who recommended patient to come to the ED for further evaluation. In addition pt has sacral wound from snf as well as UTI ID consukted for this - Medical History PMH: Arthritis (B/L KNEE R >L), CVA (avm ), Dementia, Depression (sigle episode), Diabetes, HTN, Hypercholesterolemia, Hyperlipidemia, Osteoporosis, Parkinson's Disease, Rheumatoid Arthritis Denies: Chronic Kidney Disease Surgical History: No Surg Hx - [facility] Procedures DILATION OF LEFT ANTERIOR TIBIAL ARTERY, PERC APPROACH (08/17/18) DILATION OF LEFT FEMORAL ARTERY, PERCUTANEOUS APPROACH (08/17/18) DILATION OF LEFT POPLITEAL ARTERY, PERCUTANEOUS APPROACH (08/17/18) EXTIRPATION OF MATTER FROM L FEM ART, PERC APPROACH (08/17/18) EXTIRPATION OF MATTER FROM L POPL ART, PERC APPROACH (08/17/18) FLUOROSCOPY OF AORTA AND BILATERAL LOWER EXTREMITY ARTERIES (08/17/18) PLICATION OF VENA CAVA (02/28/14) PMH: Rheumatoid arthritis CVA, dementia, depression, DM, HTN, HLD, Osteoporosis, Parkinson's, RA, wheelchair bound, hx of falls PSH: IVC filter, hysterectomy, umbilical hernia repair All: NKDA SH: Denies tobacco, ETOH or illicit drug use FH: Father had CVA Review of Systems - Review of Systems Systems not reviewed;Unavailable: Altered Mental Status All systems: reviewed and no additional remarkable complaints except - Constitutional Constitutional: As Per HPI - EENT Eyes: absent: As Per HPI, Blind Spots, Blurred Vision, Change in Vision, Decreased Night Vision, Diplopia, Discharge, Dry Eye, Exophthalmos, Floaters, Irritation, Itchy Eyes, Loss of Peripheral Vision, Pain, Photophobia, Requires Corrective Lenses, Sees Flashes, Spots in Vision, Tunnel Vision, Other Visual Disturbances, Loss of Vision, Other Ears: absent: As Per HPI, Decreased Hearing, Ear Discharge, Ear Pain, Tinnitus, Abnormal Hearing, Disequilibrium, Dizziness, Other Nose/Mouth/Throat: absent: As Per HPI, Epistaxis, Nasal Congestion, Nasal Discharge, Nasal Obstruction, Nasal Trauma, Nose Pain, Post Nasal Drip, Sinus Pain, Sinus Pressure, Bleeding Gums, Change in Voice, Dental Pain, Dry Mouth, Dysphagia, Halitosis, Hoarsness, Lip Swelling, Mouth Lesions, Mouth Pain, Odynophagia, Sore Throat, Throat Swelling, Tongue Swelling, Facial Pain, Neck Pain, Neck Mass, Other - Breasts Breasts: absent: As Per HPI, Change in Shape, Mass, Pain, Nipple Discharge, Nipple Inversion, Skin Changes, Swelling, Other - Cardiovascular Cardiovascular: absent: As Per HPI, Acrocyanosis, Chest Pain, Chest Pain at Rest, Chest Pain with Activity, Claudication, Diaphoresis, Dyspnea, Dyspnea on Exertion, Edema, Irregular Heart Rhythm, Pain Radiating to Arm/Neck/Jaw, Leg Edema, Leg Ulcers, Lightheadedness, Orthopnea, Palpitations, Paroxysmal Nocturnal Dyspnea, Pedal Edema, Radiating Pain, Rapid Heart Rate, Slow Heart Rate, Syncope, Other - Respiratory Respiratory: absent: As Per HPI, Cough, Dyspnea, Hemoptysis, Dyspnea on Exertion, Wheezing, Snoring, Stridor, Pain on Inspiration, Chest Congestion, Excessive Mucous Production, Change in Mucous Color, Pain with Coughing, Other - Gastrointestinal Gastrointestinal: absent: As Per HPI, Abdominal Pain, Belching, Bloating, Change in Bowel Habits, Change in Stool Character, Coffee Ground Emesis, Constipation, Cramping, Diarrhea, Dyspepsia, Dysphagia, Early Satiety, Excessive Flatus, Fecal Incontinence, Heartburn, Hematemesis, Hematochezia, Loose Stools, Melena, Nausea, Odynophagia, Temesmus, Vomiting, Other - Genitourinary Genitourinary: absent: As Per HPI, Change in Urinary Stream, Difficulty Urinating, Dysuria, Flank Pain, Hematuria, Pyuria, Nocturia, Urinary Incontinence, Urinary Frequency, Urinary Hesitance, Urinary Urgency, Voiding Freq/Small Amts, Freq UTI, Hx Renal/Bladder Calculi, Hx /Renal Surgery, Bl adder Distension, Other - Reproductive: Female Reproductive:Female: absent: As Per HPI, Amenorrhea, Amenorrhea/ Control, Currently Menstual, Cycle <21 Days, Cycle >35 Days, Cycle Variable, Menses 1-7 Days, Menses >/= 8 Days, Menses Variable, Cycle > 4 Weeks Between, No Menses for 6 Months, Heavy Menses, Light Menses, Normal Menses, Spotting Between Cycles, S/P Hysterectomy, Menopausal, Post Menopausal, Premenarche, Abnormal Vaginal Bleeding, Dysmenorrhea, Dyspareunia, Genital Lesions, Genital Pruritis, Pelvic Pain, Prolapse Symptoms, Sexual Dysfunction, Vaginal Discharge, Vaginal Dryness, Vaginal Odor, Vaginal Pruritis, Other - Menstruation Menstruation: absent: As Per HPI, Amenorrhea, Amenorrhea/ Control, Currently Menstual, Cycle <21 Days, Cycle >35 Days, Cycle Variable, Menses 1-7 Days, Menses >/= 8 Days, Menses Variable, Cycle > 4 Weeks Between, No Menses for 6 Months, Heavy Menses, Light Menses, Normal Menses, Spotting Between Cycles, S/P Hysterectomy, Menopausal, Post Menopausal, Premenarche, Abnormal Vaginal Bleeding, Dysmenorrhea, Other - Musculoskeletal Musculoskeletal: As Per HPI - Integumentary Integumentary: As Per HPI, Skin Pain - Neurological Neurological: absent: As Per HPI, Abnormal Gait, Abnormal Hearing, Abnormal Movements, Abnormal Speech, Behavioral Changes, Burning Sensations, Confusion, Convulsions, Disequilibrium, Dizziness, Numbness, Focal Weakness, Frequent Falls, Headaches, Lack of Coordination, Loss of Vision, Memory Loss, Paresthesias, Radicular Pain, Restless Legs, Sensory Deficit, Syncope, Tingling, Tremor, Vertigo, Weakness, Other Visual Disturbances, Other - Psychiatric Psychiatric: absent: As Per HPI, Abnormal Sleep Pattern, Anhedonia, Anxiety, Auditory Hallucinations, Behavioral Changes, Change in Appetite, Change in Libido, Confusion, Depression, Difficulty Concentrating, Hallucinations, Ho micidal Ideation, Hopelessness, Irritability, Memory Loss, Mood Swings, Panic Attacks, Paranoia, Suicidal Ideation, Visual Hallucinations, Tactile Hallucinations, Other - Endocrine Endocrine: absent: As Per HPI, Change in Body Appearance, Change in Libido, Cold Intolorance, Deepening of Voice, Excessive Sweating, Fatigue, Flushing, Heat Intolorance, Increase in Ring/Shoe/Hat Size, Palpitations, Polydipsia, Polyphagia, Polyuria, Other - Hematologic/Lymphatic Hematologic: absent: As Per HPI, Easy Bleeding, Easy Bruising, Lymphadenopathy, Other 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 - INTEGUMENTARY Hx Dermatological Problems: No - MUSCULOSKELETAL/RHEUMATOLOGICAL Hx Arthritis: Yes (B/L KNEE R >L) Hx Falls: Yes Hx Osteoporosis: Yes Hx Rheumatoid Arthritis: Yes - GASTROINTESTINAL Hx Gastrointestinal Disorders: Yes Hx Constipation: Yes Hx Gastroesophageal Reflux: Yes - GENITOURINARY/GYNECOLOGICAL Hx Genitourinary Disorders: No - PSYCHIATRIC Hx Depression: Yes (sigle episode) Hx Substance Use: No - SURGICAL HISTORY Hx Surgeries: Yes Hx Vascular Surgery: Yes (brain aneurysm/ barricade coil system) Other/Comment: brain aneurysm/ barricade coil system - ANESTHESIA Hx Anesthesia: Yes Hx Anesthesia Reactions: No Hx Malignant Hyperthermia: No Meds Allergies/Adverse Reactions: Allergies Allergy/AdvReac Type Severity Reaction Status Date / Time No Known Allergies Allergy Verified 09/11/18 13:14 - Medications Medications: Current Medications Aspirin (Aspirin) 325 mg PO DAILY [facility] Carbidopa/Levodopa (Sinemet 10/100) 1 tab PO BID [facility] Clopidogrel Bisulfate (Plavix) 75 mg PO DAILY [facility] Digoxin (Digoxin) 0.125 mg PO DAILY@1800 [facility] Dorzolamide HCl (Trusopt) 0 ml OU BID [facility] Piperacillin Sod/Tazobactam Sod (Zosyn 2.25 Gm Iv Premix) 2.25 gm in 50 mls @ 100 mls/hr IVPB Q6 [facility]; Protocol Last Admin: 09/11/18 20:00 Dose: Not Given Vancomycin HCl 1 gm/ Sodium (Chloride) 250 mls @ 167 mls/hr IVPB Q24H [facility]; Protocol Insulin Aspart (Novolog) 0 unit SC ACHS [facility]; Protocol Insulin Detemir (Levemir) 26 unit SC Q12 [facility] Last Admin: 09/11/18 22:17 Dose: 26 units Metformin HCl (Glucophage Xr) 500 mg PO BID [facility] Metoprolol Tartrate (Lopressor) 25 mg PO BID [facility] Nateglinide (Starlix) 120 mg PO TID [facility] Rosuvastatin Calcium (Crestor) 20 mg PO HS [facility] Last Admin: 09/11/18 22:18 Dose: 20 mg Sennosides (Senokot Tab) 8.6 mg PO HS [facility] Sitagliptin Phosphate (Januvia) 25 mg PO DAILY [facility] Timolol Maleate (Timoptic 0.5% Ophth Soln) 0 drop OU BID [facility] Physical Exam - Constitutional Appears: No Acute Distress, Confused, Cachectic, Chronically Ill - Head Exam Head Exam: ATRAUMATIC, NORMAL INSPECTION, NORMOCEPHALIC - Eye Exam Eye Exam: EOMI, Normal appearance, PERRL Pupil Exam: NORMAL ACCOMODATION, PERRL - ENT Exam ENT Exam: Mucous Membranes Moist, Normal Exam - Neck Exam Neck exam: Positive for: Normal Inspection. Negative for: Lymphadenopathy - Respiratory Exam Respiratory Exam: Decreased Breath Sounds, Clear to Auscultation Bilateral, Prolonged Expiratory Phase - Cardiovascular Exam Cardiovascular Exam: REGULAR RHYTHM, +S1, +S2 - GI/Abdominal Exam GI & Abdominal Exam: Diminished Bowel Sounds, Distended, Hypoactive Bowel Sounds, Soft. absent: Tenderness - Rectal Exam Rectal Exam: Deferred - Exam Exam: NORMAL INSPECTION (x) - Extremities Exam Extremities exam: Positive for: normal inspection - Back Exam Back exam: NORMAL INSPECTION - Neurological Exam Neurological exam: Alert, CN II-XII Intact, Reflexes Normal Additional comments: infected left fourth toe - Psychiatric Exam Psychiatric exam: Normal Affect, Normal Mood - Skin Skin Exam: Dry, Intact, Normal Color, Warm Results - Vital Signs Recent Vital Signs: Last Vital Signs Temp 97.5 F L 09/11/18 20:20 Pulse 97 H 09/11/18 20:20 Resp 20 09/11/18 20:20 BP 132/74 09/11/18 20:20 Pulse Ox 96 09/11/18 20:20 - Labs Result Diagrams: 09/11/18 15:08 09/12/18 11:10 Labs: Laboratory Results - last 24 hr 09/11/18 09/11/18 09/11/18 14:36 15:08 15:08 WBC 10.5 RBC 3.46 L Hgb 11.2 Hct 33.5 L MCV 96.8 MCH 32.2 H MCHC 33.3 RDW 14.5 Plt Count 413 H D MPV 8.7 Neut % (Auto) 67.2 Lymph % (Auto) 21.1 Faulkner % (Auto) 7.8 Eos % (Auto) 3.4 Baso % (Auto) 0.5 Neut # (Auto) 7.0 Lymph # (Auto) 2.2 Fa[place]ner # (Auto) 0.8 Eos # (Auto) 0.4 Baso # (Auto) 0.1 Differential Comment PT INR APTT pO2 VBG pH VBG pCO2 VBG HCO3 VBG Total CO2 VBG O2 Sat (Calc) VBG Base Excess VBG Potassium Glucose Lactate Sodium 139 Potassium 5.3 H Chloride 97 L Carbon Dioxide 29 Anion Gap 19 BUN 25 H Creatinine 1.0 Est GFR ( Amer) > 60 Est GFR (Non-Af Amer) 53 POC Glucose (mg/dL) 249 H Random Glucose 221 H Calcium 9.8 Total Bilirubin 0.8 AST 44 H D ALT < 6 L D Alkaline Phosphatase 107 Total Protein 8.4 H Albumin 4.5 Globulin 3.9 Albumin/Globulin Ratio 1.1 Venous Blood Potassium Urine Color Urine Clarity Urine pH Ur Specific [place] Urine Protein Urine Glucose (UA) Urine Ketones Urine Blood Urine Nitrate Urine Bilirubin Urine Urobilinogen Ur Leukocyte Esterase Urine WBC (Auto) Urine RBC (Auto) Urine WBC Clumps (Auto) Ur Squamous Epith Cells 09/11/18 09/11/18 09/11/18 15:15 15:38 16:20 WBC RBC Hgb Hct MCV MCH MCHC RDW Plt Count MPV Neut % (Auto) Lymph % (Auto) Faulkner % (Auto) Eos % (Auto) Baso % (Auto) Neut # (Auto) Lymph # (Auto) Fa[place]ner # (Auto) Eos # (Auto) Baso # (Auto) Differential Comment PT 11.6 INR 1.1 APTT 23.6 pO2 19 L VBG pH 7.31 L VBG pCO2 60 VBG HCO3 24.8 VBG Total CO2 32.0 H VBG O2 Sat (Calc) 27.0 L VBG Base Excess 2.4 H VBG Potassium 4.4 Glucose 223 H Lactate 2.0 Sodium 138.0 Potassium Chloride 102.0 Carbon Dioxide Anion Gap BUN Creatinine Est GFR ( Amer) Est GFR (Non-Af Amer) POC Glucose (mg/dL) Random Glucose Calcium Total Bilirubin AST ALT Alkaline Phosphatase Total Protein Albumin Globulin Albumin/Globulin Ratio Venous Blood Potassium 4.4 Urine Color Yellow Urine Clarity Turbid Urine pH 5.0 Ur Specific [place] 1.015 Urine Protein 1+ H Urine Glucose (UA) 1+ Urine Ketones Negative Urine Blood 1+ H Urine Nitrate Negative Urine Bilirubin Negative Urine Urobilinogen Normal Ur Leukocyte Esterase 3+ H Urine WBC (Auto) 3125 H Urine RBC (Auto) 12 H Urine WBC Clumps (Auto) Many H Ur Squamous Epith Cells 8 H 09/11/18 21:42 WBC RBC Hgb Hct MCV MCH MCHC RDW Plt Count MPV Neut % (Auto) Lymph % (Auto) Faulkner % (Auto) Eos % (Auto) Baso % (Auto) Neut # (Auto) Lymph # (Auto) [place]ner # (Auto) Eos # (Auto) Baso # (Auto) Differential Comment PT INR APTT pO2 VBG pH VBG pCO2 VBG HCO3 VBG Total CO2 VBG O2 Sat (Calc) VBG Base Excess VBG Potassium Glucose Lactate Sodium Potassium Chloride Carbon Dioxide Anion Gap BUN Creatinine Est GFR ( Amer) Est GFR (Non-Af Amer) POC Glucose (mg/dL) 255 H Random Glucose Calcium Total Bilirubin AST ALT Alkaline Phosphatase Total Protein Albumin Globulin Albumin/Globulin Ratio Venous Blood Potassium Urine Color Urine Clarity Urine pH Ur Specific [place] Urine Protein Urine Glucose (UA) Urine Ketones Urine Blood Urine Nitrate Urine Bilirubin Urine Urobilinogen Ur Leukocyte Esterase Urine WBC (Auto) Urine RBC (Auto) Urine WBC Clumps (Auto) Ur Squamous Epith Cells Assessment & Plan (1) Altered mental status Status: Acute (2) Cellulitis and abscess of foot Status: Acute (3) Rheumatoid arthritis Status: Acute (4) Urinary tract infection Status: Acute (5) Diabetes mellitus Status: Chronic (6) History of dementia Status: Chronic - Assessment and Plan (Free Text) Assessment: cont wound care and IV rx await cultures may need surgical eval/ ? amputation
[2018-09-13] MEDS: Meropenem 500 MG in Sodium Chloride 0.9% 100 ML IVPB SCH ×3 (00:53→18:49)
--- NOTE | 2018-09-13 01:11 | CP.PCM.CON ---
History of Present Illness - History of Present Illness History of Present Illness: Podiatry Consult Note- Dr. Gambino 82 F seen and examined at bedside for left 4th digit gangrene. Patient is seen resting comfortably in bed, in NAD, and AA0x3. Patient is known to Dr. Gambino where he has treated her for gangrene of the 4th digit. 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 - INTEGUMENTARY Hx Dermatological Problems: No - MUSCULOSKELETAL/RHEUMATOLOGICAL Hx Arthritis: Yes (B/L KNEE R >L) Hx Falls: Yes Hx Osteoporosis: Yes Hx Rheumatoid Arthritis: Yes - GASTROINTESTINAL Hx Gastrointestinal Disorders: Yes Hx Constipation: Yes Hx Gastroesophageal Reflux: Yes - GENITOURINARY/GYNECOLOGICAL Hx Genitourinary Disorders: No - PSYCHIATRIC Hx Depression: Yes (sigle episode) Hx Substance Use: No - SURGICAL HISTORY Hx Surgeries: Yes Hx Vascular Surgery: Yes (brain aneurysm/ barricade coil system) Other/Comment: brain aneurysm/ barricade coil system - ANESTHESIA Hx Anesthesia: Yes Hx Anesthesia Reactions: No Hx Malignant Hyperthermia: No Meds Allergies/Adverse Reactions: Allergies Allergy/AdvReac Type Severity Reaction Status Date / Time No Known Allergies Allergy Verified 09/11/18 13:14 - Medications Medications: Current Medications Aspirin (Aspirin) 325 mg PO DAILY [facility] Last Admin: 09/12/18 10:20 Dose: 325 mg Carbidopa/Levodopa (Sinemet 10/100) 1 tab PO BID [facility] Last Admin: 09/12/18 17:42 Dose: 1 tab Clopidogrel Bisulfate (Plavix) 75 mg PO DAILY [facility] Last Admin: 09/12/18 10:22 Dose: 75 mg Digoxin (Digoxin) 0.125 mg PO DAILY@1800 [facility] Last Admin: 09/12/18 17:42 Dose: 0.125 mg Diphenhydramine HCl (Benadryl) 25 mg IVP Q8 [facility] Last Admin: 09/12/18 22:22 Dose: 25 mg Dorzolamide HCl (Trusopt) 0 ml OU BID [facility] Last Admin: 09/12/18 17:43 Dose: 1 drop Heparin Sodium (Porcine) (Heparin) 5,000 units SC Q12 [facility] Last Admin: 09/12/18 22:21 Dose: 5,000 units Vancomycin HCl 1 gm/ Sodium (Chloride) 250 mls @ 167 mls/hr IVPB Q24H [facility]; Protocol Last Admin: 09/12/18 19:41 Dose: 167 mls/hr Meropenem 500 mg/ Sodium (Chloride) 100 mls @ 100 mls/hr IVPB Q8H [facility]; Protocol Last Admin: 09/13/18 00:53 Dose: 100 mls/hr Insulin Aspart (Novolog) 0 unit SC ACHS [facility]; Protocol Last Admin: 09/12/18 21:15 Dose: Not Given Insulin Detemir (Levemir) 26 unit SC Q12 [facility] Last Admin: 09/12/18 22:21 Dose: 26 units Metformin HCl (Glucophage Xr) 500 mg PO BID [facility] Last Admin: 09/12/18 17:41 Dose: 500 mg Metoprolol Tartrate (Lopressor) 25 mg PO BID [facility] Last Admin: 09/12/18 17:41 Dose: 25 mg Morphine Sulfate (Morphine) 2 mg IVP Q4 PRN PRN Reason: Pain Nateglinide (Starlix) 120 mg PO TID [facility] Last Admin: 09/12/18 17:42 Dose: 120 mg Rosuvastatin Calcium (Crestor) 20 mg PO [facility] Last Admin: 09/12/18 22:22 Dose: 20 mg Sennosides (Senokot Tab) 8.6 mg PO [facility] Last Admin: 09/12/18 22:21 Dose: 8.6 mg Sitagliptin Phosphate (Januvia) 25 mg PO DAILY [facility] Last Admin: 09/12/18 10:20 Dose: 25 mg Timolol Maleate [facility]) 0 drop OU BID [facility] Last Admin: 09/12/18 17:40 Dose: 1 drop Physical Exam - Constitutional Appears: Well, Non-toxic, No Acute Distress - Extremities Exam Extremities exam: Negative for: calf tenderness Additional comments: VASC: DP and PT unpalpable, warmth to the left foot compare to the right foot, left foot cold, swelling noted to the left foot ORTHO: mild pain appreciated with palpation to the left 4th digit, MM is 4/5 in all four compartments, lack of movement to the 4th digit of left foot NEURO: gross sensation intact, protective sensation diminished DERM: gangrenous, necrotic 4th digit to the level distal to the 4th MPJ, appears slightly macerated in the 3rd interspace, no purulence noted during encounter, skin integrity is poor and necrotic, slight erythema surrounding necrotic digit, no abscess or fluctanance noted Results - Vital Signs Recent Vital Signs: Last Vital Signs Temp 98.1 F 09/12/18 16:00 Pulse 85 09/12/18 16:00 Resp 20 09/12/18 16:00 BP 121/68 09/12/18 16:00 Pulse Ox 95 09/12/18 16:00 - Labs Result Diagrams: 09/11/18 15:08 09/12/18 11:10 Labs: Laboratory Results - last 24 hr 09/12/18 09/12/18 09/12/18 06:38 11:10 11:10 ESR 53 H Sodium 136 Potassium 4.4 Chloride 97 L Carbon Dioxide 28 Anion Gap 15 BUN 17 Creatinine 0.9 Est GFR ( Amer) > 60 Est GFR (Non-Af Amer) 60 POC Glucose (mg/dL) 188 H Random Glucose 321 H D Calcium 9.2 Phosphorus 3.4 Magnesium 1.7 Total Bilirubin 0.4 AST 23 ALT 24 Alkaline Phosphatase 96 C-Reactive Protein 46.00 H Total Protein 7.0 Albumin 3.9 Globulin 3.2 Albumin/Globulin Ratio 1.2 09/12/18 16:15 ESR Sodium Potassium Chloride Carbon Dioxide Anion Gap BUN Creatinine Est GFR ( Amer) Est GFR (Non-Af Amer) POC Glucose (mg/dL) 246 H Random Glucose Calcium Phosphorus Magnesium Total Bilirubin AST ALT Alkaline Phosphatase C-Reactive Protein Total Protein Albumin Globulin Albumin/Globulin Ratio Assessment & Plan - Assessment and Plan (Free Text) Assessment: 82F with worsening gangrene to left foot 4th digit Plan: Patient seen and examined Discussed plan with Dr. Gambino in detail Cleanse ulceration with betadine, and dressed with dsd and cling X-rays reviewed Dr. Gambino plans on bringing patient to the OR Monday at 7:30am for amputation of left 4th digit secondary to worsening gangrenous changes Please provide medical optimization for surgery, thank you Please dispense multipodus boots Must be worn at all times while in bed Thank you for allowing us to participate in patient's care - Date & Time Date: 09/12/18 Time: 14:00
[2018-09-13] MEDS: DiphenhydrAMINE 50 mg/ml Inj IVP SCH ×3 (05:30→21:56)
[2018-09-13] MEDS: (Novolog) Insulin Aspart, Recombinant 100 u/ml 10 ml vial SC SCH ×4 (08:02→21:57)
[2018-09-13] MEDS: Dorzolamide 2% Opht Sol 10ml OU SCH ×2 (09:16→18:52)
[2018-09-13] MEDS: Insulin Detemir 100 units/ml Vial (Levemir) SC SCH ×2 (09:20→21:57)
--- NOTE | 2018-09-13 15:00 | CP.PCM.PN ---
Subjective - Date & Time of Evaluation Date of Evaluation: 09/13/18 - Subjective Subjective: patient seen and examined today no nausea no dizziness no fever no vomiting no diarrhea no shortness of breath Objective - Vital Signs/Intake and Output Vital Signs (last 24 hours): Temp Pulse Resp BP Pulse Ox 98.4 F 84 20 175/80 H 94 L 09/13/18 08:30 09/13/18 08:30 09/13/18 08:30 09/13/18 08:30 09/13/18 08:30 Intake and Output: 09/13/18 09/13/18 06:59 18:59 Intake Total 400 Balance 400 - Medications Medications: Current Medications Aspirin (Aspirin) 325 mg PO DAILY [facility] Last Admin: 09/13/18 09:15 Dose: 325 mg Carbidopa/Levodopa (Sinemet 10/) 1 tab PO BID [facility] Last Admin: 09/13/18 09:15 Dose: 1 tab Clopidogrel Bisulfate (Plavix) 75 mg PO DAILY [facility] Last Admin: 09/13/18 09:15 Dose: 75 mg Digoxin (Digoxin) 0.125 mg PO DAILY@1800 [facility] Last Admin: 09/12/18 17:42 Dose: 0.125 mg Diphenhydramine HCl (Benadryl) 25 mg IVP Q8 [facility] Stop: 09/15/18 06:01 Last Admin: 09/13/18 14:52 Dose: 25 mg Dorzolamide HCl (Trusopt) 0 ml OU BID [facility] Last Admin: 09/13/18 09:16 Dose: 1 drop Heparin Sodium (Porcine) (Heparin) 5,000 units SC Q12 [facility] Last Admin: 09/13/18 09:15 Dose: 5,000 units Vancomycin HCl 1 gm/ Sodium (Chloride) 250 mls @ 167 mls/hr IVPB Q24H [facility]; Protocol Last Admin: 09/12/18 19:41 Dose: 167 mls/hr Meropenem 500 mg/ Sodium (Chloride) 100 mls @ 100 mls/hr IVPB Q8H [facility]; Protocol Last Admin: 09/13/18 08:03 Dose: 100 mls/hr Insulin Aspart (Novolog) 0 unit SC ACHS [facility]; Protocol Last Admin: 09/13/18 12:11 Dose: 5 unit Insulin Detemir (Levemir) 26 unit SC Q12 [facility] Last Admin: 09/13/18 09:20 Dose: 26 units Metformin HCl (Glucophage Xr) 500 mg PO BID [facility] Last Admin: 09/13/18 09:14 Dose: 500 mg Metoprolol Tartrate (Lopressor) 25 mg PO BID [facility] Last Admin: 09/13/18 09:14 Dose: 25 mg Morphine Sulfate (Morphine) 2 mg IVP Q4 PRN PRN Reason: Pain Last Admin: 09/13/18 01:45 Dose: 2 mg Nateglinide (Starlix) 120 mg PO TID [facility] Last Admin: 09/13/18 14:53 Dose: Not Given Rosuvastatin Calcium (Crestor) 20 mg PO [facility] Last Admin: 09/12/18 22:22 Dose: 20 mg Sennosides (Senokot Tab) 8.6 mg PO [facility] Last Admin: 09/12/18 22:21 Dose: 8.6 mg Sitagliptin Phosphate (Januvia) 25 mg PO DAILY [facility] Last Admin: 09/13/18 09:15 Dose: 25 mg Timolol Maleate (Timoptic 0.5% Oph Soln) 0 drop OU BID [facility] Last Admin: 09/13/18 09:16 Dose: 1 drop - Labs Labs: 09/11/18 15:08 09/12/18 11:10 PT 11.6 SECONDS (9.7-12.2) 09/11/18 15:15 INR 1.1 09/11/18 15:15 APTT 23.6 SECONDS (21-34) 09/11/18 15:15 - Constitutional Appears: Well - Head Exam Head Exam: ATRAUMATIC, NORMAL INSPECTION, NORMOCEPHALIC - Eye Exam Eye Exam: EOMI, Normal appearance, PERRL Pupil Exam: NORMAL ACCOMODATION, PERRL - ENT Exam ENT Exam: Mucous Membranes Moist, Normal Exam - Neck Exam Neck Exam: Full ROM, Normal Inspection. absent: Lymphadenopathy - Respiratory Exam Respiratory Exam: Decreased Breath Sounds - Cardiovascular Exam Cardiovascular Exam: REGULAR RHYTHM, +S1, +S2 - GI/Abdominal Exam GI & Abdominal Exam: Soft, Diminished Bowel Sounds - Rectal Exam Rectal Exam: Deferred - Neurological Exam Neurological Exam: Oriented x3
--- NOTE | 2018-09-13 17:52 | CP.PCM.PCO ---
Addendum Addendum: 09/13/18 17:51 pt is an 82 yo f ho dm, htn, pe/dvt sP IVC, pvd sp angioplasty scheduled for toe amputation. please document medical optimization prior to procedure.
--- NOTE | 2018-09-13 17:53 | CP.PCM.PCO ---
Physician Communication Note - Physician Communication Note Physician Communication Note: medically cleared for OR tmw with acceptable risk as per
--- NOTE | 2018-09-13 17:58 | CP.PCM.PCO ---
Physician Communication Note - Physician Communication Note Physician Communication Note: Mild to moderate Cardiac risk for Toe Amputation under [place] bec.of MILD .
--- NOTE | 2018-09-13 18:18 | CP.PCM.PN ---
Subjective - Date & Time of Evaluation Date of Evaluation: 09/13/18 Time of Evaluation: 08:00 - Subjective Subjective: 82 year old female, with a PMHx of PVD requiring stent in the left leg [facility] and worsening gangrenous left 4th toe s. Patient was being treated by Dr. Gambino who recommended patient to come to the ED for further evaluation. In addition pt has sacral wound from shelter as well as UTI ID consted for this Objective - Vital Signs/Intake and Output Vital Signs (last 24 hours): Temp Pulse Resp BP Pulse Ox 98.2 F 89 18 111/68 95 09/13/18 16:00 09/13/18 16:00 09/13/18 16:00 09/13/18 16:00 09/13/18 16:00 Intake and Output: 09/13/18 09/13/18 06:59 18:59 Intake Total 400 Output Total 400 Balance 400 -400 - Medications Medications: Current Medications Aspirin (Aspirin) 325 mg PO DAILY [facility] Last Admin: 09/13/18 09:15 Dose: 325 mg Carbidopa/Levodopa (Sinemet 10/100) 1 tab PO BID [facility] Last Admin: 09/13/18 09:15 Dose: 1 tab Clopidogrel Bisulfate (Plavix) 75 mg PO DAILY [facility] Last Admin: 09/13/18 09:15 Dose: 75 mg Digoxin (Digoxin) 0.125 mg PO DAILY@1800 [facility] Last Admin: 09/12/18 17:42 Dose: 0.125 mg Diphenhydramine HCl (Benadryl) 25 mg IVP Q8 [facility] Stop: 09/15/18 06:01 Last Admin: 09/13/18 14:52 Dose: 25 mg Dorzolamide HCl (Trusopt) 0 ml OU BID [facility] Last Admin: 09/13/18 09:16 Dose: 1 drop Heparin Sodium (Porcine) (Heparin) 5,000 units SC Q12 [facility] Last Admin: 09/13/18 09:15 Dose: 5,000 units Vancomycin HCl 1 gm/ Sodium (Chloride) 250 mls @ 167 mls/hr IVPB Q24H [facility]; Protocol Last Admin: 09/12/18 19:41 Dose: 167 mls/hr Meropenem 500 mg/ Sodium (Chloride) 100 mls @ 100 mls/hr IVPB Q8H [facility]; Protocol Last Admin: 09/13/18 08:03 Dose: 100 mls/hr Insulin Aspart (Novolog) 0 unit SC ACHS [facility]; Protocol Last Admin: 09/13/18 12:11 Dose: 5 unit Insulin Detemir (Levemir) 26 unit SC Q12 [facility] Last Admin: 09/13/18 09:20 Dose: 26 units Metformin HCl (Glucophage Xr) 500 mg PO BID [facility] Last Admin: 09/13/18 09:14 Dose: 500 mg Metoprolol Tartrate (Lopressor) 25 mg PO BID [facility] Last Admin: 09/13/18 09:14 Dose: 25 mg Morphine Sulfate (Morphine) 2 mg IVP Q4 PRN PRN Reason: Pain Last Admin: 09/13/18 01:45 Dose: 2 mg Nateglinide (Starlix) 120 mg PO TID [facility] Last Admin: 09/13/18 14:53 Dose: Not Given Rosuvastatin Calcium (Crestor) 20 mg PO [facility] Last Admin: 09/12/18 22:22 Dose: 20 mg Sennosides (Senokot Tab) 8.6 mg PO [facility] Last Admin: 09/12/18 22:21 Dose: 8.6 mg Sitagliptin Phosphate (Januvia) 25 mg PO DAILY [facility] Last Admin: 09/13/18 09:15 Dose: 25 mg Timolol Maleate (Timoptic 0.5% Ophth Soln) 0 drop OU BID [facility] Last Admin: 09/13/18 09:16 Dose: 1 drop - Labs Labs: 09/11/18 15:08 09/12/18 11:10 PT 11.6 SECONDS (9.7-12.2) 09/11/18 15:15 INR 1.1 09/11/18 15:15 APTT 23.6 SECONDS (21-34) 09/11/18 15:15 - Constitutional Appears: Non-toxic - Head Exam Head Exam: ATRAUMATIC, NORMAL INSPECTION, NORMOCEPHALIC - Eye Exam Eye Exam: EOMI, Normal appearance, PERRL Pupil Exam: NORMAL ACCOMODATION, PERRL - ENT Exam ENT Exam: Mucous Membranes Moist, Normal Exam - Neck Exam Neck Exam: Full ROM, Normal Inspection. absent: Lymphadenopathy - Respiratory Exam Respiratory Exam: Clear to Ausculation Bilateral, NORMAL BREATHING PATTERN - Cardiovascular Exam Cardiovascular Exam: REGULAR RHYTHM, +S1, +S2. absent: Murmur - GI/Abdominal Exam GI & Abdominal Exam: Soft, Normal Bowel Sounds. absent: Tenderness - Rectal Exam Rectal Exam: Deferred - Exam Exam: NORMAL INSPECTION Bimanual exam: NORMAL BIMANUAL EXAM - Extremities Exam Extremities Exam: Full ROM, Normal Capillary Refill, Normal Inspection. absent: Joint Swelling, Pedal Edema - Back Exam Back Exam: NORMAL INSPECTION - Neurological Exam Neurological Exam: Alert, Awake, CN II-XII Intact, Normal Gait, Oriented x3 - Psychiatric Exam Psychiatric exam: Normal Affect, Normal Mood - Skin Skin Exam: Dry, Intact, Normal Color, Warm Assessment and Plan (1) Altered mental status Status: Acute (2) Cellulitis and abscess of foot Status: Acute (3) Rheumatoid arthritis Status: Acute (4) Urinary tract infection Status: Acute (5) Diabetes mellitus Status: Chronic (6) History of dementia Status: Chronic - Assessment and Plan (Free Text) Assessment: for possible amputation'cont iv rx
[2018-09-13] MEDS: Digoxin 125 mcg (0.125 mg) Tab PO SCH (18:50)
--- NOTE | 2018-09-13 21:19 | CP.PCM.CON ---
History of Present Illness - History of Present Illness History of Present Illness: see fully dictated consult 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 - INTEGUMENTARY Hx Dermatological Problems: No - MUSCULOSKELETAL/RHEUMATOLOGICAL Hx Arthritis: Yes (B/L KNEE R >L) Hx Falls: Yes Hx Osteoporosis: Yes Hx Rheumatoid Arthritis: Yes - GASTROINTESTINAL Hx Gastrointestinal Disorders: Yes Hx Constipation: Yes Hx Gastroesophageal Reflux: Yes - GENITOURINARY/GYNECOLOGICAL Hx Genitourinary Disorders: No - PSYCHIATRIC Hx Depression: Yes (sigle episode) Hx Substance Use: No - SURGICAL HISTORY Hx Surgeries: Yes Hx Vascular Surgery: Yes (brain aneurysm/ barricade coil system) Other/Comment: brain aneurysm/ barricade coil system - ANESTHESIA Hx Anesthesia: Yes Hx Anesthesia Reactions: No Hx Malignant Hyperthermia: No Meds Allergies/Adverse Reactions: Allergies Allergy/AdvReac Type Severity Reaction Status Date / Time No Known Allergies Allergy Verified 09/11/18 13:14 - Medications Medications: Current Medications Aspirin (Aspirin) 325 mg PO DAILY [facility] Last Admin: 09/13/18 09:15 Dose: 325 mg Betamethasone/Clotrimazole (Lotrisone) 0 gm TOP BID [facility] Carbidopa/Levodopa (Sinemet 10/100) 1 tab PO BID [facility] Last Admin: 09/13/18 18:50 Dose: 1 tab Clopidogrel Bisulfate (Plavix) 75 mg PO DAILY [facility] Last Admin: 09/13/18 09:15 Dose: 75 mg Digoxin (Digoxin) 0.125 mg PO DAILY@1800 [facility] Last Admin: 09/13/18 18:50 Dose: 0.125 mg Diphenhydramine HCl (Benadryl) 25 mg IVP Q8 [facility] Stop: 09/15/18 06:01 Last Admin: 09/13/18 14:52 Dose: 25 mg Dorzolamide HCl (Trusopt) 0 ml OU BID [facility] Last Admin: 09/13/18 18:52 Dose: 1 drop Heparin Sodium (Porcine) (Heparin) 5,000 units SC Q12 [facility] Last Admin: 09/13/18 09:15 Dose: 5,000 units Vancomycin HCl 1 gm/ Sodium (Chloride) 250 mls @ 167 mls/hr IVPB Q24H [facility]; Protocol Last Admin: 09/12/18 19:41 Dose: 167 mls/hr Meropenem 500 mg/ Sodium (Chloride) 100 mls @ 100 mls/hr IVPB Q8H [facility]; Protocol Last Admin: 09/13/18 18:49 Dose: 100 mls/hr Insulin Aspart (Novolog) 0 unit SC ACHS [facility]; Protocol Last Admin: 09/13/18 18:52 Dose: 2 unit Insulin Detemir (Levemir) 26 unit SC Q12 [facility] Last Admin: 09/13/18 09:20 Dose: 26 units Metformin HCl (Glucophage Xr) 500 mg PO BID [facility] Last Admin: 09/13/18 18:51 Dose: 500 mg Metoprolol Tartrate (Lopressor) 25 mg PO BID [facility] Last Admin: 09/13/18 18:50 Dose: 25 mg Morphine Sulfate (Morphine) 2 mg IVP Q4 PRN PRN Reason: Pain Last Admin: 09/13/18 01:45 Dose: 2 mg Nateglinide (Starlix) 120 mg PO TID [facility] Last Admin: 09/13/18 18:50 Dose: 120 mg Rosuvastatin Calcium (Crestor) 20 mg PO [facility] Last Admin: 09/12/18 22:22 Dose: 20 mg Sennosides (Senokot Tab) 8.6 mg PO [facility] Last Admin: 09/12/18 22:21 Dose: 8.6 mg Sitagliptin Phosphate (Januvia) 25 mg PO DAILY [facility] Last Admin: 09/13/18 09:15 Dose: 25 mg Timolol Maleate (Timoptic 0.5% Ophth Soln) 0 drop OU BID [facility] Last Admin: 09/13/18 18:51 Dose: 1 drop Results - Vital Signs Recent Vital Signs: Last Vital Signs Temp 98.2 F 09/13/18 16:00 Pulse 89 09/13/18 16:00 Resp 18 09/13/18 16:00 BP 111/68 09/13/18 16:00 Pulse Ox 95 09/13/18 16:00 - Labs Result Diagrams: 09/11/18 15:08 09/12/18 11:10 Labs: Laboratory Results - last 24 hr 09/12/18 09/12/18 09/13/18 12:20 21:00 06:36 POC Glucose (mg/dL) 291 H 254 H 213 H 09/13/18 12:03 POC Glucose (mg/dL) 351 H
[2018-09-14] MEDS: Meropenem 500 MG in Sodium Chloride 0.9% 100 ML IVPB SCH ×3 (00:51→17:34)
--- NOTE | 2018-09-14 04:12 | CON ---
DATE: 09/13/2018 CARDIOLOGY CONSULTATION REASON FOR CONSULTATION: Preoperative evaluation. The history was obtained from the patient's niece at the bedside. HISTORY OF PRESENT ILLNESS: The patient is an 82-year-old female who is a [facility], has a history of peripheral vascular disease, status post peripheral stenting to the left lower extremity, presented from the [facility] because of worsening gangrenous changes of the left fourth toe. The patient was recommended to be brought to the emergency room by her motorcoach driver. The patient denies any chest pain or shortness of breath. PAST MEDICAL HISTORY: History of CVA. Following that, the patient was placed in a [facility]. No known coronary intervention according to the patient's niece. MEDICATIONS: Current medications are aspirin 325 mg once a day, Benadryl 25 mg intravenously every 8 hours, digoxin 0.125 mg daily, Crestor 20 mg once a day, heparin 5000 units subcutaneously every 12 hours, Lopressor 25 mg twice a day, IV meropenem at 500 mg every 8 hours, Plavix 75 mg once a day, Sinemet one tablet b.i.d., vancomycin 1 g intravenously every 24 hours. REVIEW OF SYSTEMS: No retrosternal chest pain. No shortness of breath. PHYSICAL EXAMINATION: GENERAL: The patient is an elderly female who does not appear to be in any distress. VITAL SIGNS: Blood pressure 175/80, heart rate 84, temperature 98.4, and respirations 20. HEENT: Normocephalic. CHEST: Clear. HEART: S1 and S2, regular. ABDOMEN: Soft. EXTREMITIES: Dressing was applied to the left fourth toe. No pedal edema. LABORATORY DATA: Today's hemoglobin and hematocrit 11.1 and 33.5, white count 10.5 and platelet count 413,000. SMA-7: Sodium 136, potassium 4.4, chloride 97, CO2 of 28, glucose 321, BUN 17, and creatinine 0.9. PT, PTT, and INR are within normal limits. Preliminary review of the echocardiographic study revealed concentric LVH with normal ejection fraction, sclerotic aortic valve with mild aortic stenosis with a mean gradient of 12 mmHg. Reduced left ventricular diastolic compliance. The most recent EKG in the chart is from April 2017, which revealed sinus rhythm with minimal voltage criteria for LVH. ASSESSMENT: 1. Gangrenous changes of the left fourth toe. 2. Uncontrolled diabetes mellitus. 3. Hypertension. 4. History of cerebrovascular accident. 5. Mild aortic stenosis. 6. Reduced left ventricular diastolic compliance. RECOMMENDATIONS: Continue vancomycin 1 g intravenously daily, aspirin 325 mg once a day, Crestor 20 mg once a day, digoxin 0.125 mg daily. Continue Lopressor 25 mg twice a day. May hold subcutaneous heparin and Plavix on the patient's surgical intervention on the left fourth toe. I will obtain 12-lead EKG and if it is unremarkable for ischemic changes, the patient can undergo her left fourth toe surgery with [id number] cardiac risk. In the meantime, I will obtain serum digoxin level. Salo Armstrong MD
[2018-09-14] MEDS: DiphenhydrAMINE 50 mg/ml Inj IVP SCH ×3 (06:11→22:11)
--- NOTE | 2018-09-14 06:53 | PQF ---
PROVIDER RESPONSE TEXT: Metabolic Encephalopathy REVIEWER QUERY TEXT: Encephalopathy Type Encephalopathy is documented in the Medical Record. Please specify type Such as: The patient's Clinical Indicators include: ?82 year old female, with worsening gangrenous left 4th toe as per longterm notes. Patient was be ing treated by Dr. Gambino who recommended patient to come to the ED for further evaluation. According to family, Barbie Brambila (daughter), patient has a worsening wound to sacrum and thinks she may hav e a UTI due to altered mental status and patient not being at baseline?. LABS: WBC: 10.5 - RBC: 3.46 - HGB: 11.2 - HCT: 33.5 - PLT: 413 - Na: 139/136 - K: 5.3/4.4 - Chl: 97/9 7 - CO2: / - BUN: / - Crea: 1.0/0.9 - POC Glucose: 249/255/188/291LABS: WBC: 10.5 - RBC: 3.46 - HGB: 11.2 - HCT: 33.5 - PLT: 413 - Na: 139/136 - K: 5.3/4.4 - Chl: 97/97 - CO2: / - BUN: / - Crea: 1.0/0.9 - POC Glucose: 249/255/188/291. Urine Exam: Ur. WBC: 3125 - Ur. RBC: 12 - U. Leukocyte Esterase: 3+ - Ur. WBC Clumbs: Many. IMPRESSION: UTI Please consider verify AMS if can be document it as Encephalopathy, if agree. Query created by: Toribio Benavidez on 09/13/2018 4:47 PM Electronically signed by: Yu CATES 09/14/2018 6:50 AM
[2018-09-14 06:57] LABS: ALB/GLOB RATIO 1.4 (1.0-2.1); ALBUMIN 3.9 g/dL (3.5-5.0); ALT/SGPT 15 U/L (9-52); AST/SGOT 23 U/L (14-36); BLOOD UREA NITROGEN 15 mg/dL (7-17); GFR NON-AFRICAN AMERICAN > 60
[2018-09-14 07:19] LABS: INR 1.1; PARTIAL THROMBOPLASTIN TIME 28.1 SECONDS (21-34); PROTHROMBIN TIME 12.1 SECONDS (9.7-12.2)
[2018-09-14] MEDS ORDERED: Bupivacaine HCl 0.5% PF (10 ml) Inj ONE ×2 (07:23→07:24)
[2018-09-14] MEDS ORDERED: Lidocaine 2% MPF (5 ml) Inj ONE (07:24)
[2018-09-14] MEDS ORDERED: ceFAZolin 1 gm in NS 0 GM/0 ML BAG IVPB ONE (07:24)
[2018-09-14] MEDS: (Novolog) Insulin Aspart, Recombinant 100 u/ml 10 ml vial SC SCH ×4 (07:36→22:13)
[2018-09-14] MEDS ORDERED: HYDROmorphone 0.5 mg/0.5 ml ISec IVP PRN (08:37)
[2018-09-14] MEDS: Clotrimazole/Betamethasone Cream(15 gm) TOP SCH ×2 (09:00→18:35)
[2018-09-14] MEDS ORDERED: Oxycodone/Acetaminophen 5/325 mg Tab PO PRN (09:13)
--- NOTE | 2018-09-14 09:16 | PCM.SURG1 ---
Surgeon's Initial Post Op Note - Surgeon's Notes Surgeon: Dr. Gambino, DPM Orthopedic Shoe Fitter: Dr. Lauryn Mckenna, PGY1 Type of Anesthesia: IV Sedation, Local Anesthesia Administered By: Dr. Delgadillo Pre-Operative Diagnosis: Left foot 4th digit gangrene Operative Findings: See dictation. I: pre-op 20cc of 1:1 mixture of 2% Lidocaine and 0.5% Marcaine. intra-op 10 cc of 2% Lidocaine. M: 3-0 Nylon Post-Operative Diagnosis: same Operation Performed: Left foot 4th digit amputation Specimen/Specimens Removed: Left 4th digit, bone and soft tissue Estimated Blood Loss: EBL {In ML}: 10 Blood Products Given: N/A Drains Used: No Drains Post-Op Condition: Good Date of Surgery/Procedure: 09/14/18 Time of Surgery/Procedure: 09:16
--- NOTE | 2018-09-14 10:36 | CARD ---
APPROVED REPORT Date of service: 09/13/2018 EXAM: Two-dimensional and M-mode echocardiogram with Doppler and color Doppler. Other Information Technically limited study due to body habitus. INDICATION Pre-Op LV Function:Systolic RISK FACTORS Hypertension Hyperlipidemia Diabetes 2D DIMENSIONS IVSd1.6 (0.7-1.1cm)LVDd3.4 (3.9-5.9cm) LVOT Diameter2.0 (1.8-2.4cm)PWd1.1 (0.7-1.1cm) LA Oeugxa35 (18-58mL)LVDs2.3 (2.5-4.0cm) FS (%) 33.9 %LVEF (%)64.0 (>50%) LVEF (Frankel's)58.22 %IVC0.00 cm M-Mode DIMENSIONS Left Atrium (MM)2.49 (2.5-4.0cm)Aortic Root2.87 (2.2-3.7cm) Aortic Cusp Exc.1.33 (1.5-2.0cm) Aortic Valve AoV Peak Hdwptsff876.2cm/sAoV VTI44.1cmAO Peak GR.24mmHg LVOT Peak Slgdmhkb81.0cm/sLVOT VTI14.63cmAO Mean GR.12mmHg TIMMY (VMAX)1.30cm2 Mitral Valve MV E Mqflhqdy95.3cm/sMV A Qoopzkdt581.6cm/sE/A ratio0.7 YNRM207.04 cm/s TDI Lateral E' Peak V6.03cm/sMedial E' Peak V2.87cm/sE/Lateral E'11.2 E/Medial E'23.4 Tricuspid Valve TR Peak Sakfqutg333hb/sTR Peak Gr.24agRgPZTO03nmPw LEFT VENTRICLE The left ventricle is normal size. There is borderline concentric left ventricular hypertrophy. The left ventricular systolic function is normal. The left ventricular ejection fraction is within the normal range. There is normal LV segmental wall motion. Transmitral Doppler flow pattern is Grade I-abnormal relaxation pattern. RIGHT VENTRICLE The right ventricle is normal size. The right ventricular systolic function is normal. ATRIA The left atrium size is normal. The right atrium size is normal. AORTIC VALVE The aortic valve is moderately calcified and displays decreased opening. No aortic regurgitation is present. There is mild to moderate valvular aortic stenosis. Calculated aortic valve area is 1.3 cm2 with maximum pressure gradient of 24 mmHg and mean pressure gradient of 12 mmHg. MITRAL VALVE The mitral valve is normal in structure. Mitral regurgitation is trace to mild. TRICUSPID VALVE The tricuspid valve is normal in structure. There is trace to mild tricuspid regurgitation. There is no pulmonary hypertension. PULMONIC VALVE The pulmonary valve is normal in structure. There is mild pulmonic valvular regurgitation. GREAT VESSELS The aortic root is normal in size. The IVC is normal in size and collapses >50% with inspiration. PERICARDIAL EFFUSION There is no pericardial effusion. <Conclusion> There is borderline concentric left ventricular hypertrophy. The left ventricular systolic function is normal. There is normal LV segmental wall motion. Grade I diastolic dysfunction-abnormal relaxation pattern. The right ventricular systolic function is normal. There is mild to moderate valvular aortic stenosis. Mild by velocities and pressure gradients ---- Moderate by valve area Calculated aortic valve area is 1.3 cm2 with maximum pressure gradient of 24 mmHg and mean pressure gradient of 12 mmHg. Mid mitral, tricuspid and pulmonic regurgitation.. There is no pericardial effusion.
[2018-09-14] MEDS: Insulin Detemir 100 units/ml Vial (Levemir) SC SCH ×2 (12:12→22:12)
[2018-09-14] MEDS: Dorzolamide 2% Opht Sol 10ml OU SCH ×2 (12:12→18:36)
--- NOTE | 2018-09-14 12:24 | PCM.OP ---
Operative Report - Operative Report Date of Surgery/Procedure: 09/14/18 Time of Surgery/Procedure: 07:45 Surgeon: Dr. Maki DPM Leaf Conditioner Helper: Dr. Lauryn Mckenna PGY1 Anesthesia/Sedation: Rodo Delgadillo Pre-Operative Diagnosis: Left foot 4th digit gangrene Post-Operative Diagnosis: same as above Indication for Surgery: Indications: The patient is a 82 year old female with the above diagnoses. The patient has exhausted all conservative treatment at this time and now requires surgical intervention. The patient signed the consent after careful explanation of risks, benefits, complications and alternatives for surgical procedure. No guarantees were given nor implied. NPO status was confirmed prior to taking patient to the OR. Operative Findings: Preparation: The patient was brought in to the operating room and placed on the operating room table in a supine position. Timeout was performed for identification of the correct patient and procedure. The patient received a total of 20 cc of a 1:1 mix of 2% lidocaine plain and 0.5% Marcaine plain in a digital block fashion to the left foot 4th digit. The left foot was then prepped and draped in normal sterile manner and the procedure began. No tourniquet was used during the procedure. Procedure/Operation Description: Procedure: Anesthesia check was performed and additional 10 cc of 2% Lidocaine was injected to the 4th digit. Attention was then drawn to the dorsal aspect of the left foot 4th digit where a racquet type incision was made extending from the dorsal aspect of the 4th metatarsal head proximally going plantarly around the 4th digit using a #15 blade. The incision was then extended down through the subcutaneous layers down to the level of bone. Using a bone clamp to stabilize the toe, the 4th digit was then disarticulated from the foot at the level of the MPJ. All bone and soft tissue were sent for pathology at this time. We then copiously irrigated the wound with irricept. The surgical site was then closed with 3-0 Nylon at the level of the skin. Simple type sutures were performed. Surgical site was dressed with xeroform, 4x4 gauze, rosa and kerlix dressing with a light KRISTEL bandage. Estimated Blood Loss: 10 mL Complications: no complications Discharge & Condition: Postoperative Condition: The patient tolerated the local anesthesia and procedure well and was escorted to the recovery room with neurovascular status intact to the left foot. Patient is to remain weight bearing as tolerated at this time. Patient will remain in house and podiatry will continue to follow. Upon discharge, patient is to follow up in the wound care center with Dr. Gambino within one week of discharge.
--- NOTE | 2018-09-14 12:45 | CP.PCM.PN ---
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 Patient is seen resting comfortably in bed, in NAD. Patient denies of pain to the foot. Seen awake and enjoying breakfast. Dressing is clean dry and intact. No other pedal complaints. Denies nausea, fever, shortness of breath, chest pains or chills. Denies calf pain or tenderness. Objective - Vital Signs/Intake and Output Vital Signs (last 24 hours): Temp Pulse Resp BP Pulse Ox 98.4 F 86 95 H 103/62 99 09/14/18 10:00 09/14/18 11:24 09/14/18 11:24 09/14/18 11:24 09/14/18 10:00 Intake and Output: 09/14/18 09/14/18 06:59 18:59 Intake Total 100 700 Output Total 275 Balance -175 700 - Medications Medications: Current Medications Acetaminophen (Tylenol 325mg Tab) 650 mg PO Q6 PRN PRN Reason: Pain, Mild (1-3) Aspirin (Aspirin) 325 mg PO DAILY [facility] Last Admin: 09/14/18 12:13 Dose: 325 mg Betamethasone/Clotrimazole (Lotrisone) 0 gm TOP BID [facility] Carbidopa/Levodopa (Sinemet 10/100) 1 tab PO BID [facility] Last Admin: 09/14/18 12:13 Dose: 1 tab Clopidogrel Bisulfate (Plavix) 75 mg PO DAILY [facility] Last Admin: 09/14/18 12:13 Dose: 75 mg Digoxin (Digoxin) 0.125 mg PO DAILY@1800 [facility] Last Admin: 09/13/18 18:50 Dose: 0.125 mg Diphenhydramine HCl (Benadryl) 25 mg IVP Q8 [facility] Stop: 09/15/18 06:01 Last Admin: 09/14/18 06:11 Dose: 25 mg Dorzolamide HCl (Trusopt) 0 ml OU BID [facility] Last Admin: 09/14/18 12:12 Dose: 1 drop Heparin Sodium (Porcine) (Heparin) 5,000 units SC Q12 [facility] Last Admin: 09/13/18 09:15 Dose: 5,000 units Vancomycin HCl 1 gm/ Sodium (Chloride) 250 mls @ 167 mls/hr IVPB Q24H [facility]; Protocol Last Admin: 09/13/18 19:54 Dose: 167 mls/hr Meropenem 500 mg/ Sodium (Chloride) 100 mls @ 100 mls/hr IVPB Q8H [facility]; Protocol Last Admin: 09/14/18 08:19 Dose: 100 mls Insulin Aspart (Novolog) 0 unit SC ACHS [facility]; Protocol Last Admin: 09/14/18 12:13 Dose: 2 unit Insulin Detemir (Levemir) 26 unit SC Q12 [facility] Last Admin: 09/14/18 12:12 Dose: 26 units Metformin HCl (Glucophage Xr) 500 mg PO BID [facility] Last Admin: 09/14/18 12:13 Dose: 500 mg Metoprolol Tartrate (Lopressor) 25 mg PO BID [facility] Last Admin: 09/14/18 11:26 Dose: Not Given Morphine Sulfate (Morphine) 2 mg IVP Q4 PRN PRN Reason: Pain Last Admin: 09/13/18 01:45 Dose: 2 mg Nateglinide (Starlix) 120 mg PO TID [facility] Last Admin: 09/14/18 12:11 Dose: Not Given Oxycodone/Acetaminophen (Percocet 5/325 Mg Tab) 1 tab PO Q4H PRN PRN Reason: Pain, moderate (4-7) Stop: 09/17/18 09:14 Oxycodone/Acetaminophen (Percocet 5/325 Mg Tab) 2 tab PO Q4H PRN PRN Reason: Pain, severe (8-10) Stop: 09/17/18 09:14 Rosuvastatin Calcium (Crestor) 20 mg PO [facility] Last Admin: 09/13/18 21:56 Dose: 20 mg Sennosides (Senokot Tab) 8.6 mg PO [facility] Last Admin: 09/13/18 21:57 Dose: 8.6 mg Sitagliptin Phosphate (Januvia) 25 mg PO DAILY [facility] Last Admin: 09/14/18 12:12 Dose: 25 mg Timolol Maleate (Timoptic 0.5% Ophth Soln) 0 drop OU BID [facility] Last Admin: 09/14/18 12:12 Dose: 1 drop - Labs Labs: 09/11/18 15:08 09/14/18 06:31 PT 12.1 SECONDS (9.7-12.2) 05/31/19 05:48 INR 1.1 09/14/18 05:48 APTT 28.1 SECONDS (21-34) 09/14/18 05:48 - Constitutional Appears: Well - Head Exam Head Exam: ATRAUMATIC, NORMAL INSPECTION, NORMOCEPHALIC - Eye Exam Eye Exam: EOMI, Normal appearance, PERRL Pupil Exam: NORMAL ACCOMODATION, PERRL - ENT Exam ENT Exam: Mucous Membranes Moist, Normal Exam - Neck Exam Neck Exam: Full ROM, Normal Inspection. absent: Lymphadenopathy - Respiratory Exam Respiratory Exam: Clear to Ausculation Bilateral, NORMAL BREATHING PATTERN - Cardiovascular Exam Cardiovascular Exam: REGULAR RHYTHM, +S1, +S2. absent: Murmur - GI/Abdominal Exam GI & Abdominal Exam: Soft, Normal Bowel Sounds. absent: Tenderness - Rectal Exam Rectal Exam: Deferred - Extremities Exam Extremities Exam: Full ROM, Normal Capillary Refill, Pedal Edema, Tenderness. absent: Joint Swelling, Normal Inspection - Back Exam Back Exam: NORMAL INSPECTION - Neurological Exam Neurological Exam: Alert, Altered, Awake, CN II-XII Intact. 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 Patient is seen resting comfortably in bed, in NAD. Patient denies of pain to the foot. Seen awake and enjoying breakfast. Dressing is clean dry and intact. No other pedal complaints. Denies nausea, fever, shortness of breath, chest pains or chills. Denies calf pain or tenderness. Cont iv antibiotics min 7 days post op
--- NOTE | 2018-09-14 14:10 | CARD ---
APPROVED REPORT Date of service: 09/13/2018 EKG Measurement Heart [id number] CT [id number] <Conclusion> Normal sinus rhythm Moderate voltage criteria for LVH, may be normal variant Borderline ECG
--- NOTE | 2018-09-14 16:20 | RAD ---
Date of service: 09/14/2018 PROCEDURE: Left Foot Radiographs. HISTORY: s/p left foot 4th digit amputation COMPARISON: 09/12/2018 preoperative study. TECHNIQUE: 3 views obtained. FINDINGS: BONES: Status post amputation left 4th digit. Expected postoperative findings noted. Stable hardware related to the 1st metatarsal. Plantar and Achilles tendon insertion spurs. JOINTS: Multiple hammertoe deformities. SOFT TISSUES: Normal. OTHER FINDINGS: None. IMPRESSION: Satisfactory postoperative status.
--- NOTE | 2018-09-14 18:18 | PN ---
DATE: 09/14/2018 SUBJECTIVE: The patient underwent left fourth toe amputation. She denies any chest pain or shortness of breath at this time. PHYSICAL EXAMINATION: VITAL SIGNS: Blood pressure 103/62, heart rate 86, temperature 98.4, and respirations 15. HEENT: Normocephalic. CHEST: Clear. HEART: S1 and S2. Regular. EXTREMITIES: No edema. LABORATORY DATA: . Today's SMA-7; sodium 137, potassium 4.2, chloride 100, CO2 of 27, chloride is 172, BUN 15, and creatinine 0.8. ASSESSMENT: 1. Status post amputation of gangrenous left fourth toe. 2. Uncontrolled diabetes mellitus. 3. Hypertension. 4. History of cerebrovascular accident. 5. Mild aortic stenosis. 6. Diastolic left ventricular dysfunction. RECOMMENDATIONS: Continue aspirin 325 mg once a day, Crestor 20 mg once a day, digoxin 0.125 mg daily, Glucophage 500 mg twice a day, subcutaneous heparin 5000 units every 12 hours, Lopressor 25 mg twice a day, Plavix 75 mg once a day, and vancomycin 1 g intravenously daily. Obtain postoperative 12-lead EKG. Salo Armstrong MD
[2018-09-14] MEDS: Digoxin 125 mcg (0.125 mg) Tab PO SCH (18:41)
--- NOTE | 2018-09-14 19:49 | CP.PCM.PN ---
Subjective - Date & Time of Evaluation Date of Evaluation: 09/14/18 Objective - Vital Signs/Intake and Output Vital Signs (last 24 hours): Temp Pulse Resp BP Pulse Ox 97.8 F 102 H 20 125/75 97 09/14/18 15:19 09/14/18 15:19 09/14/18 15:19 09/14/18 15:19 09/14/18 19:03 Intake and Output: 09/14/18 09/15/18 18:59 06:59 Intake Total 700 Output Total 250 Balance 450 - Medications Medications: Current Medications Acetaminophen (Tylenol 325mg Tab) 650 mg PO Q6 PRN PRN Reason: Pain, Mild (1-3) Aspirin (Aspirin) 325 mg PO DAILY [facility] Last Admin: 09/14/18 12:13 Dose: 325 mg Betamethasone/Clotrimazole (Lotrisone) 0 gm TOP BID [facility] Last Admin: 09/14/18 18:35 Dose: 1 applic Carbidopa/Levodopa (Sinemet 10/100) 1 tab PO BID [facility] Last Admin: 09/14/18 18:37 Dose: 1 tab Clopidogrel Bisulfate (Plavix) 75 mg PO DAILY [facility] Last Admin: 09/14/18 12:13 Dose: 75 mg Digoxin (Digoxin) 0.125 mg PO DAILY@1800 [facility] Last Admin: 09/14/18 18:41 Dose: 0.125 mg Diphenhydramine HCl (Benadryl) 25 mg IVP Q8 [facility] Stop: 09/15/18 06:01 Last Admin: 09/14/18 13:35 Dose: 25 mg Dorzolamide HCl (Trusopt) 0 ml OU BID [facility] Last Admin: 09/14/18 18:36 Dose: 1 drop Heparin Sodium (Porcine) (Heparin) 5,000 units SC Q12 [facility] Last Admin: 09/13/18 09:15 Dose: 5,000 units Vancomycin HCl 1 gm/ Sodium (Chloride) 250 mls @ 167 mls/hr IVPB Q24H [facility]; Protocol Last Admin: 09/13/18 19:54 Dose: 167 mls/hr Meropenem 500 mg/ Sodium (Chloride) 100 mls @ 100 mls/hr IVPB Q8H [facility]; Protocol Last Admin: 09/14/18 17:34 Dose: 100 mls/hr Insulin Aspart (Novolog) 0 unit SC ACHS [facility]; Protocol Last Admin: 09/14/18 18:36 Dose: 1 unit Insulin Detemir (Levemir) 26 unit SC Q12 [facility] Last Admin: 09/14/18 12:12 Dose: 26 units Metformin HCl (Glucophage Xr) 500 mg PO BID [facility] Last Admin: 09/14/18 18:38 Dose: 500 mg Metoprolol Tartrate (Lopressor) 25 mg PO BID [facility] Last Admin: 09/14/18 11:26 Dose: Not Given Morphine Sulfate (Morphine) 2 mg IVP Q4 PRN PRN Reason: Pain Last Admin: 09/13/18 01:45 Dose: 2 mg Nateglinide (Starlix) 120 mg PO TID [facility] Last Admin: 09/14/18 18:37 Dose: 120 mg Oxycodone/Acetaminophen (Percocet 5/325 Mg Tab) 1 tab PO Q4H PRN PRN Reason: Pain, moderate (4-7) Stop: 09/17/18 09:14 Oxycodone/Acetaminophen (Percocet 5/325 Mg Tab) 2 tab PO Q4H PRN PRN Reason: Pain, severe (8-10) Stop: 09/17/18 09:14 Rosuvastatin Calcium (Crestor) 20 mg PO [facility] Last Admin: 09/13/18 21:56 Dose: 20 mg Sennosides (Senokot Tab) 8.6 mg PO [facility] Last Admin: 09/13/18 21:57 Dose: 8.6 mg Sitagliptin Phosphate (Januvia) 25 mg PO DAILY [facility] Last Admin: 09/14/18 12:12 Dose: 25 mg Timolol Maleate (Timoptic 0.5% Oph Soln) 0 drop OU BID [facility] Last Admin: 09/14/18 18:35 Dose: 1 drop - Labs Labs: 09/11/18 15:08 09/14/18 06:31 PT 12.1 SECONDS (9.7-12.2) 09/14/18 05:48 INR 1.1 09/14/18 05:48 APTT 28.1 SECONDS (21-34) 09/14/18 05:48
[2018-09-15] MEDS: Meropenem 500 MG in Sodium Chloride 0.9% 100 ML IVPB SCH ×3 (02:21→16:30)
[2018-09-15] MEDS: Oxycodone/Acetaminophen 5/325 mg Tab PO PRN ×2 (03:07→09:08)
[2018-09-15] MEDS: DiphenhydrAMINE 50 mg/ml Inj IVP SCH (05:49)
[2018-09-15] MEDS: (Novolog) Insulin Aspart, Recombinant 100 u/ml 10 ml vial SC SCH ×4 (07:57→21:36)
[2018-09-15] MEDS: Insulin Detemir 100 units/ml Vial (Levemir) SC SCH ×2 (09:04→22:00)
[2018-09-15] MEDS: Clotrimazole/Betamethasone Cream(15 gm) TOP SCH ×2 (09:09→18:17)
[2018-09-15] MEDS: Dorzolamide 2% Opht Sol 10ml OU SCH ×2 (09:09→18:17)
--- NOTE | 2018-09-15 09:43 | CP.PCM.PN ---
Subjective - Date & Time of Evaluation Date of Evaluation: 09/15/18 Time of Evaluation: 09:41 - Subjective Subjective: CHART REVIEWED. PT SEEN AND EXAMINED., COVERING DR Pedro COUCH. PT ALERT, MILD LEFT FOOT PAIN., NO SOB. EATING OK. ROS; OTHERWISE NEG. Objective - Vital Signs/Intake and Output Vital Signs (last 24 hours): Temp Pulse Resp BP Pulse Ox 98.9 F 103 H 20 171/89 H 94 L 09/15/18 08:23 09/15/18 08:23 09/15/18 08:23 09/15/18 08:23 09/15/18 08:23 - Medications Medications: Current Medications Acetaminophen (Tylenol 325mg Tab) 650 mg PO Q6 PRN PRN Reason: Pain, Mild (1-3) Last Admin: 09/14/18 22:48 Dose: 650 mg Aspirin (Aspirin) 325 mg PO DAILY [facility] Last Admin: 09/15/18 09:03 Dose: 325 mg Betamethasone/Clotrimazole (Lotrisone) 0 gm TOP BID [facility] Last Admin: 09/15/18 09:09 Dose: 1 applic Carbidopa/Levodopa (Sinemet 10/100) 1 tab PO BID [facility] Last Admin: 09/15/18 09:03 Dose: 1 tab Clopidogrel Bisulfate (Plavix) 75 mg PO DAILY [facility] Last Admin: 09/15/18 09:03 Dose: 75 mg Digoxin (Digoxin) 0.125 mg PO DAILY@1800 [facility] Last Admin: 09/14/18 18:41 Dose: 0.125 mg Dorzolamide HCl (Trusopt) 0 ml OU BID [facility] Last Admin: 09/15/18 09:09 Dose: 1 drop Heparin Sodium (Porcine) (Heparin) 5,000 units SC Q12 [facility] Last Admin: 09/13/18 09:15 Dose: 5,000 units Vancomycin HCl 1 gm/ Sodium (Chloride) 250 mls @ 167 mls/hr IVPB Q24H [facility]; Protocol Last Admin: 09/14/18 20:13 Dose: 167 mls/hr Meropenem 500 mg/ Sodium (Chloride) 100 mls @ 100 mls/hr IVPB Q8H [facility]; Protocol Last Admin: 09/15/18 07:59 Dose: 100 mls/hr Insulin Aspart (Novolog) 0 unit SC ACHS [facility]; Protocol Last Admin: 09/15/18 07:57 Dose: 2 unit Insulin Detemir (Levemir) 26 unit SC Q12 [facility] Last Admin: 09/15/18 09:04 Dose: 26 units Metformin HCl (Glucophage Xr) 500 mg PO BID [facility] Last Admin: 09/15/18 09:03 Dose: 500 mg Metoprolol Tartrate (Lopressor) 25 mg PO BID [facility] Last Admin: 09/15/18 09:08 Dose: 25 mg Morphine Sulfate (Morphine) 2 mg IVP Q4 PRN PRN Reason: Pain Last Admin: 09/13/18 01:45 Dose: 2 mg Nateglinide (Starlix) 120 mg PO TID [facility] Last Admin: 09/15/18 09:03 Dose: 120 mg Oxycodone/Acetaminophen (Percocet 5/325 Mg Tab) 1 tab PO Q4H PRN PRN Reason: Pain, moderate (4-7) Stop: 09/17/18 09:14 Last Admin: 09/15/18 09:08 Dose: 1 tab Oxycodone/Acetaminophen (Percocet 5/325 Mg Tab) 2 tab PO Q4H PRN PRN Reason: Pain, severe (8-10) Stop: 09/17/18 09:14 Rosuvastatin Calcium (Crestor) 20 mg PO [facility] Last Admin: 09/14/18 22:11 Dose: 20 mg Sennosides (Senokot Tab) 8.6 mg PO [facility] Last Admin: 09/14/18 22:11 Dose: 8.6 mg Sitagliptin Phosphate (Januvia) 25 mg PO DAILY [facility] Last Admin: 09/15/18 09:03 Dose: 25 mg Timolol Maleate (Timoptic 0.5% Ophth Soln) 0 drop OU BID [facility] Last Admin: 09/15/18 09:09 Dose: 1 drop - Labs Labs: 09/11/18 15:08 09/14/18 06:31 PT 12.1 SECONDS (9.7-12.2) 09/14/18 05:48 INR 1.1 09/14/18 05:48 APTT 28.1 SECONDS (21-34) 09/14/18 05:48 - Constitutional Appears: No Acute Distress, Chronically Ill - Head Exam Head Exam: ATRAUMATIC, NORMOCEPHALIC - Eye Exam Eye Exam: EOMI, Normal appearance - ENT Exam ENT Exam: Mucous Membranes Moist - Neck Exam Neck Exam: Normal Inspection - Respiratory Exam Respiratory Exam: Decreased Breath Sounds. absent: Respiratory Distress - Cardiovascular Exam Cardiovascular Exam: RRR, +S1, +S2 - GI/Abdominal Exam GI & Abdominal Exam: Soft. absent: Tenderness - Rectal Exam Rectal Exam: Deferred - Extremities Exam Extremities Exam: absent: Calf Tenderness Additional comments: LEFT FOOT DRESSING INTACT. - Back Exam Back Exam: absent: CVA tenderness (L), CVA tenderness (R) - Neurological Exam Neurological Exam: Alert, Awake, CN II-XII Intact - Psychiatric Exam Psychiatric exam: Normal Mood - Skin Skin Exam: absent: Rash Assessment and Plan (1) Gangrene of toe Status: Acute (2) Diabetes mellitus Status: Chronic (3) Cellulitis and abscess of foot Status: Acute (4) History of dementia Status: Chronic (5) Hypertension Status: Chronic (6) Parkinson disease Status: Acute - Assessment and Plan (Free Text) Assessment: RESP STATUS COMFORTABLE AT REST. CONT PULM TOILET,. MONITOR O2 SAT. CXR REVIEWED. AFEBRILE ON AB. CONT WOUND CARE, S/P LEFT TOE AMPUT. POD #1. DISCUSSED WITH STAFF AT LENGTH. TIME SPENT 40MIN
--- NOTE | 2018-09-15 10:32 | CP.PCM.PN ---
Subjective - Date & Time of Evaluation Date of Evaluation: 09/15/18 Time of Evaluation: 08:15 - Subjective Subjective: Podiatry Progress Note- Dr. 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 Patient is seen resting comfortably in bed, in NAD. Patient denies of pain to the foot. Seen awake and enjoying breakfast. Dressing is clean dry and intact. No other pedal complaints. Denies nausea, fever, shortness of breath, chest pains or chills. Denies calf pain or tenderness. Objective - Vital Signs/Intake and Output Vital Signs (last 24 hours): Temp Pulse Resp BP Pulse Ox 98.9 F 103 H 20 171/89 H 94 L 09/15/18 08:23 09/15/18 08:23 09/15/18 08:23 09/15/18 08:23 09/15/18 08:23 - Medications Medications: Current Medications Acetaminophen (Tylenol 325mg Tab) 650 mg PO Q6 PRN PRN Reason: Pain, Mild (1-3) Last Admin: 09/14/18 22:48 Dose: 650 mg Aspirin (Aspirin) 325 mg PO DAILY [facility] Last Admin: 09/15/18 09:03 Dose: 325 mg Betamethasone/Clotrimazole (Lotrisone) 0 gm TOP BID [facility] Last Admin: 09/15/18 09:09 Dose: 1 applic Carbidopa/Levodopa (Sinemet 10/100) 1 tab PO BID [facility] Last Admin: 09/15/18 09:03 Dose: 1 tab Clopidogrel Bisulfate (Plavix) 75 mg PO DAILY [facility] Last Admin: 09/15/18 09:03 Dose: 75 mg Digoxin (Digoxin) 0.125 mg PO DAILY@1800 [facility] Last Admin: 09/14/18 18:41 Dose: 0.125 mg Dorzolamide HCl (Trusopt) 0 ml OU BID [facility] Last Admin: 09/15/18 09:09 Dose: 1 drop Heparin Sodium (Porcine) (Heparin) 5,000 units SC Q12 [facility] Last Admin: 09/13/18 09:15 Dose: 5,000 units Vancomycin HCl 1 gm/ Sodium (Chloride) 250 mls @ 167 mls/hr IVPB Q24H [facility]; Protocol Last Admin: 09/14/18 20:13 Dose: 167 mls/hr Meropenem 500 mg/ Sodium (Chloride) 100 mls @ 100 mls/hr IVPB Q8H [facility]; Protocol Last Admin: 09/15/18 07:59 Dose: 100 mls/hr Insulin Aspart (Novolog) 0 unit SC ACHS [facility]; Protocol Last Admin: 09/15/18 07:57 Dose: 2 unit Insulin Detemir (Levemir) 26 unit SC Q12 [facility] Last Admin: 09/15/18 09:04 Dose: 26 units Metformin HCl (Glucophage Xr) 500 mg PO BID [facility] Last Admin: 09/15/18 09:03 Dose: 500 mg Metoprolol Tartrate (Lopressor) 25 mg PO BID [facility] Last Admin: 09/15/18 09:08 Dose: 25 mg Morphine Sulfate (Morphine) 2 mg IVP Q4 PRN PRN Reason: Pain Last Admin: 09/13/18 01:45 Dose: 2 mg Nateglinide (Starlix) 120 mg PO TID [facility] Last Admin: 09/15/18 09:03 Dose: 120 mg Oxycodone/Acetaminophen (Percocet 5/325 Mg Tab) 1 tab PO Q4H PRN PRN Reason: Pain, moderate (4-7) Stop: 09/17/18 09:14 Last Admin: 09/15/18 09:08 Dose: 1 tab Oxycodone/Acetaminophen (Percocet 5/325 Mg Tab) 2 tab PO Q4H PRN PRN Reason: Pain, severe (8-10) Stop: 09/17/18 09:14 Rosuvastatin Calcium (Crestor) 20 mg PO [facility] Last Admin: 09/14/18 22:11 Dose: 20 mg Sennosides (Senokot Tab) 8.6 mg PO [facility] Last Admin: 09/14/18 22:11 Dose: 8.6 mg Sitagliptin Phosphate (Januvia) 25 mg PO DAILY [facility] Last Admin: 09/15/18 09:03 Dose: 25 mg Timolol Maleate (Timoptic 0.5% Ophth Soln) 0 drop OU BID [facility] Last Admin: 09/15/18 09:09 Dose: 1 drop - Labs Labs: 09/11/18 15:08 09/14/18 06:31 PT 12.1 SECONDS (9.7-12.2) 09/14/18 05:48 INR 1.1 09/14/18 05:48 APTT 28.1 SECONDS (21-34) 09/14/18 05:48 - Constitutional Appears: Well, Non-toxic, No Acute Distress - Extremities Exam Extremities Exam: absent: Calf Tenderness Additional comments: VASC: DP and PT unpalpable, warmth to the left foot compare to the right foot, left foot cold, swelling noted to the left foot ORTHO: MM is 4/5 in all four compartments, amputated 4th digit left foot NEURO: gross sensation intact, protective sensation diminished DERM: s/p left 4th digit amputation. Surgical site is clean, there is no wound dehiscence, sutures are intact without backing out. Skin is well coapted, No purulence, no abscess or fluctanance noted, no maceration noted - Neurological Exam Neurological Exam: Alert, Awake, Oriented x3 - Psychiatric Exam Psychiatric exam: Normal Affect, Normal Mood Assessment and Plan - Assessment and Plan (Free Text) Assessment: 82 F POD#1 s/p left 4th digit amputation secondary to gangrene Plan: Patient seen and examined with Dr. Gambino in detail Surgical site is clean and dry Cleanse site with betadine, and dressed with xeroform, dsd and cling Patient may WBAT in surgical shoe Patient is stable per podiatry standpoint for discharge If patient is going home, dressing is to be kept clean, dry and intact until follow up visit with Dr. Gambino within 1 week where he will change dressing Please call for an appointment If patient is going to facility, wound is to be clean daily with betadine solution and dressed with xeroform, betadine wet to dry, dsd, and light cling. No KRISTEL. Patient to WBAT in surgical shoe
[2018-09-15] MEDS: Digoxin 125 mcg (0.125 mg) Tab PO SCH (18:09)
--- NOTE | 2018-09-15 22:25 | PN ---
DATE: 09/15/2018 FOLLOWUP SUBJECTIVE: The patient denies any chest pain, and she does not appear to be in any distress. PHYSICAL EXAMINATION: VITAL SIGNS: Blood pressure 171/89, heart rate 103, temperature 98.9, respirations 20. HEENT: Normocephalic. CHEST: Clear. HEART: S1 and S2, regular. EXTREMITIES: Dressing is applied to the left foot. LABORATORY DATA: Today's blood sugars are 217 and 311 respectively. Postoperative EKG revealed sinus tachycardia at the rate of 109 and poor R-wave progression. ASSESSMENT: 1. Status post amputation of gangrenous left fourth toe. 2. Uncontrolled hypertension. 3. Uncontrolled diabetes mellitus. 4. Sinus tachycardia. 5. History of cerebrovascular accident. 6. Mild aortic stenosis. 7. Left ventricular diastolic dysfunction. RECOMMENDATIONS: Continue aspirin 325 mg once a day, Crestor 20 mg once a day, digoxin 0.125 mg daily, subcutaneous heparin 5000 units every 12 hours, Lopressor 25 mg twice a day, IV meropenem at 500 mg every 8 hours, Plavix 75 mg once a day, vancomycin 1 g intravenously daily. Obtain venous Doppler of both lower extremities. Salo Armstrong MD
[2018-09-16] MEDS: Meropenem 500 MG in Sodium Chloride 0.9% 100 ML IVPB SCH ×3 (01:10→18:34)
[2018-09-16] MEDS: (Novolog) Insulin Aspart, Recombinant 100 u/ml 10 ml vial SC SCH ×4 (08:27→21:34)
[2018-09-16] MEDS: Dorzolamide 2% Opht Sol 10ml OU SCH ×2 (09:30→18:37)
[2018-09-16] MEDS: Clotrimazole/Betamethasone Cream(15 gm) TOP SCH ×2 (09:32→18:38)
[2018-09-16] MEDS: Insulin Detemir 100 units/ml Vial (Levemir) SC SCH ×2 (09:33→22:06)
--- NOTE | 2018-09-16 16:25 | CP.PCM.PN ---
Subjective - Date & Time of Evaluation Date of Evaluation: 09/16/18 Time of Evaluation: 08:00 - Subjective Subjective: weak nad s/p amp Objective - Vital Signs/Intake and Output Vital Signs (last 24 hours): Temp Pulse Resp BP Pulse Ox 99.3 F 99 H 20 131/74 96 09/16/18 08:27 09/16/18 08:27 09/16/18 08:27 09/16/18 08:27 09/16/18 08:27 Intake and Output: 09/16/18 09/16/18 06:59 18:59 Output Total 275 Balance -275 - Medications Medications: Current Medications Acetaminophen (Tylenol 325mg Tab) 650 mg PO Q6 PRN PRN Reason: Pain, Mild (1-3) Last Admin: 09/14/18 22:48 Dose: 650 mg Aspirin (Aspirin) 325 mg PO DAILY [facility] Last Admin: 09/16/18 09:30 Dose: 325 mg Betamethasone/Clotrimazole (Lotrisone) 0 gm TOP BID [facility] Last Admin: 09/16/18 09:32 Dose: 1 applic Carbidopa/Levodopa (Sinemet 10/100) 1 tab PO BID [facility] Last Admin: 09/16/18 09:31 Dose: 1 tab Clopidogrel Bisulfate (Plavix) 75 mg PO DAILY [facility] Last Admin: 09/16/18 09:30 Dose: 75 mg Digoxin (Digoxin) 0.125 mg PO DAILY@1800 [facility] Last Admin: 09/15/18 18:09 Dose: 0.125 mg Dorzolamide HCl (Trusopt) 0 ml OU BID [facility] Last Admin: 09/16/18 09:30 Dose: 1 drop Heparin Sodium (Porcine) (Heparin) 5,000 units SC Q12 [facility] Last Admin: 09/16/18 09:33 Dose: 5,000 units Vancomycin HCl 1 gm/ Sodium (Chloride) 250 mls @ 167 mls/hr IVPB Q24H [facility]; Protocol Last Admin: 09/15/18 18:30 Dose: 167 mls/hr Meropenem 500 mg/ Sodium (Chloride) 100 mls @ 100 mls/hr IVPB Q8H [facility]; Protocol Last Admin: 09/16/18 09:28 Dose: 100 mls/hr Insulin Aspart (Novolog) 0 unit SC ACHS [facility]; Protocol Last Admin: 06/02/19 12:16 Dose: 3 unit Insulin Detemir (Levemir) 26 unit SC Q12 [facility] Last Admin: 09/16/18 09:33 Dose: 26 units Metformin HCl (Glucophage Xr) 500 mg PO BID [facility] Last Admin: 09/16/18 09:31 Dose: 500 mg Metoprolol Tartrate (Lopressor) 25 mg PO BID [facility] Last Admin: 09/16/18 09:33 Dose: 25 mg Nateglinide (Starlix) 120 mg PO TID [facility] Last Admin: 09/16/18 13:16 Dose: 120 mg Oxycodone/Acetaminophen (Percocet 5/325 Mg Tab) 1 tab PO Q4H PRN PRN Reason: Pain, moderate (4-7) Stop: 09/17/18 09:14 Last Admin: 09/15/18 09:08 Dose: 1 tab Oxycodone/Acetaminophen (Percocet 5/325 Mg Tab) 2 tab PO Q4H PRN PRN Reason: Pain, severe (8-10) Stop: 09/17/18 09:14 Rosuvastatin Calcium (Crestor) 20 mg PO [facility] Last Admin: 09/15/18 22:00 Dose: 20 mg Sennosides (Senokot Tab) 8.6 mg PO [facility] Last Admin: 09/15/18 22:00 Dose: 8.6 mg Sitagliptin Phosphate (Januvia) 25 mg PO DAILY [facility] Last Admin: 09/16/18 09:30 Dose: 25 mg Timolol Maleate (Timoptic 0.5% Ophth Soln) 0 drop OU BID [facility] Last Admin: 09/16/18 09:30 Dose: 1 drop - Labs Labs: 09/11/18 15:08 09/14/18 06:31 PT 12.1 SECONDS (9.7-12.2) 09/14/18 05:48 INR 1.1 09/14/18 05:48 APTT 28.1 SECONDS (21-34) 09/14/18 05:48 - Constitutional Appears: No Acute Distress, Confused, Cachectic, Chronically Ill - Head Exam Head Exam: ATRAUMATIC, NORMAL INSPECTION, NORMOCEPHALIC - Eye Exam Eye Exam: EOMI, Normal appearance, PERRL Pupil Exam: NORMAL ACCOMODATION, PERRL - ENT Exam ENT Exam: Mucous Membranes Moist, Normal Exam - Neck Exam Neck Exam: Full ROM, Normal Inspection. absent: Lymphadenopathy - Respiratory Exam Respiratory Exam: Clear to Ausculation Bilateral, NORMAL BREATHING PATTERN - Cardiovascular Exam Cardiovascular Exam: REGULAR RHYTHM, +S1, +S2. absent: Murmur - GI/Abdominal Exam GI & Abdominal Exam: Soft, Normal Bowel Sounds. absent: Tenderness - Rectal Exam Rectal Exam: Deferred - Exam Exam: NORMAL INSPECTION - Extremities Exam Extremities Exam: Full ROM, Pedal Edema, Tenderness. absent: Joint Swelling, Normal Capillary Refill, Normal Inspection Additional comments: wound ok so far - Back Exam Back Exam: NORMAL INSPECTION - Neurological Exam Neurological Exam: Alert, Altered, Awake, CN II-XII Intact, Normal Gait, Oriented x3 - Psychiatric Exam Psychiatric exam: Depressed - Skin Skin Exam: absent: Dry, Normal Color Assessment and Plan (1) Altered mental status Status: Acute (2) Cellulitis and abscess of foot Status: Acute (3) Rheumatoid arthritis Status: Acute (4) Urinary tract infection Status: Acute (5) Diabetes mellitus Status: Chronic (6) History of dementia Status: Chronic - Assessment and Plan (Free Text) Assessment: IV rx in progress Providencia from wound cont iv rx poor prognosis
[2018-09-16] MEDS: Digoxin 125 mcg (0.125 mg) Tab PO SCH (18:36)
--- NOTE | 2018-09-16 19:19 | CP.PCM.PN ---
Subjective - Date & Time of Evaluation Date of Evaluation: 09/16/18 - Subjective Subjective: patient examined today no nausea no vomiting no dizziness no diarrhea no fever no shortness of breath Objective - Vital Signs/Intake and Output Vital Signs (last 24 hours): Temp Pulse Resp BP Pulse Ox 98 F 91 H 18 115/73 96 09/16/18 15:30 09/16/18 15:30 09/16/18 15:30 09/16/18 15:30 09/16/18 15:30 - Medications Medications: Current Medications Acetaminophen (Tylenol 325mg Tab) 650 mg PO Q6 PRN PRN Reason: Pain, Mild (1-3) Last Admin: 09/14/18 22:48 Dose: 650 mg Aspirin (Aspirin) 325 mg PO DAILY [facility] Last Admin: 09/16/18 09:30 Dose: 325 mg Betamethasone/Clotrimazole (Lotrisone) 0 gm TOP BID [facility] Last Admin: 09/16/18 18:38 Dose: 1 applic Carbidopa/Levodopa (Sinemet 10/100) 1 tab PO BID [facility] Last Admin: 09/16/18 18:36 Dose: 1 tab Clopidogrel Bisulfate (Plavix) 75 mg PO DAILY [facility] Last Admin: 09/16/18 09:30 Dose: 75 mg Digoxin (Digoxin) 0.125 mg PO DAILY@1800 [facility] Last Admin: 09/16/18 18:36 Dose: 0.125 mg Dorzolamide HCl (Trusopt) 0 ml OU BID [facility] Last Admin: 09/16/18 18:37 Dose: 1 drop Heparin Sodium (Porcine) (Heparin) 5,000 units SC Q12 [facility] Last Admin: 09/16/18 09:33 Dose: 5,000 units Vancomycin HCl 1 gm/ Sodium (Chloride) 250 mls @ 167 mls/hr IVPB Q24H [facility]; Protocol Last Admin: 09/15/18 18:30 Dose: 167 mls/hr Meropenem 500 mg/ Sodium (Chloride) 100 mls @ 100 mls/hr IVPB Q8H [facility]; Protocol Last Admin: 09/16/18 18:34 Dose: 100 mls/hr Insulin Aspart (Novolog) 0 unit SC ACHS [facility]; Protocol Last Admin: 09/16/18 17:30 Dose: 1 unit Insulin Detemir (Levemir) 26 unit SC Q12 [facility] Last Admin: 09/16/18 09:33 Dose: 26 units Metformin HCl (Glucophage Xr) 500 mg PO BID [facility] Last Admin: 09/16/18 18:38 Dose: 500 mg Metoprolol Tartrate (Lopressor) 25 mg PO BID [facility] Last Admin: 09/16/18 18:36 Dose: 25 mg Nateglinide (Starlix) 120 mg PO TID [facility] Last Admin: 09/16/18 18:36 Dose: 120 mg Oxycodone/Acetaminophen (Percocet 5/325 Mg Tab) 1 tab PO Q4H PRN PRN Reason: Pain, moderate (4-7) Stop: 09/17/18 09:14 Last Admin: 09/15/18 09:08 Dose: 1 tab Oxycodone/Acetaminophen (Percocet 5/325 Mg Tab) 2 tab PO Q4H PRN PRN Reason: Pain, severe (8-10) Stop: 09/17/18 09:14 Rosuvastatin Calcium (Crestor) 20 mg PO [facility] Last Admin: 09/15/18 22:00 Dose: 20 mg Sennosides (Senokot Tab) 8.6 mg PO [facility] Last Admin: 09/15/18 22:00 Dose: 8.6 mg Sitagliptin Phosphate (Januvia) 25 mg PO DAILY [facility] Last Admin: 09/16/18 09:30 Dose: 25 mg Timolol Maleate (Timoptic 0.5% Ophth Soln) 0 drop OU BID [facility] Last Admin: 09/16/18 18:37 Dose: 1 drop - Labs Labs: 09/11/18 15:08 09/14/18 06:31 PT 12.1 SECONDS (9.7-12.2) 09/14/18 05:48 INR 1.1 09/14/18 05:48 APTT 28.1 SECONDS (21-34) 09/14/18 05:48 - Constitutional Appears: Well - Head Exam Head Exam: ATRAUMATIC, NORMAL INSPECTION, NORMOCEPHALIC - ENT Exam ENT Exam: Mucous Membranes Moist, Normal Exam - Neck Exam Neck Exam: Full ROM, Normal Inspection. absent: Lymphadenopathy - Respiratory Exam Respiratory Exam: Decreased Breath Sounds - Cardiovascular Exam Cardiovascular Exam: REGULAR RHYTHM, +S1, +S2 - GI/Abdominal Exam GI & Abdominal Exam: Soft, Diminished Bowel Sounds - Rectal Exam Rectal Exam: Deferred - Neurological Exam Neurological Exam: Oriented x3 Assessment and Plan - Assessment and Plan (Free Text) Plan: plan discussed with patient moderate complexity of care aspirin crestor digoxin glucophage xr heparin januvia levemir loressor lotrisone meropenem novolog percocet plavix senokot tab sinemet starlix timoptic trusopt tylenol vancomycin medications reviewed labs and vitals reviewed
--- NOTE | 2018-09-16 20:40 | PN ---
DATE: 09/16/2018 SUBJECTIVE: The patient complains of left foot pain. She denies any chest pain. PHYSICAL EXAMINATION: VITAL SIGNS: Blood pressure 131/74, heart rate 99, temperature 99.3, respirations 20. HEENT: Normocephalic. CHEST: Clear. HEART: S1, S2. Regular. EXTREMITIES: No edema. LABORATORY DATA: Today's blood sugars are 140 and 275 respectively. ASSESSMENT: 1. Status post amputation of gangrenous left fourth toe. 2. Systemic hypertension. 3. History of cerebrovascular accident. 4. Mild aortic stenosis. 5. Diastolic left ventricular dysfunction. 6. Uncontrolled diabetes mellitus. RECOMMENDATIONS: Continue aspirin 325 mg once a day, Crestor 20 mg once a day, digoxin 0.125 mg once a day, heparin 5000 units subcutaneously every 12 hours, Lopressor 25 mg twice a day, intravenous meropenem at 500 mg every 8 hours, Plavix 75 mg once a day, vancomycin at 1 g intravenously daily, Sinemet at 1 tablet b.i.d. and Percocet at 1 tablet every 4 hours as needed, which I did instruct the nurse to give her 1 tablet now. Salo Armstrong MD
[2018-09-17] MEDS: Meropenem 500 MG in Sodium Chloride 0.9% 100 ML IVPB SCH ×2 (01:23→08:55)
[2018-09-17] MEDS: (Novolog) Insulin Aspart, Recombinant 100 u/ml 10 ml vial SC SCH ×4 (07:13→21:22)
[2018-09-17] MEDS: Insulin Detemir 100 units/ml Vial (Levemir) SC SCH ×2 (10:43→21:35)
[2018-09-17] MEDS: Dorzolamide 2% Opht Sol 10ml OU SCH ×2 (10:44→17:58)
--- NOTE | 2018-09-17 11:17 | VASCLAB ---
Date of service: 09/17/2018 PROCEDURE: Lower Extremity Venous Duplex Exam. HISTORY: Leg pain PRIORS: None. TECHNIQUE: Bilateral common femoral, femoral, popliteal and posterior tibial, peroneal and great saphenous veins were evaluated. Flow was assessed with color Doppler, compressibility, assessment of phasic flow and augmentation response. Report prepared by Zenon Rehman, JOSSUE, RVT FINDINGS: RIGHT: 1. Common Femoral Vein: 1.1. Compressibility - Fully compressible: Thrombus - None : Flow - Phasic: Augmentation -Normal: Reflux - None. 2. Femoral Vein: 2.1. Compressibility - Fully compressible: Thrombus - None : Flow - Phasic: Augmentation -Normal: Reflux - None. 3. Popliteal Vein: 3.1. Compressibility - Fully compressible: Thrombus - None : Flow - Phasic: Augmentation -Normal: Reflux - None. 4. Posterior Tibial Vein: 4.1. Compressibility - Fully compressible: Thrombus - None: Flow - Phasic: Augmentation -Normal: Reflux - None. 5. Peroneal Vein: 5.1. Compressibility - Fully compressible: Thrombus - None: Flow - Phasic: Augmentation -Normal: Reflux - None. 6. Great Saphenous Vein: 6.1. Compressibility - Fully compressible: Thrombus - None: Flow - Phasic: Augmentation - Normal: Reflux - None. LEFT: 1. Common Femoral Vein: 1.1. Compressibility - Fully compressible: Thrombus - None: Flow - Phasic: Augmentation -Normal: Reflux - None. 2. Femoral Vein: 2.1. Compressibility - Fully compressible: Thrombus - None: Flow - Phasic: Augmentation -Normal: Reflux - None. 3. Popliteal Vein: 3.1. Compressibility - Fully compressible: Thrombus - None : Flow - Phasic: Augmentation -Normal: Reflux - None. 4. Posterior Tibial Vein: 4.1. Compressibility - Fully compressible: Thrombus - None: Flow - Phasic: Augmentation -Normal: Reflux - None. 5. Peroneal Vein: 5.1. Compressibility - Fully compressible: Thrombus - None: Flow - Phasic: Augmentation -Normal: Reflux - None. 6. Great Saphenous Vein: 6.1. Compressibility - Fully compressible: Thrombus - None: Flow - Phasic: Augmentation - Normal: Reflux - None. OTHER FINDINGS: Right: None significant. Left: None significant. IMPRESSION: Right: No evidence of deep or superficial vein thrombosis of the right lower extremity. Normal valve function noted of the right side. Left: No evidence of deep or superficial vein thrombosis of the left lower extremity. Normal valve function noted of the left side.
[2018-09-17] MEDS: Clotrimazole/Betamethasone Cream(15 gm) TOP SCH ×2 (11:20→17:58)
--- NOTE | 2018-09-17 13:01 | CP.PCM.PN ---
Subjective - Date & Time of Evaluation Date of Evaluation: 09/17/18 Time of Evaluation: 08:00 - Subjective Subjective: adeveloped rash possibly contact dermatitis from bed sheets switched to aztreonam for Providencia Objective - Vital Signs/Intake and Output Vital Signs (last 24 hours): Temp Pulse Resp BP Pulse Ox 98.5 F 87 20 138/73 95 09/17/18 07:10 09/17/18 07:10 09/17/18 07:10 09/17/18 07:10 09/17/18 07:10 Intake and Output: 09/17/18 09/17/18 06:59 18:59 Intake Total 400 Output Total 1201 Balance -801 - Medications Medications: Current Medications Acetaminophen (Tylenol 325mg Tab) 650 mg PO Q6 PRN PRN Reason: Pain, Mild (1-3) Last Admin: 09/14/18 22:48 Dose: 650 mg Aspirin (Aspirin) 325 mg PO DAILY [facility] Last Admin: 09/17/18 10:43 Dose: 325 mg Betamethasone/Clotrimazole (Lotrisone) 0 gm TOP BID [facility] Last Admin: 09/17/18 11:20 Dose: 1 applic Carbidopa/Levodopa (Sinemet 10/) 1 tab PO BID [facility] Last Admin: 09/17/18 10:45 Dose: 1 tab Clopidogrel Bisulfate (Plavix) 75 mg PO DAILY [facility] Last Admin: 09/17/18 10:43 Dose: 75 mg Digoxin (Digoxin) 0.125 mg PO DAILY@1800 [facility] Last Admin: 09/16/18 18:36 Dose: 0.125 mg Dorzolamide HCl (Trusopt) 0 ml OU BID [facility] Last Admin: 09/17/18 10:44 Dose: 1 drop Heparin Sodium (Porcine) (Heparin) 5,000 units SC Q12 [facility] Last Admin: 09/17/18 10:43 Dose: 5,000 units Insulin Aspart (Novolog) 0 unit SC [facility]; Protocol Last Admin: 09/17/18 12:07 Dose: 4 unit Insulin Detemir (Levemir) 26 unit SC Q12 [facility] Last Admin: 09/17/18 10:43 Dose: 26 units Metformin HCl (Glucophage Xr) 500 mg PO BID [facility] Last Admin: 09/17/18 10:45 Dose: 500 mg Metoprolol Tartrate (Lopressor) 25 mg PO BID [facility] Last Admin: 09/17/18 10:48 Dose: 25 mg Nateglinide (Starlix) 120 mg PO TID [facility] Last Admin: 09/17/18 10:44 Dose: 120 mg Rosuvastatin Calcium (Crestor) 20 mg PO HS [facility] Last Admin: 09/16/18 22:08 Dose: 20 mg Sennosides (Senokot Tab) 8.6 mg PO HS [facility] Last Admin: 09/16/18 22:08 Dose: 8.6 mg Sitagliptin Phosphate (Januvia) 25 mg PO DAILY [facility] Last Admin: 09/17/18 10:43 Dose: 25 mg Timolol Maleate (Timoptic 0.5% Ophth Soln) 0 drop OU BID [facility] Last Admin: 09/17/18 10:44 Dose: 1 drop - Labs Labs: 09/11/18 15:08 09/14/18 06:31 PT 12.1 SECONDS (9.7-12.2) 09/14/18 05:48 INR 1.1 09/14/18 05:48 APTT 28.1 SECONDS (21-34) 09/14/18 05:48 - Constitutional Appears: Non-toxic, Confused, Cachectic, Chronically Ill - Head Exam Head Exam: ATRAUMATIC, NORMAL INSPECTION, NORMOCEPHALIC - Eye Exam Eye Exam: EOMI, Normal appearance, PERRL Pupil Exam: NORMAL ACCOMODATION, PERRL - ENT Exam ENT Exam: Mucous Membranes Moist, Normal Exam - Neck Exam Neck Exam: Full ROM, Normal Inspection. absent: Lymphadenopathy - Respiratory Exam Respiratory Exam: Clear to Ausculation Bilateral, NORMAL BREATHING PATTERN - Cardiovascular Exam Cardiovascular Exam: REGULAR RHYTHM, +S1, +S2. absent: Murmur - GI/Abdominal Exam GI & Abdominal Exam: Soft, Normal Bowel Sounds. absent: Tenderness - Rectal Exam Rectal Exam: Deferred - Extremities Exam Extremities Exam: Full ROM, Normal Capillary Refill, Normal Inspection. absent: Joint Swelling, Pedal Edema - Back Exam Back Exam: NORMAL INSPECTION - Neurological Exam Neurological Exam: Altered, CN II-XII Intact. absent: Normal Gait - Psychiatric Exam Psychiatric exam: Depressed - Skin Skin Exam: Dry, Intact, Warm. absent: Normal Color Assessment and Plan (1) Altered mental status Status: Acute (2) Cellulitis and abscess of foot Status: Acute (3) Rheumatoid arthritis Status: Acute (4) Urinary tract infection Status: Acute (5) Diabetes mellitus Status: Chronic (6) History of dementia Status: Chronic - Assessment and Plan (Free Text) Assessment: s/p amputation left fourth toe severe PVD cont IV Azactam for 2-6 weeks
[2018-09-17] MEDS ORDERED: Oxycodone/Acetaminophen 5/325 mg Tab PO PRN (13:42)
[2018-09-17] MEDS: Aztreonam 1 GM in Sodium Chloride 0.9% 100 ML IVPB SCH ×2 (14:41→21:34)
--- NOTE | 2018-09-17 16:08 | CP.PCM.PN ---
Subjective - Date & Time of Evaluation Date of Evaluation: 09/17/18 - Subjective Subjective: patient seen and examined today no nausea no dizziness no vomiting no fever no diarrhea no shortness of breath Objective - Vital Signs/Intake and Output Vital Signs (last 24 hours): Temp Pulse Resp BP Pulse Ox 97.9 F 81 18 129/75 98 09/17/18 16:00 09/17/18 16:00 09/17/18 16:00 09/17/18 16:00 09/17/18 16:00 Intake and Output: 09/17/18 09/17/18 06:59 18:59 Intake Total 400 Output Total 1201 Balance -801 - Medications Medications: Current Medications Acetaminophen (Tylenol 325mg Tab) 650 mg PO Q6 PRN PRN Reason: Pain, Mild (1-3) Last Admin: 09/14/18 22:48 Dose: 650 mg Aspirin (Aspirin) 325 mg PO DAILY [facility] Last Admin: 09/17/18 10:43 Dose: 325 mg Betamethasone/Clotrimazole (Lotrisone) 0 gm TOP BID [facility] Last Admin: 09/17/18 11:20 Dose: 1 applic Carbidopa/Levodopa (Sinemet 10/100) 1 tab PO BID [facility] Last Admin: 09/17/18 10:45 Dose: 1 tab Clopidogrel Bisulfate (Plavix) 75 mg PO DAILY [facility] Last Admin: 09/17/18 10:43 Dose: 75 mg Digoxin (Digoxin) 0.125 mg PO DAILY@1800 [facility] Last Admin: 09/16/18 18:36 Dose: 0.125 mg Dorzolamide HCl (Trusopt) 0 ml OU BID [facility] Last Admin: 09/17/18 10:44 Dose: 1 drop Heparin Sodium (Porcine) (Heparin) 5,000 units SC Q12 [facility] Last Admin: 09/17/18 10:43 Dose: 5,000 units Aztreonam 1 gm/ Sodium (Chloride) 100 mls @ 100 mls/hr IVPB Q8H [facility]; Protocol Last Admin: 09/17/18 14:41 Dose: 100 mls/hr Insulin Aspart (Novolog) 0 unit SC ACHS [facility]; Protocol Last Admin: 09/17/18 12:07 Dose: 4 unit Insulin Detemir (Levemir) 26 unit SC Q12 [facility] Last Admin: 09/17/18 10:43 Dose: 26 units Metformin HCl (Glucophage Xr) 500 mg PO BID [facility] Last Admin: 09/17/18 10:45 Dose: 500 mg Metoprolol Tartrate (Lopressor) 25 mg PO BID [facility] Last Admin: 09/17/18 10:48 Dose: 25 mg Nateglinide (Starlix) 120 mg PO TID [facility] Last Admin: 09/17/18 14:16 Dose: 120 mg Oxycodone/Acetaminophen (Percocet 5/325 Mg Tab) 1 tab PO Q6H PRN PRN Reason: Pain, moderate (4-7) Stop: 09/20/18 13:43 Rosuvastatin Calcium (Crestor) 20 mg PO [facility] Last Admin: 09/16/18 22:08 Dose: 20 mg Sennosides (Senokot Tab) 8.6 mg PO [facility] Last Admin: 09/16/18 22:08 Dose: 8.6 mg Sitagliptin Phosphate (Januvia) 25 mg PO DAILY [facility] Last Admin: 09/17/18 10:43 Dose: 25 mg Timolol Maleate (Timoptic 0.5% Ophth Soln) 0 drop OU BID [facility] Last Admin: 09/17/18 10:44 Dose: 1 drop - Labs Labs: 09/11/18 15:08 09/14/18 06:31 PT 12.1 SECONDS (9.7-12.2) 09/14/18 05:48 INR 1.1 09/14/18 05:48 APTT 28.1 SECONDS (21-34) 09/14/18 05:48 - Constitutional Appears: Well - Head Exam Head Exam: ATRAUMATIC, NORMAL INSPECTION, NORMOCEPHALIC - Eye Exam Eye Exam: EOMI, Normal appearance, PERRL Pupil Exam: NORMAL ACCOMODATION, PERRL - ENT Exam ENT Exam: Mucous Membranes Moist, Normal Exam - Neck Exam Neck Exam: Full ROM, Normal Inspection. absent: Lymphadenopathy - Respiratory Exam Respiratory Exam: Decreased Breath Sounds - Cardiovascular Exam Cardiovascular Exam: REGULAR RHYTHM, +S1, +S2 - GI/Abdominal Exam GI & Abdominal Exam: Soft, Diminished Bowel Sounds - Rectal Exam Rectal Exam: Deferred - Neurological Exam Neurological Exam: Oriented x3 Assessment and Plan - Assessment and Plan (Free Text) Plan: plan discussed with patient moderate complexity of care medications reviewed labs reviewed vitals reviewed aspirin crestor digoxin glucophage xr heparin januvia levemir loressor lotrisone meropenem novolog percocet plavix senokot tab sinemet starlix timoptic trusopt tylenol vancomycin
--- NOTE | 2018-09-17 17:42 | PN ---
DATE: 09/17/2018 SUBJECTIVE: The patient complains of left foot pain. She denies any chest pain. PHYSICAL EXAMINATION: VITAL SIGNS: Blood pressure 138/73, heart rate 87, temperature 98.5, and respirations 20. HEENT: Normocephalic. CHEST: Clear. HEART: S1 and S2, regular. EXTREMITIES: Dressing was applied to the left foot. LABORATORY DATA: Today's blood sugar is 115 and 320 respectively. Venous Doppler of lower extremity revealed no evidence of superficial or deep thrombosis of either lower extremities. ASSESSMENT: 1. Status post amputation of gangrenous left fourth toe. 2. Uncontrolled diabetes mellitus. 3. Improved sinus tachycardia. 4. Hypertension. 5. Mild aortic stenosis. 6. Left ventricular diastolic dysfunction. RECOMMENDATIONS: Continue aspirin 325 mg once a day, Azactam 1 g every 8 hours, Crestor 20 mg once a day, digoxin 0.125 mg once a day, heparin 5000 units subcutaneously every 12 hours, Lopressor 25 mg twice a day, Plavix 75 mg once a day, and Sinemet 1 tablet twice a day. I will order 1 tablet of Percocet as a single dose now. Salo Armstrong MD
[2018-09-17] MEDS: Digoxin 125 mcg (0.125 mg) Tab PO SCH (17:58)
[2018-09-18] MEDS: Aztreonam 1 GM in Sodium Chloride 0.9% 100 ML IVPB SCH ×2 (05:23→14:52)
[2018-09-18 08:30] VITALS: O2SAT 95
[2018-09-18] MEDS: (Novolog) Insulin Aspart, Recombinant 100 u/ml 10 ml vial SC SCH ×3 (08:37→17:35)
[2018-09-18] MEDS: Insulin Detemir 100 units/ml Vial (Levemir) SC SCH (11:19)
[2018-09-18] MEDS: Clotrimazole/Betamethasone Cream(15 gm) TOP SCH ×2 (11:20→17:47)
[2018-09-18] MEDS: Dorzolamide 2% Opht Sol 10ml OU SCH ×2 (11:21→17:42)
--- NOTE | 2018-09-18 12:57 | CP.PCM.PN ---
Subjective - Date & Time of Evaluation Date of Evaluation: 09/18/18 Time of Evaluation: 09:00 - Subjective Subjective: no rash on azactam afebrile wound c/d/i Objective - Vital Signs/Intake and Output Vital Signs (last 24 hours): Temp Pulse Resp BP Pulse Ox 98.1 F 84 20 142/83 95 09/18/18 08:28 09/18/18 08:28 09/18/18 08:28 09/18/18 08:28 09/18/18 08:28 - Medications Medications: Current Medications Acetaminophen (Tylenol 325mg Tab) 650 mg PO Q6 PRN PRN Reason: Pain, Mild (1-3) Last Admin: 09/14/18 22:48 Dose: 650 mg Aspirin (Aspirin) 325 mg PO DAILY [facility] Last Admin: 09/18/18 11:19 Dose: 325 mg Betamethasone/Clotrimazole (Lotrisone) 0 gm TOP BID [facility] Last Admin: 09/18/18 11:20 Dose: 1 applic Carbidopa/Levodopa (Sinemet 10/100) 1 tab PO BID [facility] Last Admin: 09/18/18 11:21 Dose: 1 tab Clopidogrel Bisulfate (Plavix) 75 mg PO DAILY [facility] Last Admin: 09/18/18 11:19 Dose: 75 mg Digoxin (Digoxin) 0.125 mg PO DAILY@1800 [facility] Last Admin: 09/17/18 17:58 Dose: 0.125 mg Dorzolamide HCl (Trusopt) 0 ml OU BID [facility] Last Admin: 09/18/18 11:21 Dose: 1 drop Aztreonam 1 gm/ Sodium (Chloride) 100 mls @ 100 mls/hr IVPB Q8H [facility]; Protocol Last Admin: 09/18/18 05:23 Dose: 100 mls/hr Insulin Aspart (Novolog) 0 unit SC ACHS [facility]; Protocol Last Admin: 09/18/18 08:37 Dose: Not Given Insulin Detemir (Levemir) 26 unit SC Q12 [facility] Last Admin: 09/18/18 11:19 Dose: 26 units Metformin HCl (Glucophage Xr) 500 mg PO BID [facility] Last Admin: 09/18/18 11:20 Dose: Not Given Metoprolol Tartrate (Lopressor) 25 mg PO BID [facility] Last Admin: 09/17/18 17:58 Dose: 25 mg Nateglinide (Starlix) 120 mg PO TID [facility] Last Admin: 09/18/18 11:21 Dose: Not Given Oxycodone/Acetaminophen (Percocet 5/325 Mg Tab) 1 tab PO Q6H PRN PRN Reason: Pain, moderate (4-7) Stop: 09/20/18 13:43 Rosuvastatin Calcium (Crestor) 20 mg PO [facility] Last Admin: 09/17/18 21:34 Dose: 20 mg Sennosides (Senokot Tab) 8.6 mg PO [facility] Last Admin: 09/17/18 21:34 Dose: 8.6 mg Sitagliptin Phosphate (Januvia) 25 mg PO DAILY [facility] Last Admin: 09/18/18 11:19 Dose: 25 mg Timolol Maleate (Timoptic 0.5% Ophth Soln) 0 drop OU BID [facility] Last Admin: 09/18/18 11:21 Dose: 1 drop - Labs Labs: 09/11/18 15:08 09/14/18 06:31 PT 12.1 SECONDS (9.7-12.2) 09/14/18 05:48 INR 1.1 09/14/18 05:48 APTT 28.1 SECONDS (21-34) 09/14/18 05:48 - Constitutional Appears: Non-toxic, No Acute Distress, Cachectic, Chronically Ill - Head Exam Head Exam: ATRAUMATIC, NORMAL INSPECTION, NORMOCEPHALIC - Eye Exam Eye Exam: EOMI, Normal appearance, PERRL Pupil Exam: NORMAL ACCOMODATION, PERRL - ENT Exam ENT Exam: Mucous Membranes Moist, Normal Exam - Neck Exam Neck Exam: Full ROM, Normal Inspection. absent: Lymphadenopathy - Respiratory Exam Respiratory Exam: Clear to Ausculation Bilateral, NORMAL BREATHING PATTERN - Cardiovascular Exam Cardiovascular Exam: REGULAR RHYTHM, +S1, +S2. absent: Murmur - GI/Abdominal Exam GI & Abdominal Exam: Soft, Normal Bowel Sounds. absent: Tenderness - Rectal Exam Rectal Exam: Deferred - Exam Exam: NORMAL INSPECTION - Extremities Exam Extremities Exam: Full ROM, Normal Capillary Refill, Normal Inspection. absent: Joint Swelling, Pedal Edema - Back Exam Back Exam: NORMAL INSPECTION - Neurological Exam Neurological Exam: Alert, Awake, CN II-XII Intact, Oriented x3. absent: Normal Gait - Psychiatric Exam Psychiatric exam: Depressed, Normal Affect - Skin Skin Exam: Dry, Warm. absent: Intact, Normal Color Assessment and Plan (1) Altered mental status Status: Acute (2) Cellulitis and abscess of foot Status: Acute (3) Rheumatoid arthritis Status: Acute (4) Urinary tract infection Status: Acute (5) Diabetes mellitus Status: Chronic (6) History of dementia Status: Chronic - Assessment and Plan (Free Text) Assessment: wound in tact iv rx to cont for min 2 weeks possibly 6 weeks follow labs and wound healing
--- NOTE | 2018-09-18 14:44 | RAD ---
HISTORY: PICC placement COMPARISON: Chest x-ray performed 09/11/18 TECHNIQUE: Chest, one view. FINDINGS: Right-sided PICC extends to the cavoatrial junction. LUNGS: No focal consolidation. Please note that chest x-ray has limited sensitivity for the detection of pulmonary masses. PLEURA: No significant pleural effusion identified. No definite pneumothorax . CARDIOVASCULAR: Heart size appears within normal limits. Aortic ectasia. Atherosclerotic calcifications of the aorta. OSSEOUS STRUCTURES: Degenerative changes of the spine. VISUALIZED UPPER ABDOMEN: Unremarkable. OTHER FINDINGS: IVC filter. IMPRESSION: Right-sided PICC. Aortic ectasia. No focal consolidation. IVC filter.
[2018-09-18 16:23] VITALS: BP 133/57; PULSE 78; RESP 18; TEMP 97.8
--- NOTE | 2018-09-18 16:31 | PN ---
DATE: 09/18/2018 SUBJECTIVE: The patient denies any chest pain. No shortness of breath. PHYSICAL EXAMINATION: VITAL SIGNS: Blood pressure 142/83, heart rate 84, temperature 98.1, and respirations 20. HEENT: Normocephalic. CHEST: Clear. HEART: S1 and S2, regular. EXTREMITIES: No edema. LABORATORY DATA: Today's blood sugar is 142 and 443 respectively. ASSESSMENT: 1. Status post left fourth toe amputation. 2. Mild aortic stenosis. 3. Impaired diastolic left ventricular function. 4. Uncontrolled diabetes mellitus. 5. Hypertension. RECOMMENDATIONS: Continue aspirin 325 mg once a day, Azactam at 1 g intravenously every 8 hours, Crestor 20 mg once a day, digoxin 0.125 mg daily, Lopressor 25 mg twice a day, Plavix 75 mg once a day, and Sinemet 1 tablet t.i.d. Salo Armstrong MD
--- NOTE | 2018-09-18 16:57 | CP.PCM.PN ---
Subjective - Date & Time of Evaluation Date of Evaluation: 09/18/18 Time of Evaluation: 12:00 - Subjective Subjective: Podiatry Progress Note- Dr. 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 Patient is seen resting comfortably in bed, in NAD. Patient seen with attending. Patient denies of pain to the foot with no pressure. Expresses pain with dressing change. Dressing is clean dry and intact. No other pedal complaints. Denies nausea, fever, shortness of breath, chest pains or chills. Denies calf pain or tenderness. Objective - Vital Signs/Intake and Output Vital Signs (last 24 hours): Temp Pulse Resp BP Pulse Ox 97.8 F 78 18 133/57 L 95 09/18/18 16:00 09/18/18 16:00 09/18/18 16:00 09/18/18 16:00 09/18/18 16:00 - Medications Medications: Current Medications Acetaminophen (Tylenol 325mg Tab) 650 mg PO Q6 PRN PRN Reason: Pain, Mild (1-3) Last Admin: 09/14/18 22:48 Dose: 650 mg Aspirin (Aspirin) 325 mg PO DAILY [facility] Last Admin: 09/18/18 11:19 Dose: 325 mg Betamethasone/Clotrimazole (Lotrisone) 0 gm TOP BID [facility] Last Admin: 09/18/18 11:20 Dose: 1 applic Carbidopa/Levodopa (Sinemet 10/100) 1 tab PO BID [facility] Last Admin: 09/18/18 11:21 Dose: 1 tab Clopidogrel Bisulfate (Plavix) 75 mg PO DAILY [facility] Last Admin: 09/18/18 11:19 Dose: 75 mg Digoxin (Digoxin) 0.125 mg PO DAILY@1800 [facility] Last Admin: 09/17/18 17:58 Dose: 0.125 mg Dorzolamide HCl (Trusopt) 0 ml OU BID [facility] Last Admin: 09/18/18 11:21 Dose: 1 drop Aztreonam 1 gm/ Sodium (Chloride) 100 mls @ 100 mls/hr IVPB Q8H [facility]; Protocol Last Admin: 09/18/18 14:52 Dose: 100 mls/hr Insulin Aspart (Novolog) 0 unit SC ACHS [facility]; Protocol Last Admin: 09/18/18 13:04 Dose: 6 unit Insulin Detemir (Levemir) 26 unit SC Q12 [facility] Last Admin: 09/18/18 11:19 Dose: 26 units Metformin HCl (Glucophage Xr) 500 mg PO BID [facility] Last Admin: 09/18/18 11:20 Dose: Not Given Metoprolol Tartrate (Lopressor) 25 mg PO BID [facility] Last Admin: 09/18/18 14:52 Dose: 25 mg Nateglinide (Starlix) 120 mg PO TID [facility] Last Admin: 09/18/18 14:52 Dose: 120 mg Oxycodone/Acetaminophen (Percocet 5/325 Mg Tab) 1 tab PO Q6H PRN PRN Reason: Pain, moderate (4-7) Stop: 09/20/18 13:43 Rosuvastatin Calcium (Crestor) 20 mg PO [facility] Last Admin: 09/17/18 21:34 Dose: 20 mg Sennosides (Senokot Tab) 8.6 mg PO [facility] Last Admin: 09/17/18 21:34 Dose: 8.6 mg Sitagliptin Phosphate (Januvia) 25 mg PO DAILY [facility] Last Admin: 09/18/18 11:19 Dose: 25 mg Timolol Maleate (Timoptic 0.5% Oph Soln) 0 drop OU BID [facility] Last Admin: 09/18/18 11:21 Dose: 1 drop - Labs Labs: 09/11/18 15:08 09/14/18 06:31 PT 12.1 SECONDS (9.7-12.2) 09/14/18 05:48 INR 1.1 09/14/18 05:48 APTT 28.1 SECONDS (21-34) 09/14/18 05:48 - Constitutional Appears: Well, Non-toxic, No Acute Distress - Extremities Exam Extremities Exam: absent: Calf Tenderness Additional comments: VASC: DP and PT unpalpable, warmth to the left foot compare to the right foot, left foot cold, swelling noted to the left foot ORTHO: MM is 4/5 in all four compartments, amputated 4th digit left foot NEURO: gross sensation intact, protective sensation diminished DERM: s/p left 4th digit amputation. Surgical site is clean, there is no wound dehiscence, sutures are intact without backing out. 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 Gambino in detail Surgical site is clean and dry Cleanse site with betadine, and dressed with xeroform, dsd and cling Patient may WBAT in surgical shoe Patient is stable per podiatry standpoint for discharge If patient is going home, dressing is to be kept clean, dry and intact until follow up visit with Dr. Gambino within 1 week where he will change dressing Please call for an appointment If patient is going to facility, wound is to be clean daily with betadine solution and dressed with xeroform, betadine wet to dry, dsd, and light cling. No KRISTEL. Patient to WBAT in surgical shoe
[2018-09-18 17:29] LABS: ALB/GLOB RATIO 1.2 (1.0-2.1); ALBUMIN 4.1 g/dL (3.5-5.0); ALT/SGPT 16 U/L (9-52); AST/SGOT 38 U/L (14-36); BLOOD UREA NITROGEN 21 mg/dL (7-17); CALCIUM 9.8 mg/dl (8.6-10.4); GFR NON-AFRICAN AMERICAN > 60
[2018-09-18 17:44] VITALS: PULSE 78
[2018-09-18] MEDS: Digoxin 125 mcg (0.125 mg) Tab PO SCH (17:44)
--- NOTE | 2018-09-18 18:26 | CP.PCM.PN ---
Subjective - Date & Time of Evaluation Date of Evaluation: 09/18/18 - Subjective Subjective: patient seen and examined today no nausea no dizziness no vomiting no fever no diarrhea no shortness of breath Objective - Vital Signs/Intake and Output Vital Signs (last 24 hours): Temp Pulse Resp BP Pulse Ox 97.8 F 78 18 133/57 L 95 09/18/18 16:00 09/18/18 16:00 09/18/18 16:00 09/18/18 16:00 09/18/18 16:00 - Medications Medications: Current Medications Acetaminophen (Tylenol 325mg Tab) 650 mg PO Q6 PRN PRN Reason: Pain, Mild (1-3) Last Admin: 09/14/18 22:48 Dose: 650 mg Aspirin (Aspirin) 325 mg PO DAILY [facility] Last Admin: 09/18/18 11:19 Dose: 325 mg Betamethasone/Clotrimazole (Lotrisone) 0 gm TOP BID [facility] Last Admin: 09/18/18 17:47 Dose: 1 applic Carbidopa/Levodopa (Sinemet 10/100) 1 tab PO BID [facility] Last Admin: 09/18/18 17:43 Dose: 1 tab Clopidogrel Bisulfate (Plavix) 75 mg PO DAILY [facility] Last Admin: 09/18/18 11:19 Dose: 75 mg Digoxin (Digoxin) 0.125 mg PO DAILY@1800 [facility] Last Admin: 09/18/18 17:44 Dose: 0.125 mg Dorzolamide HCl (Trusopt) 0 ml OU BID [facility] Last Admin: 09/18/18 17:42 Dose: 1 drop Aztreonam 1 gm/ Sodium (Chloride) 100 mls @ 100 mls/hr IVPB Q8H [facility]; Protocol Last Admin: 09/18/18 14:52 Dose: 100 mls/hr Insulin Aspart (Novolog) 0 unit SC ACHS [facility]; Protocol Last Admin: 09/18/18 17:35 Dose: 2 unit Insulin Detemir (Levemir) 26 unit SC Q12 [facility] Last Admin: 09/18/18 11:19 Dose: 26 units Metformin HCl (Glucophage Xr) 500 mg PO BID [facility] Last Admin: 09/18/18 17:42 Dose: 500 mg Metoprolol Tartrate (Lopressor) 25 mg PO BID [facility] Last Admin: 09/18/18 17:41 Dose: 25 mg Nateglinide (Starlix) 120 mg PO TID [facility] Last Admin: 09/18/18 17:42 Dose: 120 mg Oxycodone/Acetaminophen (Percocet 5/325 Mg Tab) 1 tab PO Q6H PRN PRN Reason: Pain, moderate (4-7) Stop: 09/20/18 13:43 Last Admin: 09/18/18 17:45 Dose: 1 tab Rosuvastatin Calcium (Crestor) 20 mg PO [facility] Last Admin: 09/17/18 21:34 Dose: 20 mg Sennosides (Senokot Tab) 8.6 mg PO HS [facility] Last Admin: 09/17/18 21:34 Dose: 8.6 mg Sitagliptin Phosphate (Januvia) 25 mg PO DAILY [facility] Last Admin: 09/18/18 11:19 Dose: 25 mg Timolol Maleate (Timoptic 0.5% Ophth Soln) 0 drop OU BID [facility] Last Admin: 09/18/18 17:42 Dose: 1 drop - Labs Labs: 09/11/18 15:08 09/18/18 16:55 PT 12.1 SECONDS (9.7-12.2) 09/14/18 05:48 INR 1.1 09/14/18 05:48 APTT 28.1 SECONDS (21-34) 09/14/18 05:48 - Constitutional Appears: Well - Head Exam Head Exam: ATRAUMATIC, NORMAL INSPECTION, NORMOCEPHALIC - Eye Exam Eye Exam: EOMI, Normal appearance, PERRL Pupil Exam: NORMAL ACCOMODATION, PERRL - ENT Exam ENT Exam: Mucous Membranes Moist, Normal Exam - Neck Exam Neck Exam: Full ROM, Normal Inspection. absent: Lymphadenopathy - Respiratory Exam Respiratory Exam: Decreased Breath Sounds - Cardiovascular Exam Cardiovascular Exam: REGULAR RHYTHM, +S1, +S2 - GI/Abdominal Exam GI & Abdominal Exam: Soft, Diminished Bowel Sounds - Rectal Exam Rectal Exam: Deferred - Neurological Exam Neurological Exam: Oriented x3 Assessment and Plan - Assessment and Plan (Free Text) Plan: plan discussed with patient moderate complexity of care medications reviewed labs reviewed vitals reviewed aspirin crestor digoxin glucophage xr heparin januvia levemir loressor lotrisone meropenem novolog percocet plavix senokot tab sinemet starlix timoptic trusopt tylenol vancomycin
--- NOTE | 2018-09-19 01:27 | CP.PCM.DIS ---
Provider - Provider Date of Admission: 09/11/18 17:03 Attending physician: Dane Franklin MD Consults: 09/11/18 17:04 Podiatry Consult Routine Comment: Consulting Provider: Andrés Gambino Consulting Physician: Andrés Gambino Reason for Consult: gangrenous toe, 09/11/18 18:49 General Surgery Consult Routine Comment: Consulting Provider: Jeremi Pearson Jr. Consulting Physician: Jeremi Pearson Jr. 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 leg pain, gangr toe 09/11/18 19:59 Infectious Disease Consult Routine Comment: Consulting Provider: Zenon Walsh Consulting Physician: Zenon Walsh Reason for Consult: decubitus 09/11/18 23:10 Nursing Referral for Palliative Care Routine Comment: routine Physician Instructions: referral Reason For Exam: palliative score 5 09/11/18 23:28 Case Management Referral Routine Comment: routine Physician Instructions: referral Reason For Exam: From [facility] Reason for Referral: Discharge Planning Nursing Referral for Wound Care Routine Comment: routine Physician Instructions: referral Reason For Exam: geoff score 16, with sacral decub 09/13/18 11:48 Cardiology Consult Routine Comment: NOtified by DENTAL TECH Consulting Provider: Salo Armstrong Consulting Physician: Salo Armstrong Reason for Consult: pre op clearance Time Spent in preparation of Discharge (in minutes): 30 Hospital Course - Lab Results Lab Results: Micro Results 09/11/18 16:11 Blood Blood Culture - Final NO GROWTH AFTER 5 DAYS 09/11/18 16:11 Blood Gram Stain - Final TEST NOT PERFORMED 09/11/18 16:11 Blood Blood Culture - Final NO GROWTH AFTER 5 DAYS 09/11/18 16:11 Blood Gram Stain - Final TEST NOT PERFORMED 09/11/18 16:20 Urine Random Urine Culture - Final Providencia Stuartii 09/11/18 17:42 Toe Gram Stain - Final 09/11/18 17:42 Toe Wound Culture - Final Providencia Stuartii Most Recent Lab Values WBC 10.5 K/uL (4.8-10.8) 09/11/18 15:08 RBC 3.46 Mil/uL (3.80-5.20) L 09/11/18 15:08 Hgb 11.2 g/dL (11.0-16.0) 09/11/18 15:08 Hct 33.5 % (34.0-47.0) L 09/11/18 15:08 MCV 96.8 fL (81.0-99.0) 09/11/18 15:08 MCH 32.2 pg (27.0-31.0) H 09/11/18 15:08 MCHC 33.3 g/dL (33.0-37.0) 09/11/18 15:08 RDW 14.5 % (11.5-14.5) 09/11/18 15:08 Plt Count 413 K/uL (130-400) H D 09/11/18 15:08 MPV 8.7 fL (7.2-11.7) 09/11/18 15:08 Neut % (Auto) 67.2 % (50.0-75.0) 09/11/18 15:08 Lymph % (Auto) 21.1 % (20.0-40.0) 09/11/18 15:08 [place] % (Auto) 7.8 % (0.0-10.0) 09/11/18 15:08 Eos % (Auto) 3.4 % (0.0-4.0) 09/11/18 15:08 Baso % (Auto) 0.5 % (0.0-2.0) 09/11/18 15:08 Neut # (Auto) 7.0 K/uL (1.8-7.0) 09/11/18 15:08 Lymph # (Auto) 2.2 K/uL (1.0-4.3) 09/11/18 15:08 [place] # (Auto) 0.8 K/uL (0.0-0.8) 09/11/18 15:08 Eos # (Auto) 0.4 K/uL (0.0-0.7) 09/11/18 15:08 Baso # (Auto) 0.1 K/uL (0.0-0.2) 09/11/18 15:08 Differential Comment 09/11/18 15:08 ESR 53 mm/hr (0-20) H 09/12/18 11:10 PT 12.1 SECONDS (9.7-12.2) 09/14/18 05:48 INR 1.1 09/14/18 05:48 APTT 28.1 SECONDS (21-34) 09/14/18 05:48 pO2 19 mm/Hg (30-55) L 09/11/18 15:38 VBG pH 7.31 (7.32-7.43) L 09/11/18 15:38 VBG pCO2 60 mmHg (40-60) 09/11/18 15:38 VBG HCO3 24.8 mmol/L 09/11/18 15:38 VBG Total CO2 32.0 mmol/L (22-28) H 09/11/18 15:38 VBG O2 Sat (Calc) 27.0 % (40-65) L 09/11/18 15:38 VBG Base Excess 2.4 mmol/L (0.0-2.0) H 09/11/18 15:38 VBG Potassium 4.4 mmol/L (3.6-5.2) 09/11/18 15:38 Sodium 138.0 mmol/l (132-148) 09/11/18 15:38 Chloride 102.0 mmol/L (98-107) 09/11/18 15:38 Glucose 223 mg/dl (65-105) H 09/11/18 15:38 Lactate 2.0 mmol/L (0.7-2.1) 09/11/18 15:38 Sodium 137 mmol/L (132-148) 09/18/18 16:55 Potassium 4.8 mmol/L (3.6-5.2) 09/18/18 16:55 Chloride 98 mmol/L (98-107) 09/18/18 16:55 Carbon Dioxide 28 mmol/L (22-30) 09/18/18 16:55 Anion Gap 15 (10-20) 09/18/18 16:55 BUN 21 mg/dL (7-17) H 09/18/18 16:55 Creatinine 0.7 mg/dL (0.7-1.2) 09/18/18 16:55 Est GFR ( Amer) > 60 09/18/18 16:55 Est GFR (Non-Af Amer) > 60 09/18/18 16:55 POC Glucose (mg/dL) 238 mg/dL (65-110) H 09/18/18 16:58 Random Glucose 235 mg/dL (65-105) H 09/18/18 16:55 Calcium 9.8 mg/dl (8.6-10.4) 09/18/18 16:55 Phosphorus 4.2 mg/dL (2.5-4.5) 09/18/18 16:55 Magnesium 1.9 mg/dL (1.6-2.3) 09/18/18 16:55 Total Bilirubin 0.3 mg/dL (0.2-1.3) 09/18/18 16:55 AST 38 U/L (14-36) H D 09/18/18 16:55 ALT 16 U/L (9-52) 09/18/18 16:55 Alkaline Phosphatase 136 U/L (38-126) H 09/18/18 16:55 C-Reactive Protein 46.00 mg/L (0.0-9.9) H 09/12/18 11:10 Total Protein 7.3 g/dL (6.3-8.3) 09/18/18 16:55 Albumin 4.1 g/dL (3.5-5.0) 09/18/18 16:55 Globulin 3.3 gm/dL (2.2-3.9) 09/18/18 16:55 Albumin/Globulin Ratio 1.2 (1.0-2.1) 09/18/18 16:55 Venous Blood Potassium 4.4 mmol/L (3.6-5.2) 09/11/18 15:38 Urine Color Yellow (YELLOW) 09/11/18 16:20 Urine Clarity Turbid (Clear) 09/11/18 16:20 Urine pH 5.0 (5.0-8.0) 09/11/18 16:20 Ur Specific [place] 1.015 (1.003-1.030) 09/11/18 16:20 Urine Protein 1+ mg/dL (NEGATIVE) H 09/11/18 16:20 Urine Glucose (UA) 1+ mg/dL (Normal) 09/11/18 16:20 Urine Ketones Negative mg/dL (NEGATIVE) 09/11/18 16:20 Urine Blood 1+ (NEGATIVE) H 09/11/18 16:20 Urine Nitrate Negative (NEGATIVE) 09/11/18 16:20 Urine Bilirubin Negative (NEGATIVE) 09/11/18 16:20 Urine Urobilinogen Normal mg/dL (0.2-1.0) 09/11/18 16:20 Ur Leukocyte Esterase 3+ Rosi/uL (Negative) H 09/11/18 16:20 Urine WBC (Auto) 3125 /hpf (0-5) H 09/11/18 16:20 Urine RBC (Auto) 12 /hpf (0-3) H 09/11/18 16:20 Urine WBC Clumps (Auto) Many /hpf (NONE) H 09/11/18 16:20 Ur Squamous Epith Cells 8 /hpf (0-5) H 09/11/18 16:20 Digoxin 0.4 ng/mL (0.8-2.0) L 09/13/18 20:23 Discharge Exam - Head Exam Head Exam: ATRAUMATIC, NORMAL INSPECTION, NORMOCEPHALIC Discharge Plan - Discharge Medications Prescriptions: Aztreonam [Azactam] 1 gm IVPB Q8H 42 Days vial Insulin Aspart, Recombinant [Novolog] See Protocol SQ ACHS 30 Days ml - Follow Up Plan Condition: GUARDED Disposition: REHAB FACILITY/REHAB UNIT Instructions: Heart Healthy Diet, Pressure Sores (DC), Urinary Tract Infection, Adult (DC), Gangrene (DC), Amputation of the Foot or Toe (DC) Referrals: Zenon Walsh MD [Staff Provider] - Yu Franklin MD [Staff Provider] - Andrés Gambino DPM [Staff Provider] -
--- NOTE | 2018-09-19 22:29 | CARD ---
APPROVED REPORT Date of service: 09/14/2018 EKG Measurement Heart [id number] <Conclusion> Sinus tachycardia Possible Anterior infarct, age undetermined Abnormal ECG
== END 2018-09-18 18:41 | DRG 255 ==
LOC: C.ER 12:51 → C.9E 17:03 → C.6T 18:56
PROVIDERS: ADMIT Internal Medicine Nephrology; ATTEND Internal Medicine Nephrology
PROC: 0Y6W0Z0 Detachment at Left 4th Toe, Complete, Open Approach (ICD-10-PCS; principal; 2018-09-14 07:30)
DX: E11.52 Type 2 diabetes mellitus with diabetic peripheral angiopathy with gangrene (principal); G93.41 Metabolic encephalopathy; N39.0 Urinary tract infection, site not specified; L02.612 Cutaneous abscess of left foot; I96 Gangrene, not elsewhere classified; L89.152 Pressure ulcer of sacral region, stage 2; M17.0 Bilateral primary osteoarthritis of knee; E78.00 Pure hypercholesterolemia, unspecified; E11.65 Type 2 diabetes mellitus with hyperglycemia; I10 Essential (primary) hypertension; G20 Parkinson's disease; F02.80 Dementia in other diseases classified elsewhere, unspecified severity, without behavioral disturbance, psychotic disturbance, mood disturbance, and anxiety; K21.9 Gastro-esophageal reflux disease without esophagitis; M06.9 Rheumatoid arthritis, unspecified; I82.509 Chronic embolism and thrombosis of unspecified deep veins of unspecified lower extremity; M81.0 Age-related osteoporosis without current pathological fracture; I35.0 Nonrheumatic aortic (valve) stenosis; Z86.73 Personal history of transient ischemic attack (TIA), and cerebral infarction without residual deficits; Z99.3 Dependence on wheelchair; Z91.81 History of falling